=== PATIENT | male | born 1940 | race African-American/Black ===

== ENCOUNTER → 2017-01-23 | Outpatient (CLI) | payer MEDICARE, OTHER ==
--- NOTE | 2017-01-23 11:42 | RADIOLOGY REPORT (SQ) ---
EXAM DESCRIPTION: CT CHEST WITHOUT COMPLETED DATE/TIME: 01/23/2017 9:44 am REASON FOR STUDY: LUNG CA C34.2 MALIGNANT NEOPLASM OF MIDDLE LOBE, BRONCHUS OR LUNG COMPARISON: CT chest 05/02/2015, 05/07/2016 TECHNIQUE: CT scan performed of the chest without intravenous contrast. Images reviewed with lung, soft tissue and bone windows. Reconstructed coronal and sagittal MPR images reviewed. All images st ored on PACS. All CT scanners at this facility use dose modulation, iterative reconstruction, and/or weight based d osing when appropriate to reduce radiation dose to as low as reasonably achievable (ALARA). [facility]: Dose Right [facility]: CareDose [facility]: Dose Right [facility]: Teradose 4D [facility]: [employer] RADIATION DOSE: Up-to-date CT equipment and radiation dose reduction techniques were employed. CTDIv ol: 11.8 mGy. DLP: 464 mGy-cm. mGy. LIMITATIONS: No technical limitations. FINDINGS: LUNGS AND PLEURA: Post right middle lobectomy. Lungs are otherwise hyperinflated from obstructive disease, but free of focal nodules or worrisome fi ndings. No acute infiltrates. No pleural effusion. No pneumothorax. HILAR AND MEDIASTINAL STRUCTURES: No identified masses or abnormal nodes. No obvious aneurysm. HEART AND VASCULAR STRUCTURES: No aneurysm. No pericardial effusion. Moderate coronary artery calci fication UPPER ABDOMEN: 8 cm cluster of right upper pole renal cortical cysts with calcification along the per iphery, stable compared to 2015. 2 mm left upper pole intrarenal nonobstructive stone. 2 cm left ad renal nodule unchanged from 2015. THYROID AND OTHER SOFT TISSUES: No masses. No adenopathy. BONES: No significant finding. HARDWARE: None in the chest. OTHER: No other significant findings. IMPRESSION: Post right middle lobectomy. No CT signs of recurrent or metastatic disease given history of lung cancer. TECHNICAL DOCUMENTATION: JOB ID: [id number] Quality ID # 436: Final reports with documentation of one or more dose reduction techniques (e.g., Au tomated exposure control, adjustment of the mA and/or kV according to patient size, use of iterative reconstruction technique) 2010 [employer]- All Rights Reserved
== END ==
LOC: RAD 09:22
PROVIDERS: ATTEND Internal Medicine
DX: C34.2 Malignant neoplasm of middle lobe, bronchus or lung (principal)
CPT/HCPCS: 71250

== ENCOUNTER → 2017-06-04 | Outpatient (CLI) | payer MEDICARE, OTHER ==
--- NOTE | 2017-06-04 12:32 | RADIOLOGY REPORT (SQ) ---
EXAM DESCRIPTION: CT CHEST WITH; CT ABD/PELVIS WITH IV ORAL COMPLETED DATE/TIME: 06/04/2017 11:59 am REASON FOR STUDY: COPD (J44.9), LUNG CA (C34.90), LOWER ABD PAIN (R10.30) J44.9 CHRONIC OBSTRUCTIVE PULMONARY DISEASE, UNSPECIFIED C34.90 MALIGNANT NEOPLASM OF UNSP PART OF UNSP BRONCHUS OR L R10.30 LOWER ABDOMINAL PAIN, UNSPECIFIED COMPARISON: PET-CT 06/15/2016 CT chest 05/02/2015, 05/07/2016, 01/23/2017 CONTRAST TYPE AND DOSE: contrast/concentration: Isovue 370.00 mg/ml; Total Contrast Delivered: 100.0 ml; Total Saline Delivered: 41.2 ml RENAL FUNCTION: Creatinine 0.93 TECHNIQUE: CT scan of the chest performed using helical scanning technique with dynamic intravenous contrast injection. Images reviewed with lung, soft tissue and bone windows. Reconstructed coronal a nd sagittal MPR images reviewed. All images stored on PACS. CT scan of the abdomen and pelvis performed with intravenous and with oral contrastusing helical scan parisa technique with dynamic intravenous contrast injection. Images reviewed with lung, soft tissue a nd bone windows. Reconstructed coronal and sagittal MPR images reviewed. Delayed images for evaluat ion of the urinary system also acquired and evaluated. All images stored on PACS. All CT scanners at this facility use dose modulation, iterative reconstruction, and/or weight based d osing when appropriate to reduce radiation dose to as low as reasonably achievable (ALARA). [facility]: Dose Right [facility]: CareDose [facility]: Dose Right [facility]: Teradose 4D [facility]: [employer] RADIATION DOSE: Up-to-date CT equipment and radiation dose reduction techniques were employed. CTDIv ol: 13.5 - 17.3 mGy. DLP: 1847 mGy-cm. . LIMITATIONS: None. FINDINGS: CHEST: LUNGS AND PLEURA: Post right middle lobectomy with surgical janny at the right hilum. There are changes of obstructive disease at the lung apices, stable. No large bulla or blebs. No ac newtok infiltrates, pleural effusion, pneumothorax. Old post thoracotomy right pleural thickening on ax ial image 31. HILAR AND MEDIASTINAL STRUCTURES: No identified masses or abnormal nodes. HEART AND VASCULAR STRUCTURES: No aneurysm or dissection. No central pulmonary emboli. No pericardi al effusion. HARDWARE: None. THYROID AND OTHER SOFT TISSUES: No masses. No adenopathy. BONES: No significant finding. OTHER: No other significant finding. ABDOMEN AND PELVIS: LIVER: Normal size. No masses. No dilated ducts. SPLEEN: Normal size. No focal lesions. PANCREAS: No masses. No significant calcifications. No adjacent inflammation or peripancreatic fluid collections. Pancreatic duct not dilated. GALLBLADDER: No identified stones by CT criteria. No inflammatory changes to suggest cholecystitis. ADRENAL GLANDS: Right adrenal gland unremarkable. Stable partially calcified left adrenal nodule, le ss than 2 cm in size. RIGHT KIDNEY AND URETER: No solid masses. 8.5 cm diameter right upper and mid poles cortical cyst wi th calcified septation, unchanged compared to previous studies No significant calcification. No hydr onephrosis or hydroureter. LEFT KIDNEY AND URETER: No solid masses. 3 mm left midpole intrarenal nonobstructive stone. No hydr onephrosis or hydroureter. AORTA AND VESSELS: No aneurysm. No dissection. Renal arteries, SMA, celiac without stenosis. RETROPERITONEUM: No retroperitoneal adenopathy, hemorrhage or masses. BOWEL AND PERITONEAL CAVITY: No masses or inflammatory changes. No free fluid or peritoneal masses. Patient drank oral contrast. No evidence of bowel obstruction. APPENDIX: Surgically absent ABDOMINAL WALL: No masses. No hernias. BONES: No significant or acute findings. PELVIS: Enlarged prostate, indenting the bladder base. 1.4 cm stone in the bladder. No free pelvic fluid. No pelvic masses. IMPRESSION: Post right middle lobectomy. Changes of obstructive disease at both lung apices. No CT evidence of metastatic disease to the chest abdomen or pelvis. Enlarged prostate with indentation of the bladder base. 1.4 cm bladder calculus, nonobstructive. NORMAL CT OF THE ABDOMEN AND PELVIS WITH ORAL AND INTRAVENOUS CONTRAST. TECHNICAL DOCUMENTATION: JOB ID: [id number] Quality ID # 436: Final reports with documentation of one or more dose reduction techniques (e.g., Au tomated exposure control, adjustment of the mA and/or kV according to patient size, use of iterative reconstruction technique) 2010 [employer]- All Rights Reserved
== END ==
LOC: RAD 08:41
PROVIDERS: ATTEND Family Medicine
DX: J44.9 Chronic obstructive pulmonary disease, unspecified (principal); C34.2 Malignant neoplasm of middle lobe, bronchus or lung; R10.30 Lower abdominal pain, unspecified
CPT/HCPCS: 71260; 74177

== ENCOUNTER → 2017-10-13 | Outpatient (CLI) | payer MEDICARE, OTHER ==
--- NOTE | 2017-10-13 11:26 | RADIOLOGY REPORT (SQ) ---
EXAM DESCRIPTION: CT CHEST WITHOUT COMPLETED DATE/TIME: 10/13/2017 9:48 am REASON FOR STUDY: C34.2 MALIGNANT NEOPLASM OF MIDDLE LOBE, BRONCHUS OR LUNG C34.2 MALIGNANT NEOPLAS M OF MIDDLE LOBE, BRONCHUS OR LUNG COMPARISON: CT chest 05/02/2015, 05/07/2016, 01/23/2017, 06/14/2017 TECHNIQUE: CT scan performed of the chest without intravenous contrast. Images reviewed with lung, soft tissue and bone windows. Reconstructed coronal and sagittal MPR images reviewed. All images st ored on PACS. All CT scanners at this facility use dose modulation, iterative reconstruction, and/or weight based d osing when appropriate to reduce radiation dose to as low as reasonably achievable (ALARA). [facility]: Dose Right [facility]: CareDose [facility]: Dose Right [facility]: Teradose 4D [facility]: [employer] RADIATION DOSE: CT Rad equipment meets quality standard of care and radiation dose reduction techniq ues were employed. CTDIvol: 9.3 mGy. DLP: 352 mGy-cm. mGy. LIMITATIONS: No technical limitations. FINDINGS: LUNGS AND PLEURA: Post right middle lobectomy. Lungs are hyperinflated and hyperlucent from obstructive disease. No acute infiltrates. No worrisom e pulmonary nodules. No pleural effusion. No pneumothorax. HILAR AND MEDIASTINAL STRUCTURES: No identified masses or abnormal nodes. No obvious aneurysm. HEART AND VASCULAR STRUCTURES: No aneurysm. No pericardial effusion. Moderate LAD calcification UPPER ABDOMEN: Stable 8 to 9 cm right upper pole septated renal cyst with thin rim calcification. Fa intly radiopaque stones in the gallbladder. THYROID AND OTHER SOFT TISSUES: Mild gynecomastia BONES: No significant finding. HARDWARE: None in the chest. OTHER: No other significant findings. IMPRESSION: Post right middle lobectomy. Obstructive lung disease. TECHNICAL DOCUMENTATION: JOB ID: [id number] Quality ID # 436: Final reports with documentation of one or more dose reduction techniques (e.g., Au tomated exposure control, adjustment of the mA and/or kV according to patient size, use of iterative reconstruction technique) 2010 [employer]- All Rights Reserved Reading location - IP/workstation name: [facility]
== END ==
LOC: RAD 09:53
PROVIDERS: ATTEND Internal Medicine
DX: C34.2 Malignant neoplasm of middle lobe, bronchus or lung (principal)
CPT/HCPCS: 71250

== ENCOUNTER → 2018-02-18 | Outpatient (CLI) | payer MEDICARE, OTHER ==
--- NOTE | 2018-02-18 11:14 | RADIOLOGY REPORT (SQ) ---
EXAM DESCRIPTION: CT CHEST WITHOUT COMPLETED DATE/TIME: 02/18/2018 10:30 am REASON FOR STUDY: LUNG CA (C34.2) C34.2 MALIGNANT NEOPLASM OF MIDDLE LOBE, BRONCHUS OR LUNG COMPARISON: 2014, 2016, 10/13/2017 TECHNIQUE: CT scan performed of the chest without intravenous contrast. Images reviewed with lung, soft tissue and bone windows. Reconstructed coronal and sagittal MPR images reviewed. All images st ored on PACS. All CT scanners at this facility use dose modulation, iterative reconstruction, and/or weight based d osing when appropriate to reduce radiation dose to as low as reasonably achievable (ALARA). [facility]: Dose Right [facility]: CareDose [facility]: Dose Right [facility]: Teradose 4D [facility]: [employer] RADIATION DOSE: CT Rad equipment meets quality standard of care and radiation dose reduction techniq ues were employed. CTDIvol: 11.0 mGy. DLP: 413 mGy-cm. mGy. LIMITATIONS: No technical limitations. FINDINGS: LUNGS AND PLEURA: Emphysematous changes. No masses. HILAR AND MEDIASTINAL STRUCTURES: No identified masses or abnormal nodes. No obvious aneurysm. HEART AND VASCULAR STRUCTURES: No aneurysm. Coronary artery calcifications. UPPER ABDOMEN: Stable appearance of the right upper pole complex renal mass with rim calcification. . THYROID AND OTHER SOFT TISSUES: No masses. No adenopathy. BONES: No significant finding. HARDWARE: None in the chest. OTHER: No other significant findings. IMPRESSION: Stable appearance of the lungs. Emphysema. Stable appearance of the abdomen. Coronary artery calcification. TECHNICAL DOCUMENTATION: JOB ID: [id number] Quality ID # 436: Final reports with documentation of one or more dose reduction techniques (e.g., Au tomated exposure control, adjustment of the mA and/or kV according to patient size, use of iterative reconstruction technique) 2010 [employer]- All Rights Reserved Reading location - IP/workstation name: [email or web address]
== END ==
LOC: RAD 09:58
PROVIDERS: ATTEND Internal Medicine
DX: C34.2 Malignant neoplasm of middle lobe, bronchus or lung (principal)
CPT/HCPCS: 71250

== ENCOUNTER → 2018-06-22 | Outpatient (CLI) | payer MEDICARE, OTHER ==
--- NOTE | 2018-06-22 09:09 | RADIOLOGY REPORT (SQ) ---
EXAM DESCRIPTION: CT CHEST WITHOUT COMPLETED DATE/TIME: 06/22/2018 8:18 am REASON FOR STUDY: LUNG CA (C34.2) C34.2 MALIGNANT NEOPLASM OF MIDDLE LOBE, BRONCHUS OR LUNG COMPARISON: 02/18/2018 TECHNIQUE: CT scan performed of the chest without intravenous contrast. Images reviewed with lung, soft tissue and bone windows. Reconstructed coronal and sagittal MPR images reviewed. All images st ored on PACS. All CT scanners at this facility use dose modulation, iterative reconstruction, and/or weight based d osing when appropriate to reduce radiation dose to as low as reasonably achievable (ALARA). [facility]: Dose Right [facility]: CareDose [facility]: Dose Right [facility]: Teradose 4D [facility]: [employer] RADIATION DOSE: CT Rad equipment meets quality standard of care and radiation dose reduction techniq ues were employed. CTDIvol: 11.2 mGy. DLP: 435 mGy-cm. mGy. LIMITATIONS: No technical limitations. FINDINGS: LUNGS AND PLEURA: Emphysematous changes in the lungs, stable findings. Stable post surgi madhu changes in the right hemithorax related to prior right middle lobectomy. Stable areas of linear scarring in the lungs, more so on the right. Patchy mild new nodular infiltrate in the right lower lobe, may be on the basis of atypical infection s, inflammatory/infectious etiologies. Stable mild bronchiectatic changes. No pneumothorax or pleural effusion. The central airways are cl ear. HILAR AND MEDIASTINAL STRUCTURES: No significant interval changes. HEART AND VASCULAR STRUCTURES: Mild atherosclerotic changes involving the thoracic aorta. Stable an eurysmal dilatation of the proximal descending thoracic aorta which measures 3.9 cm in diameter. Cor onary artery calcifications. No pericardial effusion. UPPER ABDOMEN: Stable complex appearing partially visualized upper-mid pole renal cyst with calcifie d septations. Small stable calcified granuloma. Small gallstones, stable finding. Mild atheroscler otic changes involving the visualized abdominal aorta. Limited exam. THYROID AND OTHER SOFT TISSUES: The visualized thyroid gland is stable in appearance. BONES: The osseous structures are stable in appearance. HARDWARE: None in the chest. OTHER: Bilateral gynecomastia, greater on the right, stable finding. IMPRESSION: 1. Since the previous examination dated 02/18/2018, patchy new mild nodular infiltrate i n the right lower lobe, may be on the basis of atypical infections, inflammatory/infectious etiologie s. 2. Stable post surgical changes in the right hemithorax. 3. Emphysematous changes in the lungs. 4. Additional stable findings as above. TECHNICAL DOCUMENTATION: JOB ID: [id number] Quality ID # 436: Final reports with documentation of one or more dose reduction techniques (e.g., Au tomated exposure control, adjustment of the mA and/or kV according to patient size, use of iterative reconstruction technique) 2010 [employer]- All Rights Reserved Reading location - IP/workstation name: [email or web address]
== END ==
LOC: RAD 07:58
PROVIDERS: ATTEND Physician Assistant Medical
DX: C34.2 Malignant neoplasm of middle lobe, bronchus or lung (principal)
CPT/HCPCS: 71250

== ENCOUNTER → 2018-12-21 | Outpatient (CLI) | payer MEDICARE, OTHER ==
--- NOTE | 2018-12-21 10:21 | RADIOLOGY REPORT (SQ) ---
EXAM DESCRIPTION: CT CHEST WITHOUT COMPLETED DATE/TIME: 12/21/2018 8:07 am REASON FOR STUDY: LUNG CA (C34.2) C34.2 MALIGNANT NEOPLASM OF MIDDLE LOBE, BRONCHUS OR LUNG COMPARISON: PET-CT 06/23/2016 CT chest 01/23/2017, 06/04/2017, 10/13/2017, 02/18/2018, 06/22/2018 TECHNIQUE: CT scan performed of the chest without intravenous contrast. Images reviewed with lung, soft tissue and bone windows. Reconstructed coronal and sagittal MPR images reviewed. All images st ored on PACS. All CT scanners at this facility use dose modulation, iterative reconstruction, and/or weight based d osing when appropriate to reduce radiation dose to as low as reasonably achievable (ALARA). [facility]: Dose Right [facility]: CareDose [facility]: Dose Right [facility]: Teradose 4D [facility]: [employer] RADIATION DOSE: CT Rad equipment meets quality standard of care and radiation dose reduction techniq ues were employed. CTDIvol: 10.1 mGy. DLP: 399 mGy-cm. mGy. LIMITATIONS: No technical limitations. FINDINGS: LUNGS AND PLEURA: Old right middle lobectomy. Changes of obstructive lung disease. Bronchiolitis tree in bud appearance in the right posterior costophrenic sulcus is unchanged from . No acute infiltrates. No pleural effusion. No pneumothorax. No worrisome pulmonary nodul es. HILAR AND MEDIASTINAL STRUCTURES: No hilar or mediastinal masses or adenopathy. HEART AND VASCULAR STRUCTURES: Stable mild ectasia of the proximal descending thoracic aorta, 3.9 cm in diameter. Moderate proximal LAD atherosclerotic calcification No pericardial effusion. UPPER ABDOMEN: Stable peripherally calcified complex cyst right upper pole kidney, faintly radiopaque gallstones, 1 cm calcified left adrenal nodule THYROID AND OTHER SOFT TISSUES: Bilateral gynecomastia BONES: No significant finding. HARDWARE: None in the chest. OTHER: No other significant findings. IMPRESSION: Post right middle lobectomy. Obstructive lung disease. TECHNICAL DOCUMENTATION: JOB ID: [id number] Quality ID # 436: Final reports with documentation of one or more dose reduction techniques (e.g., Au tomated exposure control, adjustment of the mA and/or kV according to patient size, use of iterative reconstruction technique) 2010 [employer]- All Rights Reserved Reading location - IP/workstation name: [facility]
== END ==
LOC: RAD 07:50
PROVIDERS: ATTEND Internal Medicine
DX: C34.2 Malignant neoplasm of middle lobe, bronchus or lung (principal)
CPT/HCPCS: 71250

== ENCOUNTER → 2019-03-04 | Outpatient (CLI) | payer MEDICARE, OTHER ==
--- NOTE | 2019-03-04 15:51 | RADIOLOGY REPORT (SQ) ---
EXAM DESCRIPTION: CT CHEST WITH COMPLETED DATE/TIME: 03/04/2019 2:42 pm REASON FOR STUDY: LUNG CA (C34.90) C34.90 MALIGNANT NEOPLASM OF UNSP PART OF UNSP BRONCHUS OR L COMPARISON: 12/21/2018 TECHNIQUE: CT scan of the chest performed using helical scanning technique with dynamic intravenous contrast injection. Images reviewed with lung, soft tissue and bone windows. Reconstructed coronal and sagittal MPR and MIP images reviewed. All images stored on PACS. All CT scanners at this facility use dose modulation, iterative reconstruction, and/or weight based d osing when appropriate to reduce radiation dose to as low as reasonably achievable (ALARA). [facility]: Dose Right [facility]: CareDose [facility]: Dose Right [facility]: Teradose 4D [facility]: [employer] CONTRAST TYPE AND DOSE: contrast/concentration: Isovue 350.00 mg/ml; Total Contrast Delivered: 80.0 ml; Total Saline Delivered: 55.0 ml RENAL FUNCTION: Not recorded here. Refer to technologist's notes. RADIATION DOSE: CT Rad equipment meets quality standard of care and radiation dose reduction techniq ues were employed. CTDIvol: 11.2 mGy. DLP: 483 mGy-cm. . LIMITATIONS: None. FINDINGS: LUNGS AND PLEURA: Mild centrilobular emphysema in the upper lobes. Lungs are generally hy perexpanded. There is no mass, infiltrate, or effusion. Right middle lobectomy. HILAR AND MEDIASTINAL STRUCTURES: No identified masses or abnormal nodes. HEART AND VASCULAR STRUCTURES: No aneurysm or dissection. No central pulmonary emboli. No pericardi al effusion. HARDWARE: None in the chest. UPPER ABDOMEN: Large septated cyst in the right kidney with septal calcifications. THYROID AND OTHER SOFT TISSUES: No masses. No adenopathy. BONES: No significant finding. OTHER: No other significant finding. IMPRESSION: Prior right middle lobectomy. Chronic lung changes. No evidence of metastatic disease or recurrence. Atypical right renal cyst. TECHNICAL DOCUMENTATION: JOB ID: [id number] Quality ID # 436: Final reports with documentation of one or more dose reduction techniques (e.g., Au tomated exposure control, adjustment of the mA and/or kV according to patient size, use of iterative reconstruction technique) 2010 [employer]- All Rights Reserved Reading location - IP/workstation name: [email or web address]
== END ==
LOC: RAD 14:19
PROVIDERS: ATTEND Family Medicine
DX: C34.90 Malignant neoplasm of unspecified part of unspecified bronchus or lung (principal)
CPT/HCPCS: 71260; 82565

== ENCOUNTER → 2019-03-09 | Outpatient (CLI) | payer MEDICARE, OTHER ==
--- NOTE | 2019-03-09 15:34 | RADIOLOGY REPORT (SQ) ---
EXAM DESCRIPTION: CT ABD/PELVIS WITH IV ORAL COMPLETED DATE/TIME: 03/09/2019 1:53 pm REASON FOR STUDY: R10.13 EPIGASTRIC PAIN C34.90 MALIGNANT NEOPLASM OF UNSP PART OF UNSP BRONC R10.13 EPIGASTRIC PAIN C34.90 MALIGNANT NEOPLASM OF UNSP PART OF UNSP BRONCHUS OR L COMPARISON: 06/04/2017 TECHNIQUE: CT scan of the abdomen and pelvis performed using helical scanning technique with dynamic intravenous contrast injection. No oral contrast. Images reviewed with lung, soft tissue, and bone windows. Reconstructed coronal and sagittal MPR images reviewed. Delayed images for evaluation of the urinary system also acquired. All images stored on PACS. All CT scanners at this facility use dose modulation, iterative reconstruction, and/or weight based d osing when appropriate to reduce radiation dose to as low as reasonably achievable (ALARA). [facility]: Dose Right [facility]: CareDose [facility]: Dose Right [facility]: Teradose 4D [facility]: [employer] CONTRAST TYPE AND DOSE: contrast/concentration: Isovue 350.00 mg/ml; Total Contrast Delivered: 100.0 ml; Total Saline Delivered: 70.0 ml RENAL FUNCTION: Creatinine RADIATION DOSE: CT Rad equipment meets quality standard of care and radiation dose reduction techniq ues were employed. CTDIvol: 11.9 - 15.6 mGy. DLP: 1525 mGy-cm.. LIMITATIONS: None. FINDINGS: LOWER CHEST: No significant findings. No nodules or infiltrates. LIVER: Hepatic steatosis. No focal lesions. No biliary ductal dilation. SPLEEN: Normal size. No focal lesions. PANCREAS: No masses. No significant calcifications. No adjacent inflammation or peripancreatic fluid collections. Pancreatic duct not dilated. GALLBLADDER: Decompressed. No radiopaque stones. ADRENAL GLANDS: Unchanged left adrenal gland calcifications and nodular thickening. Unremarkable rig ht adrenal gland. RIGHT KIDNEY AND URETER: Unchanged right renal cysts, some of which demonstrate peripheral calcificat ions. No nephrolithiasis. No hydronephrosis or hydroureter. LEFT KIDNEY AND URETER: No solid masses. No significant calcifications. No hydronephrosis or hydr oureter. AORTA AND VESSELS: No aneurysm. No dissection. Renal arteries, SMA, celiac without stenosis. RETROPERITONEUM: No retroperitoneal adenopathy, hemorrhage or masses. BOWEL AND PERITONEAL CAVITY: No evidence of intestinal obstruction. No focal bowel wall thickening. APPENDIX: Not visualized. PELVIS: Unremarkable urinary bladder. Decreased size of the prostate compared to prior exam. No lym phadenopathy. No free pelvic fluid. ABDOMINAL WALL: No masses. No hernias. BONES: No significant or acute findings. OTHER: No other significant finding. IMPRESSION: 1. No evidence of intra-abdominal/pelvic metastatic disease. 2. No evidence of acute intra-abdominal/pelvic process. 3. Hepatic steatosis. TECHNICAL DOCUMENTATION: JOB ID: [id number] Quality ID # 436: Final reports with documentation of one or more dose reduction techniques (e.g., Au tomated exposure control, adjustment of the mA and/or kV according to patient size, use of iterative reconstruction technique) 2010 [employer]- All Rights Reserved Reading location - IP/workstation name: [email or web address]
== END ==
LOC: RAD 13:19
PROVIDERS: ATTEND Family Medicine
DX: C34.90 Malignant neoplasm of unspecified part of unspecified bronchus or lung (principal); K76.0 Fatty (change of) liver, not elsewhere classified; R10.13 Epigastric pain
CPT/HCPCS: 74177

== ENCOUNTER 2019-05-03 08:18 | Day surgery (SDC) | payer MEDICARE, OTHER ==
[~2019-05-03 08:18] MED LIST: CHONDR SU A NA/HYALUR INTRAOC KIT (SURGICARE) ONE; EPINEPHRINE INJ/PF 1 MG/1 ML AMPULE ONE; KETOROLAC TROMETHAMINE 0.45% 4 DROP/0.4 ML DROPERETTE OS PRN; LIDOCAINE 1%/PHENYLEPHRINE 1.5% 1 ML VIAL ONE
[2019-05-03] MEDS: CYCLOPENTOLATE 0.2%/PHENYLEPHRINE 1% OPH SOLN 2 ML OS PRN ×3 (09:23→09:53)
[2019-05-03] MEDS: TROPICAMIDE 1% OPH SOLN 15 ML OS PRN ×3 (09:23→09:53)
[2019-05-03] MEDS: BESIFLOXACIN HCL 0.6% OPH SUSP 5 ML BOTTLE OS PRN ×4 (09:23→10:26)
[2019-05-03] MEDS: TETRACAINE HCL 0.5% OPH SOLN 4 ML OS PRN ×3 (09:24→10:08)
[2019-05-03] MEDS ORDERED: MIDAZOLAM 2 MG/2 ML INJ ONE (09:50)
[2019-05-03] MEDS ORDERED: FENTANYL CITRATE INJ/PF 100 MCG/2 ML AMPUL ONE (09:50)
[2019-05-03] MEDS: DORZOLAMIDE HCL 2%/TIMOLOL MALEAT 0.5% OPH SOLN 10 ML OS PRN ×2 (10:26)
--- NOTE | 2019-05-03 12:18 | Operative Report ---
Operative Report-[facility] Operative Report: DATE OF SURGERY: 05/04/2019 PREOPERATIVE DIAGNOSIS: Cataracts, left eye POSTOPERATIVE DIAGNOSIS: Cataract, left eye OPERATION: Cataract extraction with insertion of an IOL of the left eye. Intraocular Lens Model: [21.0 sn60wf] reason for surgery was difficulty seeing the television SURGEON: Marcel Silveira MD ANESTHESIA: Topical PROCEDURE: After obtaining appropriate consent, the patient's left eye was prepped and draped in a sterile fashion as well as the surgeon in the sterile manner and cataract surgery was started. First a paracentesis blade was used to make a side-port incision. Viscoelastic was used to inflate the anterior chamber. Next a 2.4 mm incision was made with a 2.4 mm blade, clear corneal temporarily. A continuous capsulorrhexis was made using a cystotome and Utrata forceps. Following this hydrodissection was carried out to make commands fully loose and mobile and it was rotated 90 degrees. Following this, a divide and conquer technique was used to phacoemulsify the lens. The remaining cortex was removed with an irrigation/aspiration. Provisc was instilled into the capsular bag to inflate the bag.The intracular lens was placed. The remaining viscoelastic material was removed with irrigation/aspiration. Following this, the incision was found to be watertight. Besivance and Cosopt was instilled into the eye and a protective shield was placed over the eye. The patient was turned to the postoperative recovery in a stable condition.
== END 2019-05-03 11:12 | disposition home or self-care (01) ==
LOC: SC 08:18
PROVIDERS: ATTEND Internal Medicine
DX: H25.812 Combined forms of age-related cataract, left eye (principal); I10 Essential (primary) hypertension; E11.9 Type 2 diabetes mellitus without complications; Z79.899 Other long term (current) drug therapy; Z79.84 Long term (current) use of oral hypoglycemic drugs; Z85.118 Personal history of other malignant neoplasm of bronchus and lung
CPT/HCPCS: 66984; 82962; J2250; J3490 ×2; A9270; J0171; J3010; J2370; V2632

== ENCOUNTER 2019-06-02 09:06 | Day surgery (SDC) | payer MEDICARE, OTHER ==
[~2019-06-02 09:06] MED LIST changes: +KETOROLAC TROMETHAMINE 0.45% 4 DROP/0.4 ML DROPERETTE OD PRN; -KETOROLAC TROMETHAMINE 0.45% 4 DROP/0.4 ML DROPERETTE OS PRN
[2019-06-02] MEDS ORDERED: ONDANSETRON HCL INJ/PF 4 MG/2 ML SDV ONE (09:26)
[2019-06-02] MEDS ORDERED: MIDAZOLAM 2 MG/2 ML INJ ONE (09:26)
[2019-06-02] MEDS ORDERED: FENTANYL CITRATE INJ/PF 100 MCG/2 ML AMPUL ONE (09:26)
[2019-06-02] MEDS: BESIFLOXACIN HCL 0.6% OPH SUSP 5 ML BOTTLE OD PRN ×4 (10:05→11:07)
[2019-06-02] MEDS: CYCLOPENTOLATE 0.2%/PHENYLEPHRINE 1% OPH SOLN 2 ML OD PRN ×3 (10:05→10:30)
[2019-06-02] MEDS: TETRACAINE HCL 0.5% OPH SOLN 4 ML OD PRN ×3 (10:05→10:48)
[2019-06-02] MEDS: TROPICAMIDE 1% OPH SOLN 15 ML OD PRN ×3 (10:05→10:30)
[2019-06-02] MEDS: DORZOLAMIDE HCL 2%/TIMOLOL MALEAT 0.5% OPH SOLN 10 ML OD PRN ×2 (10:58→11:07)
--- NOTE | 2019-06-03 07:10 | Operative Report ---
Operative Report-[facility] Operative Report: DATE OF SURGERY: 06/02/2019 PREOPERATIVE DIAGNOSIS: Cataract, right eye POSTOPERATIVE DIAGNOSIS: Cataract, right eye OPERATION: Cataract extraction with insertion of an IOL of the right eye. Intraocular Lens Model: [20.5mp45oj] Reason for surgery was difficulty seeing words on the television SURGEON: Marcel Silveira MD ANESTHESIA: Topical PROCEDURE: After obtaining appropriate consent, the patient's right eye was prepped and draped in a sterile fashion as well as the surgeon in the sterile manner and cataract surgery was started. First a paracentesis blade was used to make a side-port incision. Viscoelastic was used to inflate the anterior chamber. Next a 2.4 mm incision was made with a 2.4 mm blade, clear corneal temporarily. A continuous capsulorrhexis was made using a cystotome and Utrata forceps. Following this hydrodissection was carried out to make the katherin fully loose and mobile and it was rotated. Following this, a divide and conquer technique was used to phacoemulsify the katherin. The remaining cortex was removed with an irrigation/aspiration. Provisc was instilled into the capsular bag to inflate the bag. The intraocular lens was placed. The remaining viscoelastic material was removed with irrigation/aspiration. Following this, the incision was found to be watertight. Besivance and Cosopt was instilled into the eye and a protective shield was placed over the eye. The patient was reurned to the postoperative recovery in a stable condition.
== END 2019-06-02 11:47 | disposition home or self-care (01) ==
LOC: SC 09:06
PROVIDERS: ATTEND Internal Medicine
DX: H25.811 Combined forms of age-related cataract, right eye (principal); Z96.1 Presence of intraocular lens; H40.1132 Primary open-angle glaucoma, bilateral, moderate stage; G47.33 Obstructive sleep apnea (adult) (pediatric); Z85.118 Personal history of other malignant neoplasm of bronchus and lung
CPT/HCPCS: 66984; 82962; V2632; J2250; J3490 ×2; A9270; J0171; J2405; J2370; 142; J3010

== ENCOUNTER → 2019-07-01 | Outpatient (CLI) | payer MEDICARE, OTHER ==
--- NOTE | 2019-07-01 14:57 | RADIOLOGY REPORT (SQ) ---
EXAM DESCRIPTION: CT CHEST WITHOUT COMPLETED DATE/TIME: 07/01/2019 1:42 pm REASON FOR STUDY: C34.2 MALIGNANT NEOPLASM OF MIDDLE LOBE, BRONCHUS OR LUNG C34.2 MALIGNANT NEOPLAS M OF MIDDLE LOBE, BRONCHUS OR LUNG COMPARISON: 03/04/2019 TECHNIQUE: CT scan performed of the chest without intravenous contrast. Images reviewed with lung, soft tissue and bone windows. Reconstructed coronal and sagittal MPR images reviewed. All images st ored on PACS. All CT scanners at this facility use dose modulation, iterative reconstruction, and/or weight based d osing when appropriate to reduce radiation dose to as low as reasonably achievable (ALARA). [facility]: Dose Right [facility]: CareDose [facility]: Dose Right [facility]: Teradose 4D [facility]: [email or web address] RADIATION DOSE: CT Rad equipment meets quality standard of care and radiation dose reduction techniq ues were employed. CTDIvol: 9.8 mGy. DLP: 365 mGy-cm. mGy. LIMITATIONS: No technical limitations. FINDINGS: LUNGS AND PLEURA: Postsurgical changes from the right middle lobectomy. No new discrete n odules or masses. Mild right basilar nodular pleural thickening, likely postsurgical. Mild addition al right basilar ground-glass attenuation and scarring. Mild upper lobe predominant emphysema. No p leural effusion or pneumothorax. HILAR AND MEDIASTINAL STRUCTURES: No discrete mediastinal, hilar or axillary adenopathy. 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 HEART AND VASCULAR STRUCTURES: Scattered coronary atherosclerosis. Normal heart size. No pericardia l effusion. UPPER ABDOMEN: Unchanged right renal cystic lesion with septal calcifications. THYROID AND OTHER SOFT TISSUES: Unremarkable thyroid. Gynecomastia BONES: No significant finding. HARDWARE: None in the chest. OTHER: No other significant findings. IMPRESSION: Stable postsurgical changes within the right hemithorax without evidence of new intratho racic disease. 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 Stable partially evaluated complex right renal cyst. TECHNICAL DOCUMENTATION: JOB ID: [id number] Quality ID # [id number]: Final reports with documentation of one or more dose reduction techniques (e.g., Au tomated exposure control, adjustment of the mA and/or kV according to patient size, use of iterative reconstruction technique) 2010 [employer]- All Rights Reserved Reading location - IP/workstation name: [email or web address]
== END ==
LOC: RAD 13:24
PROVIDERS: ATTEND Internal Medicine
DX: C34.2 Malignant neoplasm of middle lobe, bronchus or lung (principal); N28.1 Cyst of kidney, acquired
CPT/HCPCS: 71250

== ENCOUNTER → 2020-01-02 | Outpatient (CLI) | payer MEDICARE, OTHER ==
--- NOTE | 2020-01-02 09:54 | RADIOLOGY REPORT (SQ) ---
EXAM DESCRIPTION: CT CHEST WITHOUT IMAGES COMPLETED DATE/TIME: 01/02/2020 7:45 am REASON FOR STUDY: MAL HARJEET OF MIDDLE LOBE C34.2 MALIGNANT NEOPLASM OF MIDDLE LOBE, BRONCHUS OR LUNG COMPARISON: CT of the chest without contrast from 07/01/2019. TECHNIQUE: CT scan performed of the chest without intravenous contrast. Images reviewed with lung, soft tissue and bone windows. Reconstructed coronal and sagittal MPR images reviewed. All images st ored on PACS. All CT scanners at this facility use dose modulation, iterative reconstruction, and/or weight based d osing when appropriate to reduce radiation dose to as low as reasonably achievable (ALARA). [facility]: Dose Right [facility]: CareDose [facility]: Dose Right [facility]: Teradose 4D [facility]: [employer] RADIATION DOSE: CT Rad equipment meets quality standard of care and radiation dose reduction techniq ues were employed. CTDIvol: 14.7 mGy. DLP: 654 mGy-cm. LIMITATIONS: No technical limitations. FINDINGS: LUNGS AND PLEURA: Status post right middle lobectomy. There is unchanged upper lobe predo minant centrilobular emphysema. The areas of bronchiectasis/bronchiectasis with nonsegmental mucous plugs in the lower lobes and the peripheral/dependent reticulonodular opacities in the lower lobes (r ight greater than left) are also unchanged. There is no acute consolidation, ground-glass opacificat ion or pleural effusion. HILAR AND MEDIASTINAL STRUCTURES: Evaluation of the tk for adenopathy is limited due to the absence of intravenous contrast. There is no mediastinal adenopathy or mass. HEART AND VASCULAR STRUCTURES: Atherosclerotic calcification of the coronary arteries and thoracic ao rta. The caliber of the aortic arch is unchanged. There is no cardiomegaly or pericardial effusion. UPPER ABDOMEN: Hepatic steatosis, cholelithiasis, 18 x 12 mm left adrenal nodule with round calcifica tion, 3 mm left upper pole caliceal calculus and complex partially exophytic right renal cyst. THYROID AND OTHER SOFT TISSUES: Gynecomastia. There is no adenopathy or mass. BONES: Partial osseous bridge between the right 7th and 8th ribs. There is no acute fracture or osse ous lesion. HARDWARE: None in the chest. OTHER: No other findings. IMPRESSION: 1. Unchanged chronic findings as detailed above. There is no acute cardiopulmonary proc ess. 2. Unchanged caliber of the aortic arch. TECHNICAL DOCUMENTATION: JOB ID: [id number] Quality ID # [id number]: Final reports with documentation of one or more dose reduction techniques (e.g., Au tomated exposure control, adjustment of the mA and/or kV according to patient size, use of iterative reconstruction technique) 2010 [employer]- All Rights Reserved Reading location - IP/workstation name: [email or web address]
== END ==
LOC: RAD 07:49
PROVIDERS: ATTEND Internal Medicine
DX: C34.2 Malignant neoplasm of middle lobe, bronchus or lung (principal)
CPT/HCPCS: 71250

== ENCOUNTER 2020-07-03 11:41 | Inpatient (IN) | payer MEDICARE, OTHER ==
[2020-07-03] MEDS ORDERED: FAMOTIDINE INJ/PF 20 MG/2 ML SDV IV ONE (12:04)
[2020-07-03] MEDS ORDERED: DEXAMETHASONE SOD PHOS INJ 10 MG/1 ML VIAL IV ONE (12:04)
[2020-07-03] MEDS ORDERED: AZITHROMYCIN INJ 500 MG VIAL IV ONE (12:05)
--- NOTE | 2020-07-03 12:10 | ER Document Report ---
ED Respiratory Problem - General Chief Complaint: Shortness Of Breath Stated Complaint: BREATHING PROBLEMS Time Seen by Provider: 07/03/20 12:02 Mode of Arrival: Medic Information source: Patient, Emergency Med Personnel Notes: MY NOTES 79-year-old black male arrives by EMS with acute onset of shortness of breath dyspnea. He was positive for COVID-19 last .Today is Thursday. Patient reports 5 years ago at [facility] he had a right middle lobe pneumonectomy pneumonectomy on the right because of lung cancer. He is followed by Dr. Mckeon as well as Dr. Donovan for PMD. Per EMS he received CPaP because of a 42 room air pulse ox. He was given Xopenex 1.25 as well as 2 treatments of albuterol Atrovent. Also patient was given 2 g of magnesium and Solu-Medrol 125 IV. Patient arrives with CPAP at 85%. This was adjusted by the cable splicing technician in room #5 and he increased to 97% with cold fingers. He had 28 breaths/min. A quick Covid test per EMS was negative. He is running fever today. Status post breathing treatments patient has expiratory crackles bilaterally anterior chest. Patient is awake and alert and very conversive and able to give full sentences. Patient takes eyedrops timolol and takes metoprolol 50 p.o. as well as Zocor and Metformin and Durezol Symbicort PROLENSA. His last CT was 02 January 2020 with gynecomastia cholelithiasis fatty liver and s tatus post right middle lobe lobectomy per Dr. Cueto. TRAVEL OUTSIDE OF THE [place] IN LAST 30 DAYS: No - HPI Patient complains to provider of: Chest pain, CHF, Cough, Short of breath Onset: This morning Duration: Better Initiating Event: Exertion Quality of pain: No pain Severity: Moderate Pain Level: 3 Context: Hx CHF, Hx COPD Short of Breath: Severe - Related Data Allergies/Adverse Reactions: No Known Drug Allergies Allergy (Verified 05/30/19 13:52) Past Medical History - General Information source: Patient - Social History Smoking Status: Former Smoker Cigarette use (# per day): No Chew tobacco use (# tins/day): No Smoking Education Provided: No Frequency of alcohol use: None Drug Abuse: None Lives with: Family Family History: Reviewed & Not Pertinent Patient has suicidal ideation: No Patient has homicidal ideation: No - Past Medical History Cardiac Medical History: Reports: Hx Hypercholesterolemia, Hx Hypertension Denies: Hx Heart Attack Pulmonary Medical History: Denies: Hx Asthma Neurological Medical History: Denies: Hx Cerebrovascular Accident, Hx Seizures Endocrine Medical History: Reports: Hx Diabetes Mellitus Type 2 GI Medical History: Denies: Hx Hepatitis, Hx Hiatal Hernia, Hx Ulcer Infectious Medical History: Denies: Hx Hepatitis Past Surgical History: Denies: Hx Open Heart Surgery, Hx Pacemaker - Immunizations Hx Diphtheria, Pertussis, Tetanus Vaccination: No Review of Systems - Review of Systems Constitutional: See HPI, Fever, Weakness, Recent illness EENT: No symptoms reported Cardiovascular: No symptoms reported Respiratory: See HPI, Cough, Hurts to breathe, Short of breath, Sputum, Wheezing Gastrointestinal: No symptoms reported Genitourinary: No symptoms reported Male Genitourinary: No symptoms reported Musculoskeletal: No symptoms reported Skin: No symptoms reported Hematologic/Lymphatic: No symptoms reported Neurological/Psychological: No symptoms reported -: Yes All other systems reviewed and negative Physical Exam - Vital signs Vitals: Resp Pulse Ox 30 H 97 07/03/20 11:45 07/03/20 11:45 Interpretation: Hypertensive, Tachycardic, Hypoxic, Tachypneic - General General appearance: Appears well, Alert - HEENT Head: Normocephalic, Atraumatic Eyes: Normal Pupils: PERRL - Respiratory Respiratory status: Respiratory distress, Labored, Tachypnea Chest status: Nontender Breath sounds: Rales - Anterior chest wheezing, Wheezing Chest palpation: Normal - Cardiovascular Rhythm: Tachycardia Heart sounds: Normal auscultation Murmur: No - Abdominal Inspection: Obese Distension: Distended Bowel sounds: Normal Tenderness: Nontender Organomegaly: No organomegaly - Rectal Prostate: Other - Deferred - Genitourinary Scrotum: Other - Deferred - Back Back: Normal, Nontender - Extremities General upper extremity: Nontender, Edema, Normal color, Normal ROM, Normal temperature General lower extremity: Nontender, Edema, Normal color, Normal ROM, Normal temperature, Normal weight bearing. No: Octaviano's sign - Neurological Neuro grossly intact: Yes Cognition: Normal Orientation: AAOx4 [place] Coma Scale Eye Opening: Spontaneous [place] Coma Scale Verbal: Oriented [place] Coma Scale Motor: Obeys Commands [place] Coma Scale Total: 15 Speech: Normal Motor strength normal: LUE, RUE, LLE, RLE Sensory: Normal - Psychological Associated symptoms: Anxious - Skin Skin Temperature: Warm Skin Moisture: Dry Skin Color: Normal Course - Vital Signs Vital signs: Temp Pulse Resp BP Pulse Ox 101.5 F H 23 H 154/87 H 91 L 07/03/20 12:12 07/03/20 13:31 07/03/20 13:31 07/03/20 13:31 - Laboratory Results Result Diagrams: 07/03/20 11:58 07/03/20 11:58 Laboratory Results Interpreted: 07/03/20 07/03/20 07/03/20 11:58 11:58 11:58 Hgb 12.8 L RDW 14.6 H Seg Neuts % (Manual) 94 H Lymphocytes % (Manual) 3 L Monocytes % (Manual) 2 L Abs Neuts (Manual) 9.5 H Abs Lymphs (Manual) 0.4 L PT 15.6 H Carbonic Acid ABG pCO2 Est GFR (MDRD) Non-Af 57 L Glucose 175 H AST 103 H ALT 59 H 07/03/20 13:35 Hgb RDW Seg Neuts % (Manual) Lymphocytes % (Manual) Monocytes % (Manual) Abs Neuts (Manual) Abs Lymphs (Manual) PT Carbonic Acid 1.03 L ABG pCO2 34.1 L Est GFR (MDRD) Non-Af Glucose AST ALT Critical Laboratory Results Reviewed: Yes - Radiology Results Radiology Studies Status: Radiology Image Reviewed, Radiology Report Reviewed - I evaluated both report and image. Critical Radiology Results Reviewed: Yes - EKG Interpretation by Me EKG shows normal: Sinus rhythm Rate: Normal Rhythm: NSR - 95 bpm with lvh with sec repolarization borderline prolonged QT interval and his case was discussed with Dr. Cueto as well as Dr. Donovan. I evaluated this EKG and I agree with the EKG machine findings. Critical Care Note - Critical Care Note Total time excluding time spent on procedures (mins): 30 Comments: because of prolonged time with this pts doctors and also consults; 30 minutes CC; I spoke with Dr. Mckeon at 1345 and he advises admission and CT scan of chest. Also advised patient had troponin of 0.08.. I also spoke with Dr. Donovan about this patient and he advises Covid floor and also speak with Dr. Cueto about his elevated troponin. And he also advises he wants a influenza test as well as Covid test.Covid pos in as well. Discharge - Discharge Clinical Impression: Acute respiratory disease, Hypoxia, COVID-19 virus RNA test result unknown COPD (chronic obstructive pulmonary disease) Qualifiers: COPD type: COPD with acute exacerbation Qualified Code(s): J44.1 - Chronic obst ructive pulmonary disease with (acute) exacerbation Fever Qualifiers: Fever type: unspecified Qualified Code(s): R50.9 - Fever, unspecified Condition: Stable Disposition: ADMITTED INPATIENT Admitting Provider: Zion
[2020-07-03 12:31] LABS: HEMOGLOBIN 12.8 g/dL (13.5-17.0); MEAN CORPUSCULAR HEMOGLOBIN 28.3 pg (27.0-33.4); MEAN CORPUSCULAR HGB CONC 32.8 g/dL (32.0-36.0); MEAN CORPUSCULAR VOLUME 86 fl (80-97); PLATELET COUNT 264 10^3/uL (150-450); RED BLOOD COUNT 4.52 10^6/uL (4.35-5.55); RED CELL DISTRIBUTION WIDTH 14.6 % (11.5-14.0); WHITE BLOOD COUNT 10.1 10^3/uL (4.0-10.5)
[2020-07-03 12:37] LABS: INTERNATIONAL RATION (INR) 1.22; PROTHROMBIN TIME 15.6 SEC (11.4-15.4)
[2020-07-03 12:38] LABS: PARTIAL THROMBOPLASTIN TIME 35.1 SEC (23.5-35.8)
[2020-07-03 12:47] LABS: ALBUMIN 3.6 g/dL (3.5-5.0); ALKALINE PHOSPHATASE 87 U/L (38-126); ANION GAP 10 (5-19); ASPARTATE AMINO TRANSFERASE 103 U/L (17-59); BILIRUBIN,DIRECT 0.3 mg/dL (0.0-0.4); BILIRUBIN,TOTAL 0.7 mg/dL (0.2-1.3); BLOOD UREA NITROGEN 20 mg/dL (7-20); CALCIUM 8.4 mg/dL (8.4-10.2); CARBON DIOXIDE 25 mmol/L (22-30); CHLORIDE 105 mmol/L (98-107); GLUCOSE 175 mg/dL (75-110); POTASSIUM 3.9 mmol/L (3.6-5.0); TOTAL PROTEIN 7.8 g/dL (6.3-8.2)
[2020-07-03 12:49] LABS: ABSOLUTE LYMPHOCYTES# (MANUAL) 0.4 10^3/uL (0.5-4.7); ABSOLUTE MONOCYTES # (MANUAL) 0.2 10^3/uL (0.1-1.4); BASOPHILS % (MANUAL) 0 % (0-2); EOSINOPHILS % (MANUAL) 0 % (0-6); LYMPHOCYTES % (MANUAL) 3 % (13-45); MONOCYTES % (MANUAL) 2 % (3-13); SEGMENTED NEUTROPHILS % (MAN) 94 % (42-78); TOTAL CELLS COUNTED 100
[2020-07-03 12:50] LABS: PLATELET COMMENT ADEQUATE; RBC MORPHOLOGY COMMENT NORMO-CYTIC/CHROMIC
--- NOTE | 2020-07-03 12:54 | RADIOLOGY REPORT (SQ) ---
EXAM DESCRIPTION: CHEST SINGLE VIEW IMAGES COMPLETED DATE/TIME: 07/03/2020 12:45 pm REASON FOR STUDY: sob COMPARISON: CT chest dated 01/02/2020. EXAM PARAMETERS: NUMBER OF VIEWS: One view. TECHNIQUE: Single frontal radiographic view of the chest acquired. RADIATION DOSE: NA LIMITATIONS: None. FINDINGS: LUNGS AND PLEURA: Chronic interstitial prominence. No lobar infiltrate. No large pleural effusion. No pneumothorax. MEDIASTINUM AND HILAR STRUCTURES: No masses. Contour normal. HEART AND VASCULAR STRUCTURES: Heart normal in size. Normal vasculature. BONES: No acute findings. Degenerative changes in the spine. HARDWARE: None in the chest. OTHER: No other significant finding. IMPRESSION: CHRONIC APPEARING INTERSTITIAL CHANGES. NO DEFINITE ACUTE FINDINGS. TECHNICAL DOCUMENTATION: JOB ID: [id number] 2010 [employer]- All Rights Reserved Reading location - IP/workstation name: [email or web address]
[2020-07-03] MEDS ORDERED: ACETAMINOPHEN 325 MG TABLET PO ONE (13:11)
[2020-07-03] MEDS ORDERED: NORMAL SALINE 500 ML IV ONE (13:47)
[2020-07-03 14:10] LABS: ARTERIAL BLOOD BASE EXCESS -1.1 mmol/L; ARTERIAL BLOOD H2CO3 1.03 mmol/L (1.05-1.35); ARTERIAL BLOOD HCO3 22.5 mmol/L (20-24); ARTERIAL BLOOD O2 SATURATION 96.3 % (94-98); ARTERIAL BLOOD PCO2 34.1 mmHg (35-45); ARTERIAL BLOOD PH 7.44 (7.35-7.45); ARTERIAL BLOOD PO2 80.4 mmHg (80-100); ARTERIAL BLOOD TOTAL CO2 23.5 mmol/L (23-27)
[2020-07-03 14:11] LABS: ARTERIAL BLOOD FIO2 75%
[2020-07-03] MEDS ORDERED: ACETAMINOPHEN 325 MG TABLET PO PRN (14:20)
[2020-07-03] MEDS ORDERED: DEXTROSE 40% GEL 15 GM TUBE PO PRN ×2 (14:36)
[2020-07-03] MEDS ORDERED: GLUCAGON,HUMAN RECOMB 1 MG INJ IM PRN (14:36)
[2020-07-03] MEDS ORDERED: DEXTROSE 50%-WATER 25 GM/50 ML DISP.SYRIN IV PRN ×2 (14:36)
[2020-07-03] MEDS: CEFTRIAXONE 1 GM/D5W RTU 1 GM/50 ML RTUPB IV SCH (16:00)
[2020-07-03 16:06] LABS: CREATINE KINASE MB 3.67 ng/mL (<4.55)
--- NOTE | 2020-07-03 16:07 | RADIOLOGY REPORT (SQ) ---
EXAM DESCRIPTION: U/S ABDOMEN LIMITED W/O DOP IMAGES COMPLETED DATE/TIME: 07/03/2020 3:52 pm REASON FOR STUDY: gall stone r/o acute choleystatis COMPARISON: None. TECHNIQUE: Dynamic and static grayscale images acquired of the abdomen and recorded on PACS. Additio nal selected color Doppler and spectral images recorded. Note: Exam does not meet criteria for a complete doppler/duplex scan LIMITATIONS: Study limited due to acoustical interference from fat or from air in the bowel. FINDINGS: PANCREAS: Poorly seen secondary to acoustical interference from fat or from air in the bow el. No visualized masses. Duct normal caliber as seen. LIVER: Echotexture is coarse with increased echogenicity consistent with fatty infiltration. LIVER VASCULATURE: Normal directional flow of the main portal vein and hepatic veins. GALLBLADDER: No stones. Normal wall thickness. No pericholecystic fluid. ULTRASOUND-DETECTED LANDERS'S SIGN: Negative. INTRAHEPATIC DUCTS AND COMMON DUCT: CBD and intrahepatic ducts normal caliber. No filling defects. INFERIOR VENA CAVA: Normal flow. AORTA: No aneurysm. RIGHT KIDNEY: Large cortical cyst, suboptimally visualized. No solid or suspicious masses. No hydro nephrosis. No calcifications. PERITONEAL AND PLEURAL SPACES: No ascites or effusions. OTHER: No other significant finding. IMPRESSION: FATTY INFILTRATION OF THE LIVER. LARGE CORTICAL CYST IN THE RIGHT KIDNEY, SUBOPTIMALLY VISUALIZED. NO OTHER SIGNIFICANT FINDING IN THE VISUALIZED ABDOMEN. TECHNICAL DOCUMENTATION: JOB ID: [id number] 2010 [employer]- All Rights Reserved Reading location - IP/workstation name: [email or web address]
[2020-07-03 16:12] LABS: TROPONIN I 0.146 ng/mL
--- NOTE | 2020-07-03 16:19 | PDOC H&P ---
History of Present Illness Admission Date/PCP: FAITH BA MD Patient complains of: Shortness of the breath History of Present Illness: DELORES LEWIS is a 79 year old male This is a 79-year-old male with a history of the COPD former smoker history of the lung cancer status post lobectomy on the right side history of hypertension's history of the hyperlipidemia and a history of benign prostatic hypertrophy status post TURP came to the emergency department with increasing the shortness of the breath and the fever Patient is according to him diagnosed with the Covid test last PatientIn the EMS patient's Covid test repeat was negative is definitely on 101 fever initial oxygen level was 42 but after adjusting the pulse ox is goes to up to 90+ patient initially put on the BiPAP Patient's ABG all stable Patient's cardiac enzyme was elevated and patient have a definitely of some atherosclerosis on the CT scan we will consult the cardiology Patient's denied any chest pain right now Patient EKG is sinus rhythm Patient recently have a CT of the chest done couple of months back for the lung cancer was all stable We will repeat the Covid test admit the patient in the hospital start on IV antibiotic and steroid nebulizer treatment consult cardiology Patient's LFT is elevated which is all normal last month in the office with a history of the gallstone we will get the ultrasound for the gallbladder Past Medical History Cardiac Medical History: Reports: Hyperlipidema, Hypertension Denies: Myocardial Infarction Pulmonary Medical History: Reports: Chronic Obstructive Pulmonary Disease (COPD) Denies: Asthma Neurological Medical History: Denies: Seizures Endocrine Medical History: Reports: Diabetes Mellitus Type 2 GI Medical History: Reports: Gastroesophageal Reflux Disease Denies: Hepatitis, Hiatal Hernia Musculoskeltal Medical History: Reports: Arthritis Hematology: Denies: Anemia, Sickle Cell Disease Past Surgical History Past Surgical History: Reports: Other Denies: Pacemaker Social History Smoking Status: Former Smoker Electronic Cigarette use?: No Frequency of Alcohol Use: None Hx Recreational Drug Use: No Hx Prescription Drug Abuse: No Family History Family History: Reviewed & Not Pertinent Parental Family History Reviewed: Yes Children Family History Reviewed: Yes Sibling(s) Family History Reviewed.: Yes Medication/Allergy Home Medications: Budesonide/Formoterol Fumarate [Symbicort Hfa 160-4.5 Mcg Inhaler 6 gm] 2 puff IH Q12 05/20/15 Metformin HCl 500 mg PO BID 05/20/15 Metoprolol Succinate [Toprol Xl 50 mg Tab.sr] 50 mg PO BID 05/20/15 Simvastatin [Zocor 40 mg Tablet] 40 mg PO DAILY 05/20/15 Bimatoprost [Lumigan 0.01% Oph Soln 2.5 ml/Bottle] 1 drop OU DAILY 07/03/20 Allergies/Adverse Reactions: No Known Drug Allergies Allergy (Verified 05/30/19 13:52) Review of Systems Constitutional: PRESENT: fatigue, fever(s). ABSENT: chills, headache(s), weight gain, weight loss Eyes: ABSENT: visual disturbances Ears: ABSENT: hearing changes Cardiovascular: PRESENT: dyspnea on exertion. ABSENT: chest pain, edema, orthropnea, palpitations Respiratory: PRESENT: cough. ABSENT: hemoptysis Gastrointestinal: ABSENT: abdominal pain, constipation, diarrhea, hematemesis, hematochezia, nausea, vomiting Genitourinary: ABSENT: dysuria, hematuria Musculoskeletal: ABSENT: joint swelling Integumentary: ABSENT: rash, wounds Neurological: ABSENT: abnormal gait, abnormal speech, confusion, dizziness, focal weakness, syncope Psychiatric: ABSENT: anxiety, depression, homidical ideation, suicidal ideation Endocrine: ABSENT: cold intolerance, heat intolerance, menstrual abnormalities, polydipsia, polyuria Hematologic/Lymphatic: ABSENT: easy bleeding, easy bruising, lymphadenopathy Physical Exam Vital Signs: Temp Pulse Resp BP Pulse Ox 101.5 F H 23 H 154/87 H 91 L 07/03/20 12:12 07/03/20 13:31 07/03/20 13:31 07/03/20 13:31 Intake & Output 07/02/20 07/03/20 07/04/20 06:59 06:59 06:59 Weight 81.647 kg General appearance: PRESENT: no acute distress, well-developed, well-nourished Head exam: PRESENT: atraumatic, normocephalic Eye exam: PRESENT: conjunctiva pink, EOMI, PERRLA. ABSENT: scleral icterus Ear exam: PRESENT: normal external ear exam Mouth exam: PRESENT: moist, tongue midline Neck exam: PRESENT: full ROM. ABSENT: carotid bruit, JVD, lymphadenopathy, thyromegaly Respiratory exam: PRESENT: decreased breath sounds Cardiovascular exam: PRESENT: RRR. ABSENT: diastolic murmur, rubs, systolic murmur Vascular exam: PRESENT: normal capillary refill GI/Abdominal exam: PRESENT: normal bowel sounds, soft. ABSENT: distended, guarding, mass, organolmegaly, rebound, tenderness Rectal exam: PRESENT: deferred Neurological exam: PRESENT: alert, awake, oriented to person, oriented to place, oriented to time, oriented to situation, CN II-XII grossly intact. ABSENT: motor sensory deficit Psychiatric exam: PRESENT: appropriate affect, normal mood. ABSENT: homicidal ideation, suicidal ideation Skin exam: PRESENT: dry, intact, warm. ABSENT: cyanosis, rash Results Laboratory Results: 07/03/20 11:58 07/03/20 11:58 07/03/20 07/03/20 07/03/20 11:58 11:58 13:35 WBC 10.1 RBC 4.52 Hgb 12.8 L Hct 39.0 MCV 86 MCH 28.3 MCHC 32.8 RDW 14.6 H Plt Count 264 Seg Neutrophils % Not Reportable Carbonic Acid 1.03 L HCO3/H2CO3 Ratio 21:1 ABG pH 7.44 ABG pCO2 34.1 L ABG pO2 80.4 ABG HCO3 22.5 ABG O2 Saturation 96.3 ABG Base Excess -1.1 FiO2 75% Sodium 140.3 Potassium 3.9 Chloride 105 Carbon Dioxide 25 Anion Gap 10 BUN 20 Creatinine 1.23 Est GFR ( Amer) > 60 Glucose 175 H Calcium 8.4 Total Bilirubin 0.7 AST 103 H Alkaline Phosphatase 87 Total Protein 7.8 Albumin 3.6 07/03/20 11:58 Troponin I 0.082 Impressions: Chest X-Ray 07/03/20 12:03 IMPRESSION: CHRONIC APPEARING INTERSTITIAL CHANGES. NO DEFINITE ACUTE FINDINGS. Assessment & Plan - Diagnosis (1) COVID-19 Is this a current diagnosis for this admission?: Yes Plan: With the recent diagnosed with the COVID-19 we will repeat the COVID-19 test start the patient on the steroids antibiotics and antiviral drugs (2) Elevated troponin Is this a current diagnosis for this admission?: Yes Plan: Will rule out acute coronary syndromes consult the cardiology (3) Lung cancer Qualifiers: Laterality: right Is this a current diagnosis for this admission?: Yes Plan: We will get the CT of the chest consult oncology if is positive lesion (4) Respiratory failure Qualifiers: Chronicity: acute Is this a current diagnosis for this admission?: Yes Plan: Will continues the BiPAP get the CT angiograms to rule out any PE underlying other conditions nebulizer treatments (5) Type 2 diabetes mellitus Qualifiers: Diabetes mellitus manager long term care insulin use: without manager long term care use Is this a current diagnosis for this admission?: Yes Plan: We will continue sliding-scale (6) Elevated LFTs Is this a current diagnosis for this admission?: Yes Plan: With a history of the gallstones with elevated LFT we will get the ultrasound to rule out any acute cholecystitis (7) COPD (chronic obstructive pulmonary disease) Qualifiers: COPD type: COPD with acute exacerbation Qualified Code(s): J44.1 - Chronic obstructive pulmonary disease with (acute) exacerbation Is this a current diagnosis for this admission?: Yes Plan: Continues on nebulizer treatments start the patient on a steroid (8) Fever Qualifiers: Fever type: unspecified Qualified Code(s): R50.9 - Fever, unspecified Is this a current diagnosis for this admission?: Yes Plan: We will get the blood culture urine culture we will get the sputum culture start the patient on IV Rocephin and Zithromax (9) Sleep apnea Qualifiers: Sleep apnea type: unspecified type Qualified Code(s): G47.30 - Sleep apnea, unspecified Is this a current diagnosis for this admission?: Yes - Time Time Spent: 50 to 70 Minutes Critical Time spent with patient: 25-34 minutes Medications reviewed and adjusted accordingly: Yes Anticipated Discharge Disposition: Home, Self Care Anticipated Discharge Timeframe: within 72 hours - Inpatient Certification Based on my medical assessment, after consideration of the patient's c omorbidities, presenting symptoms, or acuity I expect that the services needed warrant INPATIENT care.: Yes I certify that my determination is in accordance with my understanding of Medicare's requirements for reasonable and necessary INPATIENT services [42 CFR 412.3e].: Yes Medical Necessity: Failure to Improve With Outpatient Therapy, Significant Comorbidiites Make Outpatient Treatment Too Risky, Need For IV Fluids, Need for IV Antibiotics Post Hospital Care: D/C Clerk Supervisor Documentation - Plan Summary Plan Summary: Admit the patient in IMCU see other orders discussed with the regarding the patient's current conditions
[2020-07-03] MEDS: ENOXAPARIN SODIUM INJ 40 MG/0.4 ML DISP.SYRIN SUBCUT SCH (17:10)
[2020-07-03] MEDS: INSULIN LISPRO 100 UNIT/ML 3 ML VIAL SUBCUT SCH ×2 (17:10→22:35)
--- NOTE | 2020-07-03 17:59 | EKG REPORT ---
SEVERITY:- ABNORMAL ECG - SINUS RHYTHM NONSPECIFIC T ABNORMALITIES, ANT-LAT LEADS BORDERLINE PROLONGED QT INTERVAL : Confirmed by: Brina Freire 03-Jul-2020 17:59:06
--- NOTE | 2020-07-03 18:01 | EKG REPORT ---
SEVERITY:- ABNORMAL ECG - SINUS RHYTHM LVH WITH SECONDARY REPOLARIZATION ABNORMALITY BORDERLINE PROLONGED QT INTERVAL : Confirmed by: Brina Freire 03-Jul-2020 17:59:15
--- NOTE | 2020-07-03 19:23 | RADIOLOGY REPORT (SQ) ---
EXAM DESCRIPTION: CTA CHEST IMAGES COMPLETED DATE/TIME: 07/03/2020 7:01 pm REASON FOR STUDY: sob COMPARISON: 01/02/2020 TECHNIQUE: CT scan of the chest performed using helical scanning technique with dynamic intravenous contrast injection. Images reviewed with lung, soft tissue and bone windows. Reconstructed coronal and sagittal MPR images reviewed. Additional 3 dimensional post-processing performed to develop Maximal Intensity Projection images (MO P). All images stored on PACS. All CT scanners at this facility use dose modulation, iterative reconstruction, and/or weight based d osing when appropriate to reduce radiation dose to as low as reasonably achievable (ALARA). [facility]: Dose Right [facility]: CareDose [facility]: Dose Right [facility]: Teradose 4D [facility]: TriNovus CONTRAST TYPE AND DOSE: contrast/concentration: Isovue 350.00 mmol/ml; Total Contrast Delivered: 61. 0 ml; Total Saline Delivered: 56.0 ml Contrast bolus adequate for pulmonary arteries and aorta. RENAL FUNCTION: BUN 20 creatinine 1.23 RADIATION DOSE: CT Rad equipment meets quality standard of care and radiation dose reduction techniq ues were employed. CTDIvol: 13.2 - 25.7 mGy. DLP: 956 mGy-cm. . LIMITATIONS: None. FINDINGS: LUNGS AND PLEURA: Mild centrilobular emphysema. Extensive ground-glass opacification in b oth lungs. No pulmonary masses. Mild bronchiectasis. Pleural/parenchymal scarring in the lung base s. AORTA AND GREAT VESSELS: No aneurysm. No dissection. HEART: No pericardial effusion. Cardiomegaly. Moderate coronary artery calcifications. PULMONARY ARTERIES: No emboli visualized in the main pulmonary arteries or the segmental branches. HILAR AND MEDIASTINAL STRUCTURES: Mild mediastinal adenopathy. HARDWARE: None in the chest. UPPER ABDOMEN: The liver is diffusely hypoattenuating. Large upper pole right renal cyst. THYROID AND OTHER SOFT TISSUES: No masses. No adenopathy. BONES: No acute or significant finding. 3D MIPS: Confirm above findings. OTHER: No other significant finding. IMPRESSION: 1. No pulmonary emboli. No aortic aneurysm or dissection. 2. Mild centrilobular emphysema. 3. Ground-glass opacification in both lungs. May suggest chronic interstitial changes, interstitial edema, or atypical infectious/ inflammatory process. 4. Cardiomegaly. Cannot exclude mild pulmonary edema. 5. Hepatic steatosis. COMMENT: Quality ID # [id number]: Final reports with documentation of one or more dose reduction techniques (e.g., Automated exposure control, adjustment of the mA and/or kV according to patient size, use of iterative reconstruction technique) TECHNICAL DOCUMENTATION: JOB ID: [id number] 2010 [employer]- All Rights Reserved Reading location - IP/workstation name: [email or web address]
[2020-07-03 19:50] LABS: APPEARANCE,URINE SLIGHTLY-CLOUDY; BILIRUBIN,URINE NEGATIVE (NEGATIVE); COLOR,URINE YELLOW; GLUCOSE, URINE NEGATIVE (NEGATIVE); KETONES,URINE TRACE mg/dL (NEGATIVE); LEUKOCYTE ESTERASE,URINE NEGATIVE (NEGATIVE); NITRITE,URINE NEGATIVE (NEGATIVE); PROTEIN,URINE 100 mg/dL (NEGATIVE); URINE SPECIFIC GRAVITY 1.028; UROBILINOGEN,URINE NEGATIVE mg/dL (<2.0)
[2020-07-03] MEDS: IPRATROPIUM/ALBUTEROL 0.5-2.5 MG/3 ML AMPUL NEB SCH (20:03)
--- NOTE | 2020-07-03 20:05 | XCELERA REPORT ---
[address] [address] Transthoracic Echocardiogram Report Name: DELORES LEWIS Age: 79 yrs Gender: Male : 1940 Patient Status: Inpatient Patient Location: [address] Study Date: 07/03/2020 06:04 PM Height: 71 in Weight: 180 lb BSA: 2.0 m2 Procedure: A complete two-dimensional transthoracic echocardiogram was performed (2D, M-mode, spectral and color flow Doppler). The study was technically difficult with many images being suboptimal in quality. Reason For Study: SOB Ordering Physician: LIZET CUETO Performed By: Patricia Harman Interpretation Summary The left ventricle is grossly normal size. There is mild concentric left ventricular hypertrophy. Left ventricular systolic function is normal. The Ejection Fraction estimate is 60-65%. Doppler measurements suggest impaired left ventricular relaxation, which is associated with grade I/IV or mild diastolic dysfunction. Regional wall motion abnormalities cannot be excluded due to limited visualization. Mild TR. Mildly dilated aortic root at 3.9 cm. Small, hemodynamically insignificant anterior pericardial effusion. No prior studies for comparison. MMode/2D Measurements & Calculations RVDd: 2.8 cm LVIDd: 5.1 cm FS: 35.5 % Ao root diam: 3.9 cm IVSd: 1.5 cm LVIDs: 3.3 cm EDV(Teich): Ao root area: 126.1 ml LVPWd: 1.1 cm 11.7 cm2 ESV(Teich): LA dimension: 3.5 cm 44.6 ml EF(Teich): 64.6 % LVLd ap4: 6.8 cm SV(MOD-sp4): EDV(MOD-sp4): 53.0 ml 79.0 ml LVLs ap4: 5.6 cm ESV(MOD-sp4): 26.0 ml EF(MOD-sp4): 67.1 % Doppler Measurements & Calculations MV E max alix: MV P1/2t max alix: Ao V2 max: LV V1 max P.6 cm/sec 76.0 cm/sec 119.7 cm/sec 3.9 mmHg MV A max alix: MV P1/2t: 62.5 msec Ao max P.7 mmHg LV V1 max: 87.1 cm/sec 99.2 cm/sec MVA(P1/2t): 3.5 cm2 MV E/A: 0.67 MV dec slope: 356.1 cm/sec2 MV dec time: 0.21 sec PA V2 max: TR max alix: MV P1/2t-pr_phl: 86.0 cm/sec 215.6 cm/sec 62.5 msec PA max PG: TR max P.6 mmHg 3.0 mmHg Left Ventricle The left ventricle is grossly normal size. There is mild concentric left ventricular hypertrophy. Left ventricular systolic function is normal. The Ejection Fraction estimate is 60-65%. Doppler measurements suggest impaired left ventricular relaxation, which is associated with grade I/IV or mild diastolic dysfunction. Regional wall motion abnormalities cannot be excluded due to limited visualization. Right Ventricle The right ventricle is grossly normal size. The right ventricular systolic function is normal. Atria The right atrium is normal. The left atrial size is normal. Interarterial septum not well visualized and not well dopplered. Cannot comment on ASD/PFO presence. Mitral Valve There is mild mitral leaflet calcification. There is no evidence of mitral valve prolapse. There is no mitral valve stenosis. There is no mitral regurgitation noted. Aortic Valve The aortic valve is grossly normal. There is no aortic valvular vegetation. There is no aortic valve stenosis. No aortic regurgitation is present. Tricuspid Valve The tricuspid valve is not well visualized, but is grossly normal. There is no tricuspid valve prolapse. There is no tricuspid stenosis. There is a mild amount of tricuspid regurgitation. Pulmonic Valve The pulmonic valve is not well seen, but is grossly normal. There is no vegetation on the pulmonic valve. There is no pulmonic valvular stenosis. There is no pulmonic valvular regurgitation. Great Vessels The aortic root is mildly dilated. The inferior vena cava was not well visualized. Effusions Small, hemodynamically insignificant anterior pericardial effusion. There is no pleural effusion. : LIZET CUETO Antonio
[2020-07-03] MEDS ORDERED: SIMVASTATIN 40 MG TABLET PO SCH (22:00)
[2020-07-03] MEDS ORDERED: DEXAMETHASONE SOD PHOS INJ 10 MG/1 ML VIAL IV SCH (22:00)
[2020-07-03] MEDS: FAMOTIDINE INJ/PF 20 MG/2 ML SDV IV SCH (22:34)
[2020-07-03] MEDS: METOPROLOL SUCCINATE 50 MG TAB.SR.24H PO SCH (22:34)
[2020-07-03] MEDS: DEXAMETHASONE SOD PHOSPHATE INJ 4 MG/1 ML VIAL IV SCH (22:35)
[2020-07-03] MEDS: LATANOPROST 0.005% OPH SOLN 2.5 ML OU SCH (22:36)
[2020-07-03 22:45] LABS: CREATINE KINASE MB 4.05 ng/mL (<4.55)
[2020-07-03 22:49] LABS: TROPONIN I 0.079 ng/mL
[2020-07-04 05:52] LABS: ABSOLUTE LYMPHOCYTES (AUTO) 0.6 10^3/uL (0.5-4.7); ABSOLUTE MONOCYTES (AUTO) 0.4 10^3/uL (0.1-1.4); ABSOLUTE NEUT (AUTO) 5.7 10^3/uL (1.7-8.2); BASOPHILS % (AUTO) 0.4 % (0-2); EOSINOPHILS % (AUTO) 0.1 % (0-6); HEMOGLOBIN 12.3 g/dL (13.5-17.0); LYMPHOCYTES % (AUTO) 8.2 % (13-45); MEAN CORPUSCULAR HEMOGLOBIN 28.4 pg (27.0-33.4); MEAN CORPUSCULAR HGB CONC 33.3 g/dL (32.0-36.0); MEAN CORPUSCULAR VOLUME 85 fl (80-97); MONOCYTES % (AUTO) 6.1 % (3-13); PLATELET COUNT 269 10^3/uL (150-450); RED BLOOD COUNT 4.34 10^6/uL (4.35-5.55); RED CELL DISTRIBUTION WIDTH 14.2 % (11.5-14.0); SEGMENTED NEUTROPHILS % (AUTO) 85.2 % (42-78); TOTAL CELLS COUNTED % (AUTO) 100 %; WHITE BLOOD COUNT 6.7 10^3/uL (4.0-10.5)
[2020-07-04 06:08] LABS: ALKALINE PHOSPHATASE 75 U/L (38-126); ANION GAP 9 (5-19); ASPARTATE AMINO TRANSFERASE 82 U/L (17-59); BILIRUBIN,DIRECT 0.3 mg/dL (0.0-0.4); BILIRUBIN,TOTAL 0.6 mg/dL (0.2-1.3); BLOOD UREA NITROGEN 24 mg/dL (7-20); CALCIUM 8.1 mg/dL (8.4-10.2); CARBON DIOXIDE 24 mmol/L (22-30); CHLORIDE 107 mmol/L (98-107); GLUCOSE 180 mg/dL (75-110); POTASSIUM 4.8 mmol/L (3.6-5.0); TOTAL PROTEIN 6.7 g/dL (6.3-8.2)
[2020-07-04 06:20] LABS: CREATINE KINASE MB 3.54 ng/mL (<4.55)
[2020-07-04 06:32] LABS: TROPONIN I 0.063 ng/mL
--- NOTE | 2020-07-04 07:46 | PDOC CONSULTATION ---
Consultation Consult Date: 07/04/20 Attending physician:: KADY PATEL Provider Consulted: LIZET JIMENEZ Consult reason:: Positive troponin History of Present Illness Admission Date/PCP: 07/03/20 15:48 FAITH BA MD History of Present Illness: DELORES LEWIS is a 79 year old male with history of hypertension, hyperlipidemia, BPH status post TURP, COPD, lung cancer status post right lobectomy several years ago, Covid positive as of last week who is c onsulted to our service for further evaluation of mildly elevated troponin. The patient was diagnosed with coronavirus approximately 1 week ago and had been doing well until yesterday when he became acutely short of breath and called EMS. Per chart review, the patient was found to have a very low pulse oximetry by EMS and was treated appropriately. In the emergency room his oxygen saturation came up after he was placed on BiPAP. He was also febrile but denied angina as well as angina equivalent symptoms. The patient had an uneventful night and is currently on BiPAP. Physical exam on 07/04/2020: GENERAL: Pleasant and conversational. Oriented x3 with normal mood. Not in acute distress. Well groomed and well developed. HEENT: Normocephalic, atraumatic. Pupils equal. Sclerae anicteric. Oropharynx moist. NECK: No JVD. No carotid bruits. LUNGS: Clear to auscultation bilaterally. Normal respiratory effort without the use of accessory muscles or intercostal retractions. CARDIOVASCULAR: Regular rate and rhythm, normal S1 and S2 without murmurs, rubs, or gallops. PMI not displaced. ABDOMEN: No masses or tenderness to palpation. No bruit. No splenomegaly or hepatomegaly. No abdominal aorta bruit noted. EXTREMITIES: No edema, no cyanosis, no clubbing. +2 pulses femoral and pedal pulses bilaterally. SKIN: No lesions or rashes. MUSCULOSKELETAL: No chest tenderness to palpation. NEUROLOGIC: Nonfocal. No gross sensory or motor deficits bilateral upper or low er extremities. Cardiac studies: Echocardiogram at [facility] on 07/03/2020: -Normal LV systolic function. -EF 60 to 65%. -Mild concentric LVH. -Grade 1 diastolic dysfunction. -Cannot assess for regional wall motion abnormalities due to the poor quality of the study. -Mild TR. -Mildly dilated aortic root at 3.9 cm. -Small, hemodynamically insignificant anterior pericardial effusion. Past Medical History Cardiac Medical History: Reports: Hyperlipidema, Hypertension Denies: Myocardial Infarction Pulmonary Medical History: Reports: Chronic Obstructive Pulmonary Disease (COPD) Denies: Asthma Neurological Medical History: Denies: Seizures Endocrine Medical History: Reports: Diabetes Mellitus Type 2 GI Medical History: Reports: Gastroesophageal Reflux Disease Denies: Hepatitis, Hiatal Hernia Musculoskeltal Medical History: Reports: Arthritis Psychiatric Medical History: Denies: Depression Hematology: Denies: Anemia, Sickle Cell Disease Past Surgical History Past Surgical History: Reports: Other Denies: Pacemaker Social History Lives with: Family Smoking Status: Former Smoker Electronic Cigarette use?: No Frequency of Alcohol Use: None Hx Recreational Drug Use: No Drugs: None Hx Prescription Drug Abuse: No Family History Family History: Reviewed & Not Pertinent Parental Family History Reviewed: Yes Children Family History Reviewed: Yes Sibling(s) Family History Reviewed.: Yes Medication/Allergy Home Medications: Budesonide/Formoterol Fumarate [Symbicort Hfa 160-4.5 Mcg Inhaler 6 gm] 2 puff IH Q12 05/20/15 Metformin HCl 500 mg PO BID 05/20/15 Metoprolol Succinate [Toprol Xl 50 mg Tab.sr] 50 mg PO BID 05/20/15 Simvastatin [Zocor 40 mg Tablet] 40 mg PO DAILY 05/20/15 Bimatoprost [Lumigan 0.01% Oph Soln 2.5 ml/Bottle] 1 drop OU DAILY 07/03/20 Allergies/Adverse Reactions: No Known Drug Allergies Allergy (Verified 05/30/19 13:52) Physical Exam Vital Signs: Temp Pulse Resp BP Pulse Ox 98.1 F 63 26 H 141/74 H 95 07/04/20 03:35 07/04/20 07:00 07/04/20 04:50 07/04/20 03:35 07/04/20 04:50 Intake & Output 07/03/20 07/04/20 07/05/20 06:59 06:59 06:59 Intake Total 810 Output Total 125 Balance 685 Weight 81.2 kg Results Laboratory Results: 07/04/20 04:18 07/04/20 04:18 07/03/20 07/03/20 07/03/20 11:58 11:58 13:35 WBC 10.1 RBC 4.52 Hgb 12.8 L Hct 39.0 MCV 86 MCH 28.3 MCHC 32.8 RDW 14.6 H Plt Count 264 Seg Neutrophils % Not Reportable Carbonic Acid 1.03 L HCO3/H2CO3 Ratio 21:1 ABG pH 7.44 ABG pCO2 34.1 L ABG pO2 80.4 ABG HCO3 22.5 ABG O2 Saturation 96.3 ABG Base Excess -1.1 FiO2 75% Sodium 140.3 Potassium 3.9 Chloride 105 Carbon Dioxide 25 Anion Gap 10 BUN 20 Creatinine 1.23 Est GFR ( Amer) > 60 Glucose 175 H Calcium 8.4 Magnesium Total Bilirubin 0.7 AST 103 H Alkaline Phosphatase 87 Total Protein 7.8 Albumin 3.6 Urine Color Urine Appearance Urine pH Ur Specific We[place] Urine Protein Urine Glucose (UA) Urine Ketones Urine Blood Urine Nitrite Ur Leukocyte Esterase Urine WBC (Auto) Urine RBC (Auto) 07/03/20 07/04/20 07/04/20 19:16 04:18 04:18 WBC 6.7 RBC 4.34 L Hgb 12.3 L Hct 37.0 L MCV 85 MCH 28.4 MCHC 33.3 RDW 14.2 H Plt Count 269 Seg Neutrophils % 85.2 H Carbonic Acid HCO3/H2CO3 Ratio ABG pH ABG pCO2 ABG pO2 ABG HCO3 ABG O2 Saturation ABG Base Excess FiO2 Sodium 140.0 Potassium 4.8 Chloride 107 Carbon Dioxide 24 Anion Gap 9 BUN 24 H Creatinine 0.98 Est GFR ( Amer) > 60 Glucose 180 H Calcium 8.1 L Magnesium 3.0 H Total Bilirubin 0.6 AST 82 H Alkaline Phosphatase 75 Total Protein 6.7 Albumin 3.0 L Urine Color YELLOW Urine Appearance SLIGHTLY-CLOUDY Urine pH 5.0 Ur Specific [place] 1.028 Urine Protein 100 H Urine Glucose (UA) NEGATIVE Urine Ketones TRACE H Urine Blood MODERATE H Urine Nitrite NEGATIVE Ur Leukocyte Esterase NEGATIVE Urine WBC (Auto) 4 Urine RBC (Auto) 1 07/03/20 07/03/20 07/03/20 11:58 15:20 15:20 Creatine Kinase 576 H CK-MB (CK-2) 3.67 Troponin I 0.082 0.146 NT-Pro-B Natriuret Pep 1490 H 07/03/20 07/03/20 07/04/20 22:02 22:02 04:18 Creatine Kinase 552 H 521 H CK-MB (CK-2) 4.05 Troponin I 0.079 NT-Pro-B Natriuret Pep 07/04/20 04:18 Creatine Kinase CK-MB (CK-2) 3.54 Troponin I 0.063 NT-Pro-B Natriuret Pep Impressions: Abdomen Ultrasound 07/03/20 00:00 IMPRESSION: FATTY INFILTRATION OF THE LIVER. LARGE CORTICAL CYST IN THE RIGHT KIDNEY, SUBOPTIMALLY VISUALIZED. NO OTHER SIGNIFICANT FINDING IN THE VISUALIZED ABDOMEN. Chest X-Ray 07/03/20 12:03 IMPRESSION: CHRONIC APPEARING INTERSTITIAL CHANGES. NO DEFINITE ACUTE FINDINGS. Chest/Abdomen CTA 07/03/20 13:52 IMPRESSION: 1. No pulmonary emboli. No aortic aneurysm or dissection. 2. Mild centrilobular emphysema. 3. Ground-glass opacification in both lungs. May suggest chronic interstitial changes, interstitial edema, or atypical infectious/ inflammatory process. 4. Cardiomegaly. Cannot exclude mild pulmonary edema. 5. Hepatic steatosis. 07/04/20 04:18 07/04/20 04:18 MCV 85 fl (80-97) 07/04/20 04:18 MCH 28.4 pg (27.0-33.4) 07/04/20 04:18 MCHC 33.3 g/dL (32.0-36.0) 07/04/20 04:18 RDW 14.2 % (11.5-14.0) H 07/04/20 04:18 Seg Neutrophils % 85.2 % (42-78) H 07/04/20 04:18 Carbonic Acid 1.03 mmol/L (1.05-1.35) L 07/03/20 13:35 HCO3/H2CO3 Ratio 21:1 07/03/20 13:35 ABG pH 7.44 (7.35-7.45) 07/03/20 13:35 ABG pCO2 34.1 mmHg (35-45) L 07/03/20 13:35 ABG pO2 80.4 mmHg (80-100) 07/03/20 13:35 ABG HCO3 22.5 mmol/L (20-24) 07/03/20 13:35 ABG O2 Saturation 96.3 % (94-98) 07/03/20 13:35 ABG Base Excess -1.1 mmol/L 07/03/20 13:35 FiO2 75% 07/03/20 13:35 Chloride 107 mmol/L (98-107) 07/04/20 04:18 Carbon Dioxide 24 mmol/L (22-30) 07/04/20 04:18 Anion Gap 9 (5-19) 07/04/20 04:18 Est GFR ( Amer) > 60 (>60) 07/04/20 04:18 Glucose 180 mg/dL (75-110) H 07/04/20 04:18 Calcium 8.1 mg/dL (8.4-10.2) L 07/04/20 04:18 Magnesium 3.0 mg/dL (1.6-2.3) H 07/04/20 04:18 Total Bilirubin 0.6 mg/dL (0.2-1.3) 07/04/20 04:18 AST 82 U/L (17-59) H 07/04/20 04:18 Alkaline Phosphatase 75 U/L (38-126) 07/04/20 04:18 Total Protein 6.7 g/dL (6.3-8.2) 07/04/20 04:18 Albumin 3.0 g/dL (3.5-5.0) L 07/04/20 04:18 Urine Color YELLOW 07/03/20 19:16 Urine Appearance SLIGHTLY-CLOUDY 07/03/20 19:16 Urine pH 5.0 (5.0-9.0) 07/03/20 19:16 Ur Specific [place] 1.028 07/03/20 19:16 Urine Protein 100 mg/dL (NEGATIVE) H 07/03/20 19:16 Urine Glucose (UA) NEGATIVE mg/dL (NEGATIVE) 07/03/20 19:16 Urine Ketones TRACE mg/dL (NEGATIVE) H 07/03/20 19:16 Urine Blood MODERATE (NEGATIVE) H 07/03/20 19:16 Urine Nitrite NEGATIVE (NEGATIVE) 07/03/20 19:16 Ur Leukocyte Esterase NEGATIVE (NEGATIVE) 07/03/20 19:16 Urine WBC (Auto) 4 /HPF 07/03/20 19:16 Urine RBC (Auto) 1 /HPF 07/03/20 19:16 07/03/20 07/03/20 07/03/20 11:58 15:20 15:20 Creatine Kinase 576 H CK-MB (CK-2) 3.67 Troponin I 0.082 0.146 NT-Pro-B Natriuret Pep 1490 H 07/03/20 07/03/20 07/04/20 22:02 22:02 04:18 Creatine Kinase 552 H 521 H CK-MB (CK-2) 4.05 Troponin I 0.079 NT-Pro-B Natriuret Pep 07/04/20 04:18 Creatine Kinase CK-MB (CK-2) 3.54 Troponin I 0.063 NT-Pro-B Natriuret Pep Current Medication List Generic Name Dose Route Start Last Admin Trade Name Freq PRN Reason Stop Dose Admin Acetaminophen 650 mg 07/03/20 14:20 Acetaminophen 325 Mg Tablet PO 08/02/20 14:19 Q4HP PRN FOR PAIN OR TEMP Albuterol/Ipratropium 3 ml 07/03/20 20:00 07/03/20 20:03 Ipratropium/Albuterol 0.5-2.5 Mg/3 Ml Ampul NEB 08/02/20 19:59 3 ml [id number] MONET Administration Dexamethasone Sodium Phosphate 3 mg 07/03/20 22:00 07/03/20 22:35 Dexamethasone Sod Phosphate Inj 4 Mg/1 Ml Vial IV 08/02/20 21:59 3 mg Q12 MONET Administration Dextrose 12.5 gm 07/03/20 14:36 Dextrose 50%-Water 25 Gm/50 Ml Disp.Syrin IV 08/02/20 14:35 PRN PRN FOR BG 50-69 IN ALERT PATIENT Protocol Dextrose 25 gm 07/03/20 14:36 Dextrose 50%-Water 25 Gm/50 Ml Disp.Syrin IV 08/02/20 14:35 PRN PRN PER PROTOCOL Protocol Enoxaparin Sodium 40 mg 07/03/20 16:00 07/03/20 17:10 Enoxaparin Sodium Inj 40 Mg/0.4 Ml Disp.Syrin SUBCUT 08/02/20 15:59 40 mg DAILY MONET Administration Famotidine 20 mg 07/03/20 22:00 07/03/20 22:34 Famotidine Inj/Pf 20 Mg/2 Ml Sdv IV 08/02/20 21:59 20 mg Q12 MONET Administration Glucagon 1 mg 07/03/20 14:36 Glucagon,Human Recomb 1 Mg Inj IM 08/02/20 14:35 PRN PRN Evaluate for BG < 70 Protocol Glucose 15 gm 07/03/20 14:36 Dextrose 40% Gel 15 Gm Tube PO 08/02/20 14:35 PRN PRN FOR BG 50-69 IN ALERT PATIENT Protocol Glucose 30 gm 07/03/20 14:36 Dextrose 40% Gel 15 Gm Tube PO 08/02/20 14:35 PRN PRN FOR BG < 50 IN ALERT PATIENT Protocol Ceftriaxone Sodium/Dextrose 1 gm in 50 mls @ 100 mls/hr 07/03/20 15:30 07/03/20 16:30 Rocephin Rtu 1 Gm/D5w 50 Ml Premix IV 07/10/20 15:29 Infused QPM MONET Infusion Azithromycin 250 mg/ Dextrose 250 mls @ 250 mls/hr 07/04/20 10:00 IV 07/11/20 09:59 DAILY MONET Insulin Human Lispro 0 - 12 unit 07/03/20 16:00 07/03/20 22:35 Insulin Lispro 100 Unit/Ml 3 Ml Vial SUBCUT 08/02/20 15:59 2 unit ACHS MONET Administration Protocol Latanoprost 1 drop 07/03/20 22:00 07/03/20 22:36 Latanoprost 0.005% Oph Soln 2.5 Ml OU 08/02/20 21:59 1 drop QHS MONET Administration Metoprolol Succinate 50 mg 07/03/20 22:00 07/03/20 22:34 Metoprolol Succinate 50 Mg Tab.Sr.24h PO 08/02/20 21:59 50 mg Q12 MONET Administration Discontinued Medications Generic Name Dose Route Start Last Admin Trade Name Raven PRN Reason Stop Dose Admin Acetaminophen 975 mg 07/03/20 13:11 07/03/20 13:27 Acetaminophen 325 Mg Tablet PO 07/03/20 13:12 975 mg NOW ONE Administration Azithromycin 500 mg 07/03/20 12:05 07/03/20 13:00 Azithromycin Inj 500 Mg Vial IV 07/03/20 12:06 500 mg IVBAG (ED) ONE Administration Dexamethasone Sodium Phosphate 10 mg 07/03/20 12:04 07/03/20 12:59 Dexamethasone Sod Phos Inj 10 Mg/1 Ml Vial IV 07/03/20 12:05 10 mg NOW ONE Administration Famotidine 20 mg 07/03/20 12:04 07/03/20 13:00 Famotidine Inj/Pf 20 Mg/2 Ml Sdv IV 07/03/20 12:05 20 mg NOW ONE Administration Sodium Chloride 500 mls @ 0 mls/hr 07/03/20 13:47 07/03/20 15:01 Nacl 0.9% 500 Ml Iv Soln IV 07/03/20 13:48 Infused NOW ONE Infusion Wide Open Azithromycin 250 mg/ Dextrose 250 mls @ 250 mls/hr 07/04/20 10:00 IV 07/11/20 09:59 DAILY MONET Simvastatin 40 mg 07/03/20 22:00 Simvastatin 40 Mg Tablet PO 08/02/20 21:59 QHS [facility] Assessment & Plan - Diagnosis (1) Elevated troponin Is this a current diagnosis for this admission?: Yes Plan: The patient has remained stable from a cardiovascular standpoint overnight and without cardiac ischemic symptoms. His troponin peaked at 0.146 and is already trending down. He does have moderate atherosclerosis in the coronary arteries on CT angiogram of the chest however he denies ischemic symptoms. Whether his very mildly elevated cardiac troponin is secondary to a type II HI from his hypoxemia versus secondary to COVID-19 infection is unknown at this point. Given the fact that the patient does not have cardiac ischemic symptoms and that COVID-19 can frequently cause mildly elevations of troponin we will continue with the current regimen and defer any cardiac ischemic work-up at this time. Recommendations: -May add a baby aspirin daily. -No further ischemic cardiac work-up at this point. -Continue with cardiac telemetry. -Continue COVID-19 treatment. -Cardiology does not have further recommendations therefore we will sign off the case. Please reconsult if clinically indicated. (2) COVID-19 Is this a current diagnosis for this admission?: Yes Plan: Further management and recommendations per hospitalist team.
[2020-07-04] MEDS: IPRATROPIUM/ALBUTEROL 0.5-2.5 MG/3 ML AMPUL NEB SCH ×3 (08:23→20:42)
[2020-07-04] MEDS: INSULIN LISPRO 100 UNIT/ML 3 ML VIAL SUBCUT SCH ×4 (08:54→21:41)
--- NOTE | 2020-07-04 09:16 | PDOC PROGRESS REPORT ---
Subjective Date:: 07/04/20 Subjective:: Patient is currently doing fair Denied any chest pain no short of breath Patient is currently on a BiPAP Patient seen by the cardiology echocardiogram is all stable no need for follow- up cardiac interventions Patient CT angiogram did not show any PE no sign of any malignancy Reason For Visit: SOB/COVID/LUNG CANCER Physical Exam Vital Signs: Temp Pulse Resp BP Pulse Ox 98.3 F 74 14 156/85 H 97 07/04/20 08:08 07/04/20 08:08 07/04/20 08:08 07/04/20 08:08 07/04/20 08:08 Intake & Output 07/03/20 07/04/20 07/05/20 06:59 06:59 06:59 Intake Total 810 Output Total 125 Balance 685 Weight 81.2 kg General appearance: PRESENT: no acute distress Eye exam: PRESENT: PERRLA Mouth exam: PRESENT: neck supple Respiratory exam: PRESENT: clear to auscultation chad GI/Abdominal exam: PRESENT: normal bowel sounds Neurological exam: PRESENT: alert, awake, oriented to person, oriented to place, oriented to time, oriented to situation Results Laboratory Results: 07/04/20 04:18 07/04/20 04:18 07/03/20 07/03/20 07/03/20 11:58 11:58 13:35 WBC 10.1 RBC 4.52 Hgb 12.8 L Hct 39.0 MCV 86 MCH 28.3 MCHC 32.8 RDW 14.6 H Plt Count 264 Seg Neutrophils % Not Reportable Carbonic Acid 1.03 L HCO3/H2CO3 Ratio 21:1 ABG pH 7.44 ABG pCO2 34.1 L ABG pO2 80.4 ABG HCO3 22.5 ABG O2 Saturation 96.3 ABG Base Excess -1.1 FiO2 75% Sodium 140.3 Potassium 3.9 Chloride 105 Carbon Dioxide 25 Anion Gap 10 BUN 20 Creatinine 1.23 Est GFR ( Amer) > 60 Glucose 175 H Calcium 8.4 Magnesium Total Bilirubin 0.7 AST 103 H Alkaline Phosphatase 87 Total Protein 7.8 Albumin 3.6 Urine Color Urine Appearance Urine pH Ur Specific [place] Urine Protein Urine Glucose (UA) Urine Ketones Urine Blood Urine Nitrite Ur Leukocyte Esterase Urine WBC (Auto) Urine RBC (Auto) 07/03/20 07/04/20 07/04/20 19:16 04:18 04:18 WBC 6.7 RBC 4.34 L Hgb 12.3 L Hct 37.0 L MCV 85 MCH 28.4 MCHC 33.3 RDW 14.2 H Plt Count 269 Seg Neutrophils % 85.2 H Carbonic Acid HCO3/H2CO3 Ratio ABG pH ABG pCO2 ABG pO2 ABG HCO3 ABG O2 Saturation ABG Base Excess FiO2 Sodium 140.0 Potassium 4.8 Chloride 107 Carbon Dioxide 24 Anion Gap 9 BUN 24 H Creatinine 0.98 Est GFR ( Amer) > 60 Glucose 180 H Calcium 8.1 L Magnesium 3.0 H Total Bilirubin 0.6 AST 82 H Alkaline Phosphatase 75 Total Protein 6.7 Albumin 3.0 L Urine Color YELLOW Urine Appearance SLIGHTLY-CLOUDY Urine pH 5.0 Ur Specific [place] 1.028 Urine Protein 100 H Urine Glucose (UA) NEGATIVE Urine Ketones TRACE H Urine Blood MODERATE H Urine Nitrite NEGATIVE Ur Leukocyte Esterase NEGATIVE Urine WBC (Auto) 4 Urine RBC (Auto) 1 07/03/20 07/03/20 07/03/20 11:58 15:20 15:20 Creatine Kinase 576 H CK-MB (CK-2) 3.67 Troponin I 0.082 0.146 NT-Pro-B Natriuret Pep 1490 H 07/03/20 07/03/20 07/04/20 22:02 22:02 04:18 Creatine Kinase 552 H 521 H CK-MB (CK-2) 4.05 Troponin I 0.079 NT-Pro-B Natriuret Pep 07/04/20 04:18 Creatine Kinase CK-MB (CK-2) 3.54 Troponin I 0.063 NT-Pro-B Natriuret Pep Impressions: Abdomen Ultrasound 07/03/20 00:00 IMPRESSION: FATTY INFILTRATION OF THE LIVER. LARGE CORTICAL CYST IN THE RIGHT KIDNEY, SUBOPTIMALLY VISUALIZED. NO OTHER SIGNIFICANT FINDING IN THE VISUALIZED ABDOMEN. Chest X-Ray 07/03/20 12:03 IMPRESSION: CHRONIC APPEARING INTERSTITIAL CHANGES. NO DEFINITE ACUTE FIN DINGS. Chest/Abdomen CTA 07/03/20 13:52 IMPRESSION: 1. No pulmonary emboli. No aortic aneurysm or dissection. 2. Mild centrilobular emphysema. 3. Ground-glass opacification in both lungs. May suggest chronic interstitial changes, interstitial edema, or atypical infectious/ inflammatory process. 4. Cardiomegaly. Cannot exclude mild pulmonary edema. 5. Hepatic steatosis. Assessment & Plan - Diagnosis (1) COVID-19 Is this a current diagnosis for this admission?: Yes Plan: Continues the dexamethasone continues the antibiotic antiviral drugs (2) Elevated troponin Is this a current diagnosis for this admission?: Yes Plan: All clinically stable no acute coronary syndromes per cardiology no need for any further interventions (3) Lung cancer Qualifiers: Laterality: right Is this a current diagnosis for this admission?: Yes Plan: CT scan is all stable discussed with the oncology no need for further interventions right now (4) Respiratory failure Qualifiers: Chronicity: acute Is this a current diagnosis for this admission?: Yes Plan: Continues to monitor on the BiPAP (5) Type 2 diabetes mellitus Qualifiers: Diabetes mellitus terminal makeup operator insulin use: without terminal makeup operator use Is this a current diagnosis for this admission?: Yes Plan: Sliding scales (6) Elevated LFTs Is this a current diagnosis for this admission?: Yes Plan: Ultrasound show no any acute finding (7) COPD (chronic obstructive pulmonary disease) Qualifiers: COPD type: COPD with acute exacerbation Qualified Code(s): J44.1 - Chronic obstructive pulmonary disease with (acute) exacerbation Is this a current diagnosis for this admission?: Yes Plan: Continues to nebulizer treatments (8) Fever Qualifiers: Fever type: unspecified Qualified Code(s): R50.9 - Fever, unspecified Is this a current diagnosis for this admission?: Yes (9) Sleep apnea Qualifiers: Sleep apnea type: unspecified type Qualified Code(s): G47.30 - Sleep apnea, unspecified Is this a current diagnosis for this admission?: Yes Plan: Continue CPAP at night - Time Time Spent with patient: 25-34 minutes Level of Care: IMCU Medications reviewed and adjusted accordingly: Yes Anticipated discharge: Home Anticipated DC Timeframe: Other - Plan Summary Plan Summary: Continue current medications Discussed with the patient and the patient's
[2020-07-04] MEDS ORDERED: AZITHROMYCIN 250 MG in DEXTROSE 5%-WATER 250 ML IV SCH (10:00)
[2020-07-04] MEDS ORDERED: [UNRECOGNIZED DRUG - OTHER] OU SCH (10:00)
[2020-07-04] MEDS ORDERED: REMDESIVIR 200 MG in NORMAL SALINE 250 ML IV ONE (10:00)
[2020-07-04] MEDS: DEXAMETHASONE SOD PHOSPHATE INJ 4 MG/1 ML VIAL IV SCH ×2 (10:55→21:31)
[2020-07-04] MEDS: METOPROLOL SUCCINATE 50 MG TAB.SR.24H PO SCH ×2 (10:55→21:32)
[2020-07-04] MEDS: FAMOTIDINE INJ/PF 20 MG/2 ML SDV IV SCH ×2 (10:56→21:31)
[2020-07-04] MEDS: AZITHROMYCIN 250 MG in DEXTROSE 5%-WATER 250 ML IV SCH (10:56)
[2020-07-04] MEDS: ENOXAPARIN SODIUM INJ 40 MG/0.4 ML DISP.SYRIN SUBCUT SCH (10:56)
[2020-07-04] MEDS: CEFTRIAXONE 1 GM/D5W RTU 1 GM/50 ML RTUPB IV SCH (17:48)
--- NOTE | 2020-07-04 19:05 | EKG REPORT ---
SEVERITY:- ABNORMAL ECG - SINUS RHYTHM ABNORMAL T, CONSIDER ISCHEMIA, LATERAL LEADS APC : Confirmed by: Brina Freire 04-Jul-2020 19:04:59
[2020-07-04] MEDS: ASPIRIN 81 MG TABLET, CHEWABLE PO SCH (21:32)
[2020-07-04] MEDS: LATANOPROST 0.005% OPH SOLN 2.5 ML OU SCH (21:41)
[2020-07-05 05:20] LABS: ABSOLUTE LYMPHOCYTES (AUTO) 0.7 10^3/uL (0.5-4.7); ABSOLUTE MONOCYTES (AUTO) 0.6 10^3/uL (0.1-1.4); ABSOLUTE NEUT (AUTO) 8.4 10^3/uL (1.7-8.2); BASOPHILS % (AUTO) 0.3 % (0-2); HEMATOCRIT 38.4 % (37.9-51.0); HEMOGLOBIN 12.7 g/dL (13.5-17.0); LYMPHOCYTES % (AUTO) 6.9 % (13-45); MEAN CORPUSCULAR HEMOGLOBIN 28.3 pg (27.0-33.4); MEAN CORPUSCULAR HGB CONC 33.1 g/dL (32.0-36.0); MEAN CORPUSCULAR VOLUME 86 fl (80-97); MONOCYTES % (AUTO) 5.8 % (3-13); PLATELET COUNT 289 10^3/uL (150-450); RED BLOOD COUNT 4.49 10^6/uL (4.35-5.55); RED CELL DISTRIBUTION WIDTH 14.4 % (11.5-14.0); TOTAL CELLS COUNTED % (AUTO) 100 %; WHITE BLOOD COUNT 9.7 10^3/uL (4.0-10.5)
[2020-07-05 05:36] LABS: ALBUMIN 3.2 g/dL (3.5-5.0); ALKALINE PHOSPHATASE 98 U/L (38-126); ANION GAP 12 (5-19); ASPARTATE AMINO TRANSFERASE 82 U/L (17-59); BILIRUBIN,DIRECT 0.3 mg/dL (0.0-0.4); BILIRUBIN,TOTAL 0.7 mg/dL (0.2-1.3); BLOOD UREA NITROGEN 27 mg/dL (7-20); CALCIUM 8.3 mg/dL (8.4-10.2); CARBON DIOXIDE 25 mmol/L (22-30); CHLORIDE 108 mmol/L (98-107); GLUCOSE 177 mg/dL (75-110); POTASSIUM 4.1 mmol/L (3.6-5.0); TOTAL PROTEIN 6.9 g/dL (6.3-8.2)
[2020-07-05] MEDS: INSULIN LISPRO 100 UNIT/ML 3 ML VIAL SUBCUT SCH ×4 (08:27→22:00)
[2020-07-05] MEDS: IPRATROPIUM/ALBUTEROL 0.5-2.5 MG/3 ML AMPUL NEB SCH ×3 (08:31→20:22)
[2020-07-05 10:00] LABS: ARTERIAL BLOOD BASE EXCESS -0.7 mmol/L; ARTERIAL BLOOD H2CO3 0.97 mmol/L (1.05-1.35); ARTERIAL BLOOD HCO3 22.2 mmol/L (20-24); ARTERIAL BLOOD O2 SATURATION 88.3 % (94-98); ARTERIAL BLOOD PCO2 32.1 mmHg (35-45); ARTERIAL BLOOD PH 7.46 (7.35-7.45); ARTERIAL BLOOD PO2 50.8 mmHg (80-100); ARTERIAL BLOOD TOTAL CO2 23.2 mmol/L (23-27)
[2020-07-05 10:03] LABS: ARTERIAL BLOOD FIO2 35%
[2020-07-05] MEDS ORDERED: NORMAL SALINE 250 ML IV PRN (10:26)
--- NOTE | 2020-07-05 10:30 | PDOC PROGRESS REPORT ---
Subjective Date:: 07/05/20 Subjective:: Patient is currently doing fair Still require BiPAP No chest pain no shortness of the breath No fever no chills Reason For Visit: SOB/COVID/LUNG CANCER Physical Exam Vital Signs: Temp Pulse Resp BP Pulse Ox 97.6 F 80 31 H 162/96 H 93 07/05/20 08:04 07/05/20 09:42 07/05/20 09:42 07/05/20 07:54 07/05/20 09:42 Intake & Output 07/04/20 07/05/20 07/06/20 06:59 06:59 06:59 Intake Total 810 1000 Output Total 125 300 Balance 685 700 Weight 81.2 kg 81.2 kg General appearance: PRESENT: no acute distress Eye exam: PRESENT: PERRLA Mouth exam: PRESENT: neck supple GI/Abdominal exam: PRESENT: normal bowel sounds, soft Neurological exam: PRESENT: alert, awake, oriented to person, oriented to place, oriented to time, oriented to situation Results Laboratory Results: 07/05/20 04:54 07/05/20 04:54 07/05/20 07/05/20 07/05/20 04:54 04:54 09:40 WBC 9.7 RBC 4.49 Hgb 12.7 L Hct 38.4 MCV 86 MCH 28.3 MCHC 33.1 RDW 14.4 H Plt Count 289 Seg Neutrophils % 87.0 H Carbonic Acid 0.97 L HCO3/H2CO3 Ratio 22:1 ABG pH 7.46 H ABG pCO2 32.1 L ABG pO2 50.8 L ABG HCO3 22.2 ABG O2 Saturation 88.3 L ABG Base Excess -0.7 FiO2 35% Sodium 144.9 Potassium 4.1 Chloride 108 H Carbon Dioxide 25 Anion Gap 12 BUN 27 H Creatinine 0.98 Est GFR ( Amer) > 60 Glucose 177 H Calcium 8.3 L Magnesium 2.6 H Total Bilirubin 0.7 AST 82 H Alkaline Phosphatase 98 Total Protein 6.9 Albumin 3.2 L 07/03/20 19:16 Catheterized Urine Urine Culture - Final NO GROWTH 2 DAYS 07/03/20 07/03/20 07/03/20 11:58 15:20 15:20 Creatine Kinase 576 H CK-MB (CK-2) 3.67 Troponin I 0.082 0.146 NT-Pro-B Natriuret Pep 1490 H 07/03/20 07/03/20 07/04/20 22:02 22:02 04:18 Creatine Kinase 552 H 521 H CK-MB (CK-2) 4.05 Troponin I 0.079 NT-Pro-B Natriuret Pep 07/04/20 04:18 Creatine Kinase CK-MB (CK-2) 3.54 Troponin I 0.063 NT-Pro-B Natriuret Pep Impressions: Abdomen Ultrasound 07/03/20 00:00 IMPRESSION: FATTY INFILTRATION OF THE LIVER. LARGE CORTICAL CYST IN THE RIGHT KIDNEY, SUBOPTIMALLY VISUALIZED. NO OTHER SIGNIFICANT FINDING IN THE VISUALIZED ABDOMEN. Chest X-Ray 07/03/20 12:03 IMPRESSION: CHRONIC APPEARING INTERSTITIAL CHANGES. NO DEFINITE ACUTE FINDINGS. Chest/Abdomen CTA 07/03/20 13:52 IMPRESSION: 1. No pulmonary emboli. No aortic aneurysm or dissection. 2. Mild centrilobular emphysema. 3. Ground-glass opacification in both lungs. May suggest chronic interstitial changes, interstitial edema, or atypical infectious/ inflammatory process. 4. Cardiomegaly. Cannot exclude mild pulmonary edema. 5. Hepatic steatosis. Assessment & Plan - Diagnosis (1) COVID-19 Is this a current diagnosis for this admission?: Yes (2) Elevated troponin Is this a current diagnosis for this admission?: Yes (3) Lung cancer Qualifiers: Laterality: right Is this a current diagnosis for this admission?: Yes (4) Respiratory failure Qualifiers: Chronicity: acute Is this a current diagnosis for this admission?: Yes (5) Type 2 diabetes mellitus Qualifiers: Diabetes mellitus termite exterminator insulin use: without termite exterminator use Is this a current diagnosis for this admission?: Yes (6) Elevated LFTs Is this a current diagnosis for this admission?: Yes (7) COPD (chronic obstructive pulmonary disease) Qualifiers: COPD type: COPD with acute exacerbation Qualified Code(s): J44.1 - Chronic obstructive pulmonary disease with (acute) exacerbation Is this a current diagnosis for this admission?: Yes (8) Fever Qualifiers: Fever type: unspecified Qualified Code(s): R50.9 - Fever, unspecified Is this a current diagnosis for this admission?: Yes (9) Sleep apnea Qualifiers: Sleep apnea type: unspecified type Qualified Code(s): G47.30 - Sleep apnea, unspecified Is this a current diagnosis for this admission?: Yes - Time Time Spent with patient: 15-24 minutes Level of Care: IMCU Medications reviewed and adjusted accordingly: Yes Anticipated discharge: Home with Homehealth Anticipated DC Timeframe: Other - Plan Summary Plan Summary: Continues to current supportive treatments we will add the plasma therapy today with the antiviral Discussed with the regarding the patient's current conditions still with the multiple underlying respiratory comorbidity lung cancer patient still high risk with the multiple complications
[2020-07-05] MEDS: DEXAMETHASONE SOD PHOSPHATE INJ 4 MG/1 ML VIAL IV SCH ×2 (10:36→22:00)
[2020-07-05] MEDS: ENOXAPARIN SODIUM INJ 40 MG/0.4 ML DISP.SYRIN SUBCUT SCH (10:37)
[2020-07-05] MEDS: FAMOTIDINE INJ/PF 20 MG/2 ML SDV IV SCH ×2 (10:37→22:00)
[2020-07-05] MEDS: METOPROLOL SUCCINATE 50 MG TAB.SR.24H PO SCH ×2 (10:37→22:00)
[2020-07-05] MEDS: REMDESIVIR 100 MG in NORMAL SALINE 250 ML IV SCH (10:37)
[2020-07-05] MEDS: AZITHROMYCIN 250 MG in DEXTROSE 5%-WATER 250 ML IV SCH (12:00)
[2020-07-05] MEDS: CEFTRIAXONE 1 GM/D5W RTU 1 GM/50 ML RTUPB IV SCH (18:59)
[2020-07-05] MEDS: ASPIRIN 81 MG TABLET, CHEWABLE PO SCH (22:00)
[2020-07-05] MEDS: LATANOPROST 0.005% OPH SOLN 2.5 ML OU SCH (22:10)
[2020-07-06 05:57] LABS: ABSOLUTE LYMPHOCYTES (AUTO) 0.6 10^3/uL (0.5-4.7); ABSOLUTE MONOCYTES (AUTO) 0.6 10^3/uL (0.1-1.4); BASOPHILS % (AUTO) 0.5 % (0-2); HEMATOCRIT 38.7 % (37.9-51.0); HEMOGLOBIN 12.8 g/dL (13.5-17.0); LYMPHOCYTES % (AUTO) 6.5 % (13-45); MEAN CORPUSCULAR HEMOGLOBIN 28.9 pg (27.0-33.4); MEAN CORPUSCULAR HGB CONC 33.2 g/dL (32.0-36.0); MEAN CORPUSCULAR VOLUME 87 fl (80-97); MONOCYTES % (AUTO) 6.3 % (3-13); PLATELET COUNT 215 10^3/uL (150-450); RED BLOOD COUNT 4.43 10^6/uL (4.35-5.55); RED CELL DISTRIBUTION WIDTH 14.5 % (11.5-14.0); SEGMENTED NEUTROPHILS % (AUTO) 86.7 % (42-78); TOTAL CELLS COUNTED % (AUTO) 100 %; WHITE BLOOD COUNT 9.2 10^3/uL (4.0-10.5)
[2020-07-06 06:15] LABS: ANION GAP 10 (5-19); BLOOD UREA NITROGEN 23 mg/dL (7-20); CALCIUM 8.6 mg/dL (8.4-10.2); CARBON DIOXIDE 26 mmol/L (22-30); CHLORIDE 109 mmol/L (98-107); GLUCOSE 153 mg/dL (75-110); POTASSIUM 3.9 mmol/L (3.6-5.0)
[2020-07-06] MEDS: IPRATROPIUM/ALBUTEROL 0.5-2.5 MG/3 ML AMPUL NEB SCH ×3 (08:09→20:59)
[2020-07-06] MEDS: INSULIN LISPRO 100 UNIT/ML 3 ML VIAL SUBCUT SCH ×4 (10:05→21:07)
[2020-07-06] MEDS: METOPROLOL SUCCINATE 50 MG TAB.SR.24H PO SCH ×2 (10:07→21:19)
[2020-07-06] MEDS: DEXAMETHASONE SOD PHOSPHATE INJ 4 MG/1 ML VIAL IV SCH ×2 (10:07→21:19)
[2020-07-06] MEDS: FAMOTIDINE INJ/PF 20 MG/2 ML SDV IV SCH ×2 (10:07→21:19)
[2020-07-06] MEDS: REMDESIVIR 100 MG in NORMAL SALINE 250 ML IV SCH (10:08)
[2020-07-06] MEDS: ENOXAPARIN SODIUM INJ 40 MG/0.4 ML DISP.SYRIN SUBCUT SCH (10:08)
[2020-07-06] MEDS: AZITHROMYCIN 250 MG in DEXTROSE 5%-WATER 250 ML IV SCH (10:08)
--- NOTE | 2020-07-06 11:05 | RADIOLOGY REPORT (SQ) ---
EXAM DESCRIPTION: CHEST SINGLE VIEW IMAGES COMPLETED DATE/TIME: 07/06/2020 10:52 am REASON FOR STUDY: pnemonia COMPARISON: AP view of the chest from 07/03/2020. EXAM PARAMETERS: NUMBER OF VIEWS: One view. TECHNIQUE: An AP view of the chest was obtained. RADIATION DOSE: NA LIMITATIONS: None. FINDINGS: LUNGS AND PLEURA: Chronic diffuse interstitial opacities. There is no superimposed consol idation, pleural effusion or pneumothorax. MEDIASTINUM AND HILAR STRUCTURES: No mediastinal or hilar contour abnormality. HEART AND VASCULAR STRUCTURES: The cardiac silhouette and pulmonary vasculature are within normal domínguez its. BONES: No acute findings. HARDWARE: None in the chest. OTHER: No other finding. IMPRESSION: Chronic diffuse interstitial opacities without a superimposed acute consolidation, pleur al effusion or pneumothorax. TECHNICAL DOCUMENTATION: JOB ID: [id number] 2010 [employer]- All Rights Reserved Reading location - IP/workstation name: [email or web address]
--- NOTE | 2020-07-06 12:22 | PDOC PROGRESS REPORT ---
Subjective Date:: 07/06/20 Subjective:: Patient is currently doing fair overnight patient no more confusions but this mo rning he is more alert awake oriented denied any complaints still on a BiPAP Patient's chest x-ray is pretty much same with a chronic diffuse disease with underlying COPD history of the lung cancer with recent Covid Reason For Visit: SOB/COVID/LUNG CANCER Physical Exam Vital Signs: Temp Pulse Resp BP Pulse Ox 97.7 F 66 26 H 164/85 H 94 07/06/20 08:46 07/06/20 08:46 07/06/20 08:46 07/06/20 08:46 07/06/20 08:46 Intake & Output 07/05/20 07/06/20 07/07/20 06:59 06:59 06:59 Intake Total 1000 1294 Output Total 300 920 Balance 700 374 Weight 81.2 kg 82.7 kg General appearance: PRESENT: no acute distress Eye exam: PRESENT: PERRLA - 6' Respiratory exam: PRESENT: decreased breath sounds Cardiovascular exam: PRESENT: +S1, +S2 Neurological exam: PRESENT: alert, awake, oriented to person, oriented to place Results Laboratory Results: 07/06/20 05:27 07/06/20 05:27 07/05/20 07/06/20 07/06/20 11:20 05:27 05:27 WBC 9.2 RBC 4.43 Hgb 12.8 L Hct 38.7 MCV 87 MCH 28.9 MCHC 33.2 RDW 14.5 H Plt Count 215 Seg Neutrophils % 86.7 H Sodium 144.5 Potassium 3.9 Chloride 109 H Carbon Dioxide 26 Anion Gap 10 BUN 23 H Creatinine 0.87 Est GFR ( Amer) > 60 Glucose 153 H Calcium 8.6 Magnesium 2.5 H Blood Type O POSITIVE 07/03/20 19:16 Catheterized Urine Urine Culture - Final NO GROWTH 2 DAYS 07/03/20 07/03/20 07/03/20 11:58 15:20 15:20 Creatine Kinase 576 H CK-MB (CK-2) 3.67 Troponin I 0.082 0.146 NT-Pro-B Natriuret Pep 1490 H 07/03/20 07/03/20 07/04/20 22:02 22:02 04:18 Creatine Kinase 552 H 521 H CK-MB (CK-2) 4.05 Troponin I 0.079 NT-Pro-B Natriuret Pep 07/04/20 04:18 Creatine Kinase CK-MB (CK-2) 3.54 Troponin I 0.063 NT-Pro-B Natriuret Pep Impressions: Abdomen Ultrasound 07/03/20 00:00 IMPRESSION: FATTY INFILTRATION OF THE LIVER. LARGE CORTICAL CYST IN THE RIGHT KIDNEY, SUBOPTIMALLY VISUALIZED. NO OTHER SIGNIFICANT FINDING IN THE VISUALIZED ABDOMEN. Chest/Abdomen CTA 07/03/20 13:52 IMPRESSION: 1. No pulmonary emboli. No aortic aneurysm or dissection. 2. Mild centrilobular emphysema. 3. Ground-glass opacification in both lungs. May suggest chronic interstitial changes, interstitial edema, or atypical infectious/ inflammatory process. 4. Cardiomegaly. Cannot exclude mild pulmonary edema. 5. Hepatic steatosis. Chest X-Ray 07/06/20 00:00 IMPRESSION: Chronic diffuse interstitial opacities without a superimposed acute consolidation, pleural effusion or pneumothorax. 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 Is this a current diagnosis for this admission?: Yes (6) Elevated LFTs Is this a current diagnosis for this admission?: Yes (7) COPD (chronic obstructive pulmonary disease) Qualifiers: COPD type: COPD with acute exacerbation Qualified Code(s): J44.1 - Chronic obstructive pulmonary disease with (acute) exacerbation Is this a current diagnosis for this admission?: Yes (8) Fever Qualifiers: Fever type: unspecified Qualified Code(s): R50.9 - Fever, unspecified Is this a current diagnosis for this admission?: Yes (9) Sleep apnea Qualifiers: Sleep apnea type: unspecified type Qualified Code(s): G47.30 - Sleep apnea, unspecified Is this a current diagnosis for this admission?: Yes - Time Time Spent with patient: 15-24 minutes Level of Care: IMCU Medications reviewed and adjusted accordingly: Yes Anticipated discharge: Other Anticipated DC Timeframe: Other - Plan Summary Plan Summary: Continues to current medications continues to monitor discussed with the and with the patient's current conditions with the patient several previously already underlying multiple respiratory morbidity patients have a poor prognosis
[2020-07-06] MEDS: CEFTRIAXONE 1 GM/D5W RTU 1 GM/50 ML RTUPB IV SCH (17:30)
[2020-07-06] MEDS: BUDESONIDE NEB 0.5 MG/2 ML AMPUL NEB SCH (20:59)
[2020-07-06] MEDS: LATANOPROST 0.005% OPH SOLN 2.5 ML OU SCH (21:19)
[2020-07-06] MEDS: ASPIRIN 81 MG TABLET, CHEWABLE PO SCH (21:19)
[2020-07-07 05:47] LABS: ABSOLUTE LYMPHOCYTES (AUTO) 0.8 10^3/uL (0.5-4.7); ABSOLUTE MONOCYTES (AUTO) 0.4 10^3/uL (0.1-1.4); ABSOLUTE NEUT (AUTO) 7.6 10^3/uL (1.7-8.2); BASOPHILS % (AUTO) 0.2 % (0-2); HEMATOCRIT 39.8 % (37.9-51.0); HEMOGLOBIN 13.2 g/dL (13.5-17.0); MEAN CORPUSCULAR HEMOGLOBIN 29.3 pg (27.0-33.4); MEAN CORPUSCULAR HGB CONC 33.3 g/dL (32.0-36.0); MEAN CORPUSCULAR VOLUME 88 fl (80-97); MONOCYTES % (AUTO) 4.6 % (3-13); PLATELET COUNT 170 10^3/uL (150-450); RED BLOOD COUNT 4.52 10^6/uL (4.35-5.55); RED CELL DISTRIBUTION WIDTH 14.8 % (11.5-14.0); SEGMENTED NEUTROPHILS % (AUTO) 86.2 % (42-78); TOTAL CELLS COUNTED % (AUTO) 100 %; WHITE BLOOD COUNT 8.8 10^3/uL (4.0-10.5)
[2020-07-07 06:17] LABS: ANION GAP 9 (5-19); BLOOD UREA NITROGEN 24 mg/dL (7-20); CALCIUM 8.6 mg/dL (8.4-10.2); CARBON DIOXIDE 28 mmol/L (22-30); CHLORIDE 107 mmol/L (98-107); GLUCOSE 162 mg/dL (75-110); POTASSIUM 3.7 mmol/L (3.6-5.0)
[2020-07-07] MEDS: BUDESONIDE NEB 0.5 MG/2 ML AMPUL NEB SCH ×2 (08:40→20:27)
[2020-07-07] MEDS: IPRATROPIUM/ALBUTEROL 0.5-2.5 MG/3 ML AMPUL NEB SCH ×3 (08:40→20:27)
[2020-07-07] MEDS: FAMOTIDINE INJ/PF 20 MG/2 ML SDV IV SCH ×2 (10:19→21:18)
[2020-07-07] MEDS: INSULIN LISPRO 100 UNIT/ML 3 ML VIAL SUBCUT SCH ×4 (10:19→21:18)
[2020-07-07] MEDS: DEXAMETHASONE SOD PHOSPHATE INJ 4 MG/1 ML VIAL IV SCH ×2 (10:19→21:18)
[2020-07-07] MEDS: ENOXAPARIN SODIUM INJ 40 MG/0.4 ML DISP.SYRIN SUBCUT SCH (10:19)
[2020-07-07] MEDS: METOPROLOL SUCCINATE 50 MG TAB.SR.24H PO SCH ×2 (10:19→21:18)
[2020-07-07] MEDS: REMDESIVIR 100 MG in NORMAL SALINE 250 ML IV SCH (10:20)
[2020-07-07] MEDS: AZITHROMYCIN 250 MG in DEXTROSE 5%-WATER 250 ML IV SCH (10:20)
--- NOTE | 2020-07-07 14:42 | PDOC PROGRESS REPORT ---
Subjective Date:: 07/07/20 Subjective:: Patient continue to demonstrate confusion. He remain on supplemental oxygen and CPAP support with frequent interruption. No reported fever. Reason For Visit: SOB/COVID/LUNG CANCER Physical Exam Vital Signs: Temp Pulse Resp BP Pulse Ox 97.5 F 68 25 H 174/89 H 95 07/07/20 10:00 07/07/20 08:40 07/07/20 08:40 07/07/20 08:10 07/07/20 08:40 Intake & Output 07/06/20 07/07/20 07/08/20 06:59 06:59 06:59 Intake Total 1294 990 500 Output Total 920 850 Balance 374 140 500 Weight 82.7 kg 80.7 kg General appearance: PRESENT: mild distress - with CPAP usage Head exam: PRESENT: atraumatic, normocephalic Eye exam: PRESENT: conjunctiva pink. ABSENT: scleral icterus Respiratory exam: PRESENT: decreased breath sounds - at lung bases Cardiovascular exam: PRESENT: RRR, +S1, +S2 GI/Abdominal exam: PRESENT: normal bowel sounds, soft. ABSENT: tenderness Extremities exam: ABSENT: pedal edema Neurological exam: PRESENT: alert, awake, oriented to person. ABSENT: oriented to place, oriented to time, oriented to situation Skin exam: PRESENT: dry, warm Results Laboratory Results: 07/07/20 05:15 07/07/20 05:15 07/07/20 07/07/20 05:15 05:15 WBC 8.8 RBC 4.52 Hgb 13.2 L Hct 39.8 MCV 88 MCH 29.3 MCHC 33.3 RDW 14.8 H Plt Count 170 Seg Neutrophils % 86.2 H Sodium 143.7 Potassium 3.7 Chloride 107 Carbon Dioxide 28 Anion Gap 9 BUN 24 H Creatinine 0.89 Est GFR ( Amer) > 60 Glucose 162 H Calcium 8.6 07/03/20 07/03/20 07/03/20 11:58 15:20 15:20 Creatine Kinase 576 H CK-MB (CK-2) 3.67 Troponin I 0.082 0.146 NT-Pro-B Natriuret Pep 1490 H 07/03/20 07/03/20 07/04/20 22:02 22:02 04:18 Creatine Kinase 552 H 521 H CK-MB (CK-2) 4.05 Troponin I 0.079 NT-Pro-B Natriuret Pep 07/04/20 04:18 Creatine Kinase CK-MB (CK-2) 3.54 Troponin I 0.063 NT-Pro-B Natriuret Pep Impressions: Abdomen Ultrasound 07/03/20 00:00 IMPRESSION: FATTY INFILTRATION OF THE LIVER. LARGE CORTICAL CYST IN THE RIGHT KIDNEY, SUBOPTIMALLY VISUALIZED. NO OTHER SIGNIFICANT FINDING IN THE VISUALIZED ABDOMEN. Chest/Abdomen CTA 07/03/20 13:52 IMPRESSION: 1. No pulmonary emboli. No aortic aneurysm or dissection. 2. Mild centrilobular emphysema. 3. Ground-glass opacification in both lungs. May suggest chronic interstitial changes, interstitial edema, or atypical infectious/ inflammatory process. 4. Cardiomegaly. Cannot exclude mild pulmonary edema. 5. Hepatic steatosis. Chest X-Ray 07/06/20 00:00 IMPRESSION: Chronic diffuse interstitial opacities without a superimposed acute consolidation, pleural effusion or pneumothorax. Assessment & Plan - Diagnosis (1) COVID-19 Is this a current diagnosis for this admission?: Yes Plan: Continue current medication and supportive care plan. (2) COPD (chronic obstructive pulmonary disease) Qualifiers: COPD type: COPD with acute exacerbation Qualified Code(s): J44.1 - Chronic obstructive pulmonary disease with (acute) exacerbation Is this a current diagnosis for this admission?: Yes Plan: Maintain on current medication management. (3) Type 2 diabetes mellitus Qualifiers: Diabetes mellitus senior living insulin use: without senior living use Is this a current diagnosis for this admission?: Yes Plan: Continue current medication management. (4) HTN (hypertension) Qualifiers: Hypertension type: essential hypertension Qualified Code(s): I10 - Essential (primary) hypertension Is this a current diagnosis for this admission?: Yes Plan: Start on low dose Lisinopril and adjust as tolerated and necessary. - Time Time Spent with patient: 25-34 minutes Level of Care: IMCU Medications reviewed and adjusted accordingly: Yes Anticipated discharge: Home with Homehealth, SNF Anticipated DC Timeframe: within 72 hours - Inpatient Certification Based on my medical assessment, after consideration of the patient's comorbidities, presenting symptoms, or acuity I expect that the services needed warrant INPATIENT care.: Yes I certify that my determination is in accordance with my understanding of Medicare's requirements for reasonable and necessary INPATIENT services [42 CFR 412.3e].: Yes Medical Necessity: Significant Comorbidiites Make Outpatient Treatment Too Risky, Need Close Monitoring Due to Risk of Patient Decompensation, Need For IV Fluids, Need For Continuous Telemetry Monitoring, Need for IV Antibiotics, Risk of Complication if Not Cared For in Hospital, Risk of Diagnosis Which Will Require Inpatient Eval/Care/Monitoring Post Hospital Care: D/C Wheel Roller Documentation, D/C or Transfer Summary - Plan Summary Plan Summary: See covering attending physician orders for details about care plan.
[2020-07-07] MEDS: LISINOPRIL 5 MG TABLET PO SCH (14:51)
[2020-07-07] MEDS ORDERED: LISINOPRIL 5 MG TABLET PO SCH (15:00)
[2020-07-07] MEDS: CEFTRIAXONE 1 GM/D5W RTU 1 GM/50 ML RTUPB IV SCH (17:26)
[2020-07-07] MEDS: ASPIRIN 81 MG TABLET, CHEWABLE PO SCH (21:18)
[2020-07-07] MEDS: LATANOPROST 0.005% OPH SOLN 2.5 ML OU SCH ×2 (21:19→22:01)
[2020-07-08] MEDS: INSULIN LISPRO 100 UNIT/ML 3 ML VIAL SUBCUT SCH ×4 (08:15→21:56)
[2020-07-08] MEDS: IPRATROPIUM/ALBUTEROL 0.5-2.5 MG/3 ML AMPUL NEB SCH ×3 (08:20→20:00)
[2020-07-08] MEDS: BUDESONIDE NEB 0.5 MG/2 ML AMPUL NEB SCH ×2 (08:20→20:00)
[2020-07-08] MEDS: DEXAMETHASONE SOD PHOSPHATE INJ 4 MG/1 ML VIAL IV SCH ×2 (10:03→21:18)
[2020-07-08] MEDS: LISINOPRIL 5 MG TABLET PO SCH (10:03)
[2020-07-08] MEDS: AZITHROMYCIN 250 MG in DEXTROSE 5%-WATER 250 ML IV SCH (10:03)
[2020-07-08] MEDS: FAMOTIDINE INJ/PF 20 MG/2 ML SDV IV SCH ×2 (10:03→21:20)
[2020-07-08] MEDS: ENOXAPARIN SODIUM INJ 40 MG/0.4 ML DISP.SYRIN SUBCUT SCH (10:04)
[2020-07-08] MEDS: METOPROLOL SUCCINATE 50 MG TAB.SR.24H PO SCH ×2 (10:04→21:18)
[2020-07-08] MEDS: REMDESIVIR 100 MG in NORMAL SALINE 250 ML IV SCH (10:46)
[2020-07-08] MEDS: HALOPERIDOL LACTATE INJ 5 MG/1 ML VIAL IV PRN (15:26)
--- NOTE | 2020-07-08 16:10 | PDOC PROGRESS REPORT ---
Subjective Date:: 07/08/20 Subjective:: Patient continue to demonstrate confusion with agitation and lack of sleep for s everal days. He remain on CPAP support with supplemental oxygen. No reported fever. Reason For Visit: SOB/COVID/LUNG CANCER Physical Exam Vital Signs: Temp Pulse Resp BP Pulse Ox 97.6 F 80 32 H 165/76 H 96 07/08/20 08:51 07/08/20 13:49 07/08/20 11:42 07/08/20 08:51 07/08/20 11:42 Intake & Output 07/07/20 07/08/20 07/09/20 06:59 06:59 06:59 Intake Total 990 951 500 Output Total 850 625 Balance 140 326 500 Weight 80.7 kg 78.6 kg Physical Exam: General appearance: PRESENT: mild distress - with CPAP usage Head exam: PRESENT: atraumatic, normocephalic Eye exam: PRESENT: conjunctiva pink. ABSENT: pallor, sclera icterus Respiratory exam: PRESENT: decreased breath sounds - at lung bases Cardiovascular exam: PRESENT: RRR, +S1, +S2 GI/Abdominal exam: PRESENT: normal bowel sounds, soft. ABSENT: tenderness Extremities exam: ABSENT: pedal edema Neurological exam: PRESENT: alert, awake, oriented to person. ABSENT: oriented to place, oriented to time, oriented to situation Skin exam: PRESENT: dry, warm Results Laboratory Results: 07/07/20 05:15 07/07/20 05:15 07/03/20 12:29 Blood Blood Culture - Final NO GROWTH IN 5 DAYS 07/03/20 11:58 Blood Blood Culture - Final NO GROWTH IN 5 DAYS 07/03/20 07/03/20 07/03/20 11:58 15:20 15:20 Creatine Kinase 576 H CK-MB (CK-2) 3.67 Troponin I 0.082 0.146 NT-Pro-B Natriuret Pep 1490 H 07/03/20 07/03/20 07/04/20 22:02 22:02 04:18 Creatine Kinase 552 H 521 H CK-MB (CK-2) 4.05 Troponin I 0.079 NT-Pro-B Natriuret Pep 07/04/20 04:18 Creatine Kinase CK-MB (CK-2) 3.54 Troponin I 0.063 NT-Pro-B Natriuret Pep Impressions: Abdomen Ultrasound 07/03/20 00:00 IMPRESSION: FATTY INFILTRATION OF THE LIVER. LARGE CORTICAL CYST IN THE RIGHT KIDNEY, SUBOPTIMALLY VISUALIZED. NO OTHER SIGNIFICANT FINDING IN THE VISUALIZED ABDOMEN. Chest/Abdomen CTA 07/03/20 13:52 IMPRESSION: 1. No pulmonary emboli. No aortic aneurysm or dissection. 2. Mild centrilobular emphysema. 3. Ground-glass opacification in both lungs. May suggest chronic interstitial changes, interstitial edema, or atypical infectious/ inflammatory process. 4. Cardiomegaly. Cannot exclude mild pulmonary edema. 5. Hepatic steatosis. Chest X-Ray 07/06/20 00:00 IMPRESSION: Chronic diffuse interstitial opacities without a superimposed acute consolidation, pleural effusion or pneumothorax. 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 - Time Time Spent with patient: 25-34 minutes Level of Care: IMCU Medications reviewed and adjusted accordingly: Yes Anticipated discharge: Home with Homehealth Anticipated DC Timeframe: within 72 hours - Inpatient Certification Based on my medical assessment, after consideration of the patient's comorbidities, presenting symptoms, or acuity I expect that the services needed warrant INPATIENT care.: Yes I certify that my determination is in accordance with my understanding of Medicare's requirements for reasonable and necessary INPATIENT services [42 CFR 412.3e].: Yes Medical Necessity: Significant Comorbidiites Make Outpatient Treatment Too Risky, Need Close Monitoring Due to Risk of Patient Decompensation, Need For IV Fluids, Need For Continuous Telemetry Monitoring, Need for IV Antibiotics, Risk of Complication if Not Cared For in Hospital, Risk of Diagnosis Which Will Require Inpatient Eval/Care/Monitoring - Plan Summary Plan Summary: See covering attending physician orders for details about care plan.
[2020-07-08] MEDS: CEFTRIAXONE 1 GM/D5W RTU 1 GM/50 ML RTUPB IV SCH (17:27)
[2020-07-08] MEDS: ASPIRIN 81 MG TABLET, CHEWABLE PO SCH (21:18)
[2020-07-08] MEDS: LATANOPROST 0.005% OPH SOLN 2.5 ML OU SCH (21:21)
[2020-07-09] MEDS: HALOPERIDOL LACTATE INJ 5 MG/1 ML VIAL IV PRN ×2 (00:12→10:45)
[2020-07-09 06:09] LABS: HEMATOCRIT 35.9 % (37.9-51.0); HEMOGLOBIN 12.7 g/dL (13.5-17.0); MEAN CORPUSCULAR HEMOGLOBIN 32.3 pg (27.0-33.4); MEAN CORPUSCULAR HGB CONC 35.4 g/dL (32.0-36.0); MEAN CORPUSCULAR VOLUME 91 fl (80-97); PLATELET COUNT 155 10^3/uL (150-450); RED BLOOD COUNT 3.94 10^6/uL (4.35-5.55); RED CELL DISTRIBUTION WIDTH 14.7 % (11.5-14.0)
[2020-07-09 06:31] LABS: ALKALINE PHOSPHATASE 102 U/L (38-126); ANION GAP 13 (5-19); ASPARTATE AMINO TRANSFERASE 52 U/L (17-59); BILIRUBIN,DIRECT 0.3 mg/dL (0.0-0.4); BILIRUBIN,TOTAL 0.9 mg/dL (0.2-1.3); BLOOD UREA NITROGEN 30 mg/dL (7-20); CALCIUM 8.6 mg/dL (8.4-10.2); CARBON DIOXIDE 22 mmol/L (22-30); CHLORIDE 107 mmol/L (98-107); CREATINE KINASE 245 U/L (55-170); GLUCOSE 123 mg/dL (75-110); POTASSIUM 3.8 mmol/L (3.6-5.0); TOTAL PROTEIN 6.7 g/dL (6.3-8.2)
[2020-07-09 06:34] LABS: TROPONIN I 0.153 ng/mL
[2020-07-09 06:48] LABS: ABSOLUTE LYMPHOCYTES# (MANUAL) 0.4 10^3/uL (0.5-4.7); ABSOLUTE MONOCYTES # (MANUAL) 0.1 10^3/uL (0.1-1.4); ANISOCYTOSIS SLIGHT; BASOPHILS % (MANUAL) 0 % (0-2); BURR CELLS SLIGHT; EOSINOPHILS % (MANUAL) 0 % (0-6); LYMPHOCYTES % (MANUAL) 4 % (13-45); MONOCYTES % (MANUAL) 1 % (3-13); PLATELET CLUMPS PRESENT; PLATELET COMMENT ADEQUATE; POIKILOCYTOSIS 1+; SCHISTOCYTES SLIGHT; SEGMENTED NEUTROPHILS % (MAN) 95 % (42-78); TOTAL CELLS COUNTED 100
[2020-07-09] MEDS: BUDESONIDE NEB 0.5 MG/2 ML AMPUL NEB SCH ×2 (08:21→19:46)
[2020-07-09] MEDS: IPRATROPIUM/ALBUTEROL 0.5-2.5 MG/3 ML AMPUL NEB SCH ×3 (08:21→19:46)
[2020-07-09] MEDS: INSULIN LISPRO 100 UNIT/ML 3 ML VIAL SUBCUT SCH ×3 (09:07→17:30)
[2020-07-09] MEDS: AZITHROMYCIN 250 MG in DEXTROSE 5%-WATER 250 ML IV SCH (10:12)
[2020-07-09] MEDS: FAMOTIDINE 20 MG TABLET PO SCH (10:13)
[2020-07-09] MEDS: LISINOPRIL 5 MG TABLET PO SCH (10:13)
[2020-07-09] MEDS: DEXAMETHASONE SOD PHOSPHATE INJ 4 MG/1 ML VIAL IV SCH (10:13)
[2020-07-09] MEDS: ENOXAPARIN SODIUM INJ 40 MG/0.4 ML DISP.SYRIN SUBCUT SCH (10:13)
[2020-07-09] MEDS: METOPROLOL SUCCINATE 50 MG TAB.SR.24H PO SCH (10:14)
--- NOTE | 2020-07-09 10:55 | PDOC PROGRESS REPORT ---
Subjective Date:: 07/09/20 Subjective:: Patient continue to demonstrate agitation and lack of sleep on prn Haloperidol. No reported fever. Reason For Visit: SOB/COVID/LUNG CANCER Physical Exam Vital Signs: Temp Pulse Resp BP Pulse Ox 97.4 F 68 20 155/88 H 100 07/09/20 08:17 07/09/20 08:17 07/09/20 08:17 07/09/20 08:17 07/09/20 08:17 Intake & Output 07/08/20 07/09/20 07/10/20 06:59 06:59 06:59 Intake Total 951 971 Output Total 625 Balance 326 971 Weight 78.6 kg 78.6 kg Physical Exam: General appearance: PRESENT: mild distress and agitated Head exam: PRESENT: atraumatic, normocephalic Eye exam: PRESENT: conjunctiva pink. ABSENT: pallor, sclera icterus Respiratory exam: PRESENT: decreased breath sounds - at lung bases Cardiovascular exam: PRESENT: RRR, +S1, +S2 GI/Abdominal exam: PRESENT: normal bowel sounds, soft. ABSENT: tenderness Extremities exam: ABSENT: pedal edema Neurological exam: PRESENT: alert, awake, oriented to person. ABSENT: oriented to place, oriented to time, oriented to situation Skin exam: PRESENT: dry, warm Results Laboratory Results: 07/09/20 04:30 07/09/20 04:30 07/09/20 07/09/20 04:30 04:30 WBC 9.0 RBC 3.94 L Hgb 12.7 L Hct 35.9 L MCV 91 MCH 32.3 MCHC 35.4 RDW 14.7 H Plt Count 155 Seg Neutrophils % Not Reportable Sodium 141.9 Potassium 3.8 Chloride 107 Carbon Dioxide 22 Anion Gap 13 BUN 30 H Creatinine 0.93 Est GFR ( Amer) > 60 Glucose 123 H Calcium 8.6 Total Bilirubin 0.9 AST 52 Alkaline Phosphatase 102 Total Protein 6.7 Albumin 3.0 L 07/03/20 12:29 Blood Blood Culture - Final NO GROWTH IN 5 DAYS 07/03/20 11:58 Blood Blood Culture - Final NO GROWTH IN 5 DAYS 07/03/20 07/03/20 07/03/20 11:58 15:20 15:20 Creatine Kinase 576 H CK-MB (CK-2) 3.67 Troponin I 0.082 0.146 NT-Pro-B Natriuret Pep 1490 H 07/03/20 07/03/20 07/04/20 22:02 22:02 04:18 Creatine Kinase 552 H 521 H CK-MB (CK-2) 4.05 Troponin I 0.079 NT-Pro-B Natriuret Pep 07/04/20 07/09/20 07/09/20 04:18 04:30 04:30 Creatine Kinase 245 H CK-MB (CK-2) 3.54 3.00 Troponin I 0.063 0.153 NT-Pro-B Natriuret Pep Impressions: Abdomen Ultrasound 07/03/20 00:00 IMPRESSION: FATTY INFILTRATION OF THE LIVER. LARGE CORTICAL CYST IN THE RIGHT KIDNEY, SUBOPTIMALLY VISUALIZED. NO OTHER SIGNIFICANT FINDING IN THE VISUALIZED ABDOMEN. Chest/Abdomen CTA 07/03/20 13:52 IMPRESSION: 1. No pulmonary emboli. No aortic aneurysm or dissection. 2. Mild centrilobular emphysema. 3. Ground-glass opacification in both lungs. May suggest chronic interstitial changes, interstitial edema, or atypical infectious/ inflammatory process. 4. Cardiomegaly. Cannot exclude mild pulmonary edema. 5. Hepatic steatosis. Chest X-Ray 07/06/20 00:00 IMPRESSION: Chronic diffuse interstitial opacities without a superimposed acute consolidation, pleural effusion or pneumothorax. 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: without superintendent marine oil terminal use Is this a current diagnosis for this admission?: Yes (4) HTN (hypertension) Qualifiers: Hypertension type: essential hypertension Qualified Code(s): I10 - Essential (primary) hypertension Is this a current diagnosis for this admission?: Yes (5) Agitation states as acute reaction to exceptional (gross) stress Is this a current diagnosis for this admission?: Yes - Time Time Spent with patient: 25-34 minutes Level of Care: IMCU Medications reviewed and adjusted accordingly: Yes Anticipated discharge: SNF Anticipated DC Timeframe: within 72 hours - Inpatient Certification Based on my medical assessment, after consideration of the patient's comorbid ities, presenting symptoms, or acuity I expect that the services needed warrant INPATIENT care.: Yes I certify that my determination is in accordance with my understanding of Medicare's requirements for reasonable and necessary INPATIENT services [42 CFR 412.3e].: Yes Medical Necessity: Significant Comorbidiites Make Outpatient Treatment Too Risky, Need Close Monitoring Due to Risk of Patient Decompensation, Need For IV Fluids, Need For Continuous Telemetry Monitoring, Need for IV Antibiotics, Risk of Complication if Not Cared For in Hospital, Risk of Diagnosis Which Will Require Inpatient Eval/Care/Monitoring - Plan Summary Plan Summary: Continue current medication management. Se covering attending physician orders for details about care plan.
[2020-07-09] MEDS ORDERED: HALOPERIDOL LACTATE INJ 5 MG/1 ML VIAL IV ONE (11:15)
[2020-07-09] MEDS: CEFTRIAXONE 1 GM/D5W RTU 1 GM/50 ML RTUPB IV SCH (18:45)
[2020-07-10] MEDS: METOPROLOL SUCCINATE 50 MG TAB.SR.24H PO SCH ×3 (00:10→22:04)
[2020-07-10] MEDS: INSULIN LISPRO 100 UNIT/ML 3 ML VIAL SUBCUT SCH ×5 (00:11→22:03)
[2020-07-10] MEDS: ASPIRIN 81 MG TABLET, CHEWABLE PO SCH ×2 (00:11→22:01)
[2020-07-10] MEDS: FAMOTIDINE 20 MG TABLET PO SCH ×3 (00:11→22:01)
[2020-07-10] MEDS: DEXAMETHASONE SOD PHOSPHATE INJ 4 MG/1 ML VIAL IV SCH ×3 (00:12→22:04)
[2020-07-10] MEDS: LATANOPROST 0.005% OPH SOLN 2.5 ML OU SCH ×2 (00:12→22:05)
[2020-07-10] MEDS: IPRATROPIUM/ALBUTEROL 0.5-2.5 MG/3 ML AMPUL NEB SCH ×3 (07:33→19:58)
[2020-07-10] MEDS: BUDESONIDE NEB 0.5 MG/2 ML AMPUL NEB SCH ×2 (07:33→19:58)
[2020-07-10] MEDS: LISINOPRIL 5 MG TABLET PO SCH (10:48)
[2020-07-10] MEDS: ENOXAPARIN SODIUM INJ 40 MG/0.4 ML DISP.SYRIN SUBCUT SCH (10:48)
[2020-07-10] MEDS: AZITHROMYCIN 250 MG in DEXTROSE 5%-WATER 250 ML IV SCH (10:50)
--- NOTE | 2020-07-10 12:44 | RADIOLOGY REPORT (SQ) ---
EXAM DESCRIPTION: CHEST SINGLE VIEW IMAGES COMPLETED DATE/TIME: 07/10/2020 11:33 am REASON FOR STUDY: sob COMPARISON: 07/06/2020 NUMBER OF VIEWS: One view. TECHNIQUE: Single frontal radiographic image of the chest acquired. LIMITATIONS: Positioning. FINDINGS: LUNGS AND PLEURA: Chronic interstitial changes. Improved aeration in the right lower lobe . MEDIASTINUM AND HEART: Stable heart size and mediastinal structures. BONY STRUCTURES: No acute findings. HARDWARE: None. OTHER: No other significant finding. IMPRESSION: Slight improvement. TECHNICAL DOCUMENTATION: JOB ID: [id number] Reading location - IP/workstation name: [email or web address]
[2020-07-10 13:11] LABS: ARTERIAL BLOOD BASE EXCESS -1.7 mmol/L; ARTERIAL BLOOD FIO2 15L; ARTERIAL BLOOD H2CO3 1.09 mmol/L (1.05-1.35); ARTERIAL BLOOD HCO3 22.4 mmol/L (20-24); ARTERIAL BLOOD O2 SATURATION 93.3 % (94-98); ARTERIAL BLOOD PCO2 36.1 mmHg (35-45); ARTERIAL BLOOD PH 7.41 (7.35-7.45); ARTERIAL BLOOD PO2 65.7 mmHg (80-100); ARTERIAL BLOOD TOTAL CO2 23.5 mmol/L (23-27)
[2020-07-10] MEDS: HALOPERIDOL LACTATE INJ 5 MG/1 ML VIAL IV PRN (17:05)
--- NOTE | 2020-07-10 20:15 | PDOC PROGRESS REPORT ---
Subjective Date:: 07/10/20 Subjective:: Patient seen by the bedside, he has Covid pneumonia with agitation Reason For Visit: SOB/COVID/LUNG CANCER Physical Exam Vital Signs: Temp Pulse Resp BP Pulse Ox 98.3 F 64 26 H 146/72 H 94 07/10/20 15:43 07/10/20 15:43 07/10/20 16:21 07/10/20 15:43 07/10/20 16:21 Intake & Output 07/09/20 07/10/20 07/11/20 06:59 06:59 06:59 Intake Total 971 761 240 Output Total 1100 475 Balance 444 -576 -528 Weight 78.6 kg 77.3 kg General appearance: PRESENT: no acute distress Eye exam: PRESENT: PERRLA Respiratory exam: PRESENT: clear to auscultation chad Cardiovascular exam: PRESENT: +S1, +S2 GI/Abdominal exam: PRESENT: soft Neurological exam: PRESENT: alert Results Laboratory Results: 07/09/20 04:30 07/09/20 04:30 07/10/20 11:35 Carbonic Acid 1.09 HCO3/H2CO3 Ratio 20:1 ABG pH 7.41 ABG pCO2 36.1 ABG pO2 65.7 L ABG HCO3 22.4 ABG O2 Saturation 93.3 L ABG Base Excess -1.7 FiO2 15L 07/03/20 07/03/20 07/03/20 11:58 15:20 15:20 Creatine Kinase 576 H CK-MB (CK-2) 3.67 Troponin I 0.082 0.146 NT-Pro-B Natriuret Pep 1490 H 07/03/20 07/03/20 07/04/20 22:02 22:02 04:18 Creatine Kinase 552 H 521 H CK-MB (CK-2) 4.05 Troponin I 0.079 NT-Pro-B Natriuret Pep 07/04/20 07/09/20 07/09/20 04:18 04:30 04:30 Creatine Kinase 245 H CK-MB (CK-2) 3.54 3.00 Troponin I 0.063 0.153 NT-Pro-B Natriuret Pep Impressions: Abdomen Ultrasound 07/03/20 00:00 IMPRESSION: FATTY INFILTRATION OF THE LIVER. LARGE CORTICAL CYST IN THE RIGHT KIDNEY, SUBOPTIMALLY VISUALIZED. NO OTHER SIGNIFICANT FINDING IN THE VISUALIZED ABDOMEN. Chest/Abdomen CTA 07/03/20 13:52 IMPRESSION: 1. No pulmonary emboli. No aortic aneurysm or dissection. 2. Mild centrilobular emphysema. 3. Ground-glass opacification in both lungs. May suggest chronic interstitial changes, interstitial edema, or atypical infectious/ inflammatory process. 4. Cardiomegaly. Cannot exclude mild pulmonary edema. 5. Hepatic steatosis. Chest X-Ray 07/10/20 00:00 IMPRESSION: Slight improvement. Assessment & Plan - Diagnosis (1) Acute hypoxemic respiratory failure Is this a current diagnosis for this admission?: Yes Plan: Continue present supplemental oxygen (2) COVID-19 Is this a current diagnosis for this admission?: Yes - Time Time Spent with patient: 25-34 minutes Level of Care: IMCU Medications reviewed and adjusted accordingly: Yes Anticipated discharge: Home Anticipated DC Timeframe: Other
[2020-07-11 06:27] LABS: ANION GAP 7 (5-19); BLOOD UREA NITROGEN 29 mg/dL (7-20); CALCIUM 8.6 mg/dL (8.4-10.2); CARBON DIOXIDE 30 mmol/L (22-30); CHLORIDE 106 mmol/L (98-107); GLUCOSE 89 mg/dL (75-110)
[2020-07-11 06:45] LABS: HEMATOCRIT 37.6 % (37.9-51.0); MEAN CORPUSCULAR HEMOGLOBIN 32.5 pg (27.0-33.4); MEAN CORPUSCULAR HGB CONC 34.7 g/dL (32.0-36.0); MEAN CORPUSCULAR VOLUME 94 fl (80-97); PLATELET COUNT 174 10^3/uL (150-450); RED BLOOD COUNT 4.01 10^6/uL (4.35-5.55); WHITE BLOOD COUNT 7.9 10^3/uL (4.0-10.5)
[2020-07-11 07:07] LABS: ABSOLUTE LYMPHOCYTES# (MANUAL) 0.4 10^3/uL (0.5-4.7); ABSOLUTE MONOCYTES # (MANUAL) 0.1 10^3/uL (0.1-1.4); BASOPHILS % (MANUAL) 0 % (0-2); EOSINOPHILS % (MANUAL) 0 % (0-6); LYMPHOCYTES % (MANUAL) 5 % (13-45); MONOCYTES % (MANUAL) 1 % (3-13); SEGMENTED NEUTROPHILS % (MAN) 94 % (42-78); TOTAL CELLS COUNTED 100
[2020-07-11 07:09] LABS: ANISOCYTOSIS SLIGHT; PLATELET COMMENT ADEQUATE; TOXIC GRANULATION SLIGHT; TOXIC VACUOLATION PRESENT
[2020-07-11] MEDS: IPRATROPIUM/ALBUTEROL 0.5-2.5 MG/3 ML AMPUL NEB SCH ×3 (09:04→20:58)
[2020-07-11] MEDS: BUDESONIDE NEB 0.5 MG/2 ML AMPUL NEB SCH ×2 (09:04→20:58)
[2020-07-11] MEDS: LISINOPRIL 5 MG TABLET PO SCH (10:25)
[2020-07-11] MEDS: DOXYCYCLINE HYCLATE 100 MG TABLET PO SCH ×2 (10:25→22:14)
[2020-07-11] MEDS: FAMOTIDINE 20 MG TABLET PO SCH ×2 (10:25→22:08)
[2020-07-11] MEDS: ENOXAPARIN SODIUM INJ 40 MG/0.4 ML DISP.SYRIN SUBCUT SCH (10:26)
[2020-07-11] MEDS: DEXAMETHASONE SOD PHOSPHATE INJ 4 MG/1 ML VIAL IV SCH ×2 (10:26→22:08)
[2020-07-11] MEDS: METOPROLOL SUCCINATE 50 MG TAB.SR.24H PO SCH ×2 (10:26→22:08)
[2020-07-11] MEDS: INSULIN LISPRO 100 UNIT/ML 3 ML VIAL SUBCUT SCH ×4 (10:27→22:08)
--- NOTE | 2020-07-11 14:08 | PDOC PROGRESS REPORT ---
Subjective Date:: 07/11/20 Subjective:: Patient is currently doing same still some agitations most likely coming from th e Covid with some steroid effect Reason For Visit: SOB/COVID/LUNG CANCER Physical Exam Vital Signs: Temp Pulse Resp BP Pulse Ox 98.4 F 69 18 117/56 L 93 07/11/20 12:40 07/11/20 12:40 07/11/20 12:40 07/11/20 12:40 07/11/20 12:40 Intake & Output 07/10/20 07/11/20 07/12/20 06:59 06:59 06:59 Intake Total 761 240 Output Total 1100 875 Balance -339 -635 Weight 77.3 kg 79.6 kg Eye exam: PRESENT: PERRLA Mouth exam: PRESENT: neck supple Neurological exam: PRESENT: alert, awake Results Laboratory Results: 07/11/20 05:10 07/11/20 05:10 07/11/20 07/11/20 05:10 05:10 WBC 7.9 RBC 4.01 L Hgb 13.0 L Hct 37.6 L MCV 94 MCH 32.5 MCHC 34.7 RDW 15.0 H Plt Count 174 Seg Neutrophils % Not Reportable Sodium 142.5 Potassium 4.0 Chloride 106 Carbon Dioxide 30 Anion Gap 7 BUN 29 H Creatinine 0.86 Est GFR ( Amer) > 60 Glucose 89 Calcium 8.6 07/03/20 07/03/20 07/03/20 11:58 15:20 15:20 Creatine Kinase 576 H CK-MB (CK-2) 3.67 Troponin I 0.082 0.146 NT-Pro-B Natriuret Pep 1490 H 07/03/20 07/03/20 07/04/20 22:02 22:02 04:18 Creatine Kinase 552 H 521 H CK-MB (CK-2) 4.05 Troponin I 0.079 NT-Pro-B Natriuret Pep 07/04/20 07/09/20 07/09/20 04:18 04:30 04:30 Creatine Kinase 245 H CK-MB (CK-2) 3.54 3.00 Troponin I 0.063 0.153 NT-Pro-B Natriuret Pep Impressions: Abdomen Ultrasound 07/03/20 00:00 IMPRESSION: FATTY INFILTRATION OF THE LIVER. LARGE CORTICAL CYST IN THE RIGHT KIDNEY, SUBOPTIMALLY VISUALIZED. NO OTHER SIGNIFICANT FINDING IN THE VISUALIZED ABDOMEN. Chest/Abdomen CTA 07/03/20 13:52 IMPRESSION: 1. No pulmonary emboli. No aortic aneurysm or dissection. 2. Mild centrilobular emphysema. 3. Ground-glass opacification in both lungs. May suggest chronic interstitial changes, interstitial edema, or atypical infectious/ inflammatory process. 4. Cardiomegaly. Cannot exclude mild pulmonary edema. 5. Hepatic steatosis. Chest X-Ray 07/10/20 00:00 IMPRESSION: Slight improvement. 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 Is this a current diagnosis for this admission?: Yes (6) Elevated LFTs Is this a current diagnosis for this admission?: Yes (7) COPD (chronic obstructive pulmonary disease) Qualifiers: COPD type: COPD with acute exacerbation Qualified Code(s): J44.1 - Chronic obstructive pulmonary disease with (acute) exacerbation Is this a current diagnosis for this admission?: Yes (8) Fever Qualifiers: Fever type: unspecified Qualified Code(s): R50.9 - Fever, unspecified Is this a current diagnosis for this admission?: Yes (9) Sleep apnea Qualifiers: Sleep apnea type: unspecified type Qualified Code(s): G47.30 - Sleep apnea, unspecified Is this a current diagnosis for this admission?: Yes - Time Time Spent with patient: 15-24 minutes Level of Care: IMCU Medications reviewed and adjusted accordingly: Yes Anticipated discharge: Other Anticipated DC Timeframe: Other - Plan Summary Plan Summary: We will get the CT of the head and the CT of the chest
[2020-07-11] MEDS: ASPIRIN 81 MG TABLET, CHEWABLE PO SCH (22:08)
[2020-07-11] MEDS: LATANOPROST 0.005% OPH SOLN 2.5 ML OU SCH (22:14)
[2020-07-11] MEDS: HALOPERIDOL LACTATE INJ 5 MG/1 ML VIAL IV PRN (22:14)
[2020-07-12] MEDS: HALOPERIDOL LACTATE INJ 5 MG/1 ML VIAL IV PRN ×2 (05:30→22:48)
[2020-07-12 06:10] LABS: HEMATOCRIT 35.5 % (37.9-51.0); MEAN CORPUSCULAR HEMOGLOBIN 34.4 pg (27.0-33.4); MEAN CORPUSCULAR HGB CONC 36.5 g/dL (32.0-36.0); MEAN CORPUSCULAR VOLUME 94 fl (80-97); PLATELET COUNT 179 10^3/uL (150-450); RED BLOOD COUNT 3.78 10^6/uL (4.35-5.55); RED CELL DISTRIBUTION WIDTH 14.4 % (11.5-14.0); WHITE BLOOD COUNT 6.7 10^3/uL (4.0-10.5)
[2020-07-12 06:22] LABS: BLOOD UREA NITROGEN 27 mg/dL (7-20); CALCIUM 8.7 mg/dL (8.4-10.2); GLUCOSE 157 mg/dL (75-110); POTASSIUM 4.3 mmol/L (3.6-5.0)
[2020-07-12 06:28] LABS: ANION GAP 6 (5-19); CARBON DIOXIDE 28 mmol/L (22-30); CHLORIDE 107 mmol/L (98-107)
[2020-07-12 07:00] LABS: ABSOLUTE LYMPHOCYTES# (MANUAL) 0.3 10^3/uL (0.5-4.7); ABSOLUTE MONOCYTES # (MANUAL) 0.3 10^3/uL (0.1-1.4); BASOPHILS % (MANUAL) 0 % (0-2); EOSINOPHILS % (MANUAL) 0 % (0-6); LYMPHOCYTES % (MANUAL) 5 % (13-45); MONOCYTES % (MANUAL) 5 % (3-13); SEGMENTED NEUTROPHILS % (MAN) 90 % (42-78); TOTAL CELLS COUNTED 100
[2020-07-12 07:02] LABS: PLATELET COMMENT ADEQUATE; TEAR DROP CELLS 1+
[2020-07-12] MEDS: IPRATROPIUM/ALBUTEROL 0.5-2.5 MG/3 ML AMPUL NEB SCH ×3 (09:15→20:28)
[2020-07-12] MEDS: BUDESONIDE NEB 0.5 MG/2 ML AMPUL NEB SCH ×2 (09:16→20:28)
--- NOTE | 2020-07-12 10:58 | PDOC PROGRESS REPORT ---
Subjective Date:: 07/12/20 Subjective:: Patient is currently doing same getting better alert awake oriented x3 No chest pain no shortness of the breath Still some agitationsAt nighttime Reason For Visit: SOB/COVID/LUNG CANCER Physical Exam Vital Signs: Temp Pulse Resp BP Pulse Ox 97.8 F 74 18 126/66 H 100 07/12/20 03:26 07/12/20 09:15 07/12/20 09:15 07/12/20 03:26 07/12/20 09:15 Intake & Output 07/11/20 07/12/20 07/13/20 06:59 06:59 06:59 Intake Total 240 630 Output Total 875 1000 Balance -635 -370 Weight 79.6 kg 77.8 kg General appearance: PRESENT: no acute distress Eye exam: PRESENT: PERRLA Mouth exam: PRESENT: neck supple Respiratory exam: PRESENT: clear to auscultation chad Cardiovascular exam: PRESENT: +S1, +S2 GI/Abdominal exam: PRESENT: normal bowel sounds, soft Neurological exam: PRESENT: alert, awake, oriented to person, oriented to place Results Laboratory Results: 07/12/20 05:07 07/12/20 05:07 07/12/20 07/12/20 05:07 05:07 WBC 6.7 RBC 3.78 L Hgb 13.0 L Hct 35.5 L MCV 94 MCH 34.4 H MCHC 36.5 H RDW 14.4 H Plt Count 179 Seg Neutrophils % Not Reportable Sodium 141.4 Potassium 4.3 Chloride 107 Carbon Dioxide 28 Anion Gap 6 BUN 27 H Creatinine 0.86 Est GFR ( Amer) > 60 Glucose 157 H Calcium 8.7 07/03/20 07/03/20 07/03/20 11:58 15:20 15:20 Creatine Kinase 576 H CK-MB (CK-2) 3.67 Troponin I 0.082 0.146 NT-Pro-B Natriuret Pep 1490 H 07/03/20 07/03/20 07/04/20 22:02 22:02 04:18 Creatine Kinase 552 H 521 H CK-MB (CK-2) 4.05 Troponin I 0.079 NT-Pro-B Natriuret Pep 07/04/20 07/09/20 07/09/20 04:18 04:30 04:30 Creatine Kinase 245 H CK-MB (CK-2) 3.54 3.00 Troponin I 0.063 0.153 NT-Pro-B Natriuret Pep Impressions: Abdomen Ultrasound 07/03/20 00:00 IMPRESSION: FATTY INFILTRATION OF THE LIVER. LARGE CORTICAL CYST IN THE RIGHT KIDNEY, SUBOPTIMALLY VISUALIZED. NO OTHER SIGNIFICANT FINDING IN THE VISUALIZED ABDOMEN. Chest/Abdomen CTA 07/03/20 13:52 IMPRESSION: 1. No pulmonary emboli. No aortic aneurysm or dissection. 2. Mild centrilobular emphysema. 3. Ground-glass opacification in both lungs. May suggest chronic interstitial changes, interstitial edema, or atypical infectious/ inflammatory process. 4. Cardiomegaly. Cannot exclude mild pulmonary edema. 5. Hepatic steatosis. Chest X-Ray 07/10/20 00:00 IMPRESSION: Slight improvement. 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: without fci use Is this a current diagnosis for this admission?: Yes (6) Elevated LFTs Is this a current diagnosis for this admission?: Yes (7) COPD (chronic obstructive pulmonary disease) Qualifiers: COPD type: COPD with acute exacerbation Qualified Code(s): J44.1 - Chronic obstructive pulmonary disease with (acute) exacerbation Is this a current diagnosis for this admission?: Yes (8) Fever Qualifiers: Fever type: unspecified Qualified Code(s): R50.9 - Fever, unspecified Is this a current diagnosis for this admission?: Yes (9) Sleep apnea Qualifiers: Sleep apnea type: unspecified type Qualified Code(s): G47.30 - Sleep apnea, unspecified Is this a current diagnosis for this admission?: Yes - Time Time Spent with patient: 15-24 minutes Level of Care: IMCU Medications reviewed and adjusted accordingly: Yes Anticipated discharge: Home with Homehealth Anticipated DC Timeframe: Other - Plan Summary Plan Summary: Continues the dexamethasone continues to doxycycline we will repeat the CT angiogram today
[2020-07-12] MEDS: INSULIN LISPRO 100 UNIT/ML 3 ML VIAL SUBCUT SCH ×4 (11:09→23:07)
[2020-07-12] MEDS: FAMOTIDINE 20 MG TABLET PO SCH ×2 (11:11→22:44)
[2020-07-12] MEDS: LISINOPRIL 5 MG TABLET PO SCH (11:11)
[2020-07-12] MEDS: DEXAMETHASONE SOD PHOSPHATE INJ 4 MG/1 ML VIAL IV SCH ×2 (11:12→22:44)
[2020-07-12] MEDS: ENOXAPARIN SODIUM INJ 40 MG/0.4 ML DISP.SYRIN SUBCUT SCH (11:12)
[2020-07-12] MEDS: METOPROLOL SUCCINATE 50 MG TAB.SR.24H PO SCH ×2 (11:12→22:44)
[2020-07-12] MEDS: DOXYCYCLINE HYCLATE 100 MG TABLET PO SCH ×2 (11:12→22:44)
[2020-07-12] MEDS: ASPIRIN 81 MG TABLET, CHEWABLE PO SCH (22:44)
[2020-07-12] MEDS: LATANOPROST 0.005% OPH SOLN 2.5 ML OU SCH (23:07)
[2020-07-13 05:53] LABS: ANION GAP 7 (5-19); BLOOD UREA NITROGEN 23 mg/dL (7-20); CALCIUM 8.7 mg/dL (8.4-10.2); CARBON DIOXIDE 27 mmol/L (22-30); CHLORIDE 110 mmol/L (98-107); GLUCOSE 139 mg/dL (75-110); POTASSIUM 4.3 mmol/L (3.6-5.0)
[2020-07-13] MEDS: BUDESONIDE NEB 0.5 MG/2 ML AMPUL NEB SCH ×2 (08:24→20:23)
[2020-07-13] MEDS: IPRATROPIUM/ALBUTEROL 0.5-2.5 MG/3 ML AMPUL NEB SCH ×3 (08:24→20:23)
[2020-07-13] MEDS: LISINOPRIL 5 MG TABLET PO SCH (11:07)
[2020-07-13] MEDS: ENOXAPARIN SODIUM INJ 40 MG/0.4 ML DISP.SYRIN SUBCUT SCH (11:08)
[2020-07-13] MEDS: METOPROLOL SUCCINATE 50 MG TAB.SR.24H PO SCH ×2 (11:08→21:12)
[2020-07-13] MEDS: DOXYCYCLINE HYCLATE 100 MG TABLET PO SCH ×2 (11:08→21:12)
[2020-07-13] MEDS: DEXAMETHASONE SOD PHOSPHATE INJ 4 MG/1 ML VIAL IV SCH ×2 (11:08→21:12)
[2020-07-13] MEDS: FAMOTIDINE 20 MG TABLET PO SCH ×2 (11:08→21:12)
[2020-07-13] MEDS: INSULIN LISPRO 100 UNIT/ML 3 ML VIAL SUBCUT SCH ×3 (11:09→22:15)
--- NOTE | 2020-07-13 11:15 | RADIOLOGY REPORT (SQ) ---
EXAM DESCRIPTION: CHEST 2 VIEWS IMAGES COMPLETED DATE/TIME: 07/13/2020 11:02 am REASON FOR STUDY: covid pneumonia COMPARISON: 07/10/2020 EXAM PARAMETERS: NUMBER OF VIEWS: two views TECHNIQUE: Digital Frontal and Lateral radiographic views of the chest acquired. RADIATION DOSE: NA LIMITATIONS: none FINDINGS: LUNGS AND PLEURA: Persistent bilateral interstitial and patchy bibasilar airspace opacitie s, similar to prior. Possible small right effusion. No pneumothorax. Flattening of the hemidiaphra gm with increased AP diameter. MEDIASTINUM AND HILAR STRUCTURES: No masses or contour abnormalities. HEART AND VASCULAR STRUCTURES: Stable. BONES: No acute findings. HARDWARE: None in the chest. OTHER: No other significant finding. IMPRESSION: Grossly stable bilateral interstitial and patchy bibasilar airspace opacities. TECHNICAL DOCUMENTATION: JOB ID: [id number] 2010 [email or web address]- All Rights Reserved Reading location - IP/workstation name: [email or web address]
--- NOTE | 2020-07-13 12:28 | PDOC PROGRESS REPORT ---
Subjective Date:: 07/13/20 Subjective:: Patient is currently doing same Denied any chest pain no shortness of the breath Still require 8 L oxygen's Reason For Visit: SOB/COVID/LUNG CANCER Physical Exam Vital Signs: Temp Pulse Resp BP Pulse Ox 98.2 F 66 16 128/56 H 100 07/13/20 07:50 07/13/20 08:24 07/13/20 08:24 07/13/20 07:50 07/13/20 08:24 Intake & Output 07/12/20 07/13/20 07/14/20 06:59 06:59 06:59 Intake Total 630 340 Output Total 1000 500 Balance -370 -160 Weight 77.8 kg 76.3 kg General appearance: PRESENT: no acute distress, well-developed, well-nourished Head exam: PRESENT: atraumatic, normocephalic Eye exam: PRESENT: conjunctiva pink, EOMI, PERRLA. ABSENT: scleral icterus Ear exam: PRESENT: normal external ear exam Mouth exam: PRESENT: moist, tongue midline Neck exam: PRESENT: full ROM. ABSENT: carotid bruit, JVD, lymphadenopathy, thyromegaly Respiratory exam: PRESENT: clear to auscultation chad Cardiovascular exam: PRESENT: RRR. ABSENT: diastolic murmur, rubs, systolic murmur Vascular exam: PRESENT: normal capillary refill GI/Abdominal exam: PRESENT: normal bowel sounds, soft. ABSENT: distended, guard ing, mass, organolmegaly, rebound, tenderness Rectal exam: PRESENT: deferred Neurological exam: PRESENT: alert, awake, oriented to person, oriented to place, oriented to time, oriented to situation, CN II-XII grossly intact. ABSENT: motor sensory deficit Psychiatric exam: PRESENT: appropriate affect, normal mood. ABSENT: homicidal ideation, suicidal ideation Skin exam: PRESENT: dry, intact, warm. ABSENT: cyanosis, rash Results Laboratory Results: 07/12/20 05:07 07/13/20 04:44 07/13/20 04:44 Sodium 144.3 Potassium 4.3 Chloride 110 H Carbon Dioxide 27 Anion Gap 7 BUN 23 H Creatinine 0.89 Est GFR ( Amer) > 60 Glucose 139 H Calcium 8.7 07/03/20 07/03/20 07/03/20 11:58 15:20 15:20 Creatine Kinase 576 H CK-MB (CK-2) 3.67 Troponin I 0.082 0.146 NT-Pro-B Natriuret Pep 1490 H 07/03/20 07/03/20 07/04/20 22:02 22:02 04:18 Creatine Kinase 552 H 521 H CK-MB (CK-2) 4.05 Troponin I 0.079 NT-Pro-B Natriuret Pep 07/04/20 07/09/20 07/09/20 04:18 04:30 04:30 Creatine Kinase 245 H CK-MB (CK-2) 3.54 3.00 Troponin I 0.063 0.153 NT-Pro-B Natriuret Pep Impressions: Abdomen Ultrasound 07/03/20 00:00 IMPRESSION: FATTY INFILTRATION OF THE LIVER. LARGE CORTICAL CYST IN THE RIGHT KIDNEY, SUBOPTIMALLY VISUALIZED. NO OTHER SIGNIFICANT FINDING IN THE VISUALIZED ABDOMEN. Chest/Abdomen CTA 07/03/20 13:52 IMPRESSION: 1. No pulmonary emboli. No aortic aneurysm or dissection. 2. Mild centrilobular emphysema. 3. Ground-glass opacification in both lungs. May suggest chronic interstitial changes, interstitial edema, or atypical infectious/ inflammatory process. 4. Cardiomegaly. Cannot exclude mild pulmonary edema. 5. Hepatic steatosis. Chest X-Ray 07/13/20 00:00 IMPRESSION: Grossly stable bilateral interstitial and patchy bibasilar airspace opacities. 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 Is this a current diagnosis for this admission?: Yes (6) Elevated LFTs Is this a current diagnosis for this admission?: Yes (7) COPD (chronic obstructive pulmonary disease) Qualifiers: COPD type: COPD with acute exacerbation Qualified Code(s): J44.1 - Chronic obstructive pulmonary disease with (acute) exacerbation Is this a current diagnosis for this admission?: Yes (8) Fever Qualifiers: Fever type: unspecified Qualified Code(s): R50.9 - Fever, unspecified Is this a current diagnosis for this admission?: Yes (9) Sleep apnea Qualifiers: Sleep apnea type: unspecified type Qualified Code(s): G47.30 - Sleep apnea, unspecified Is this a current diagnosis for this admission?: Yes - Time Time Spent with patient: 15-24 minutes Level of Care: IMCU Medications reviewed and adjusted accordingly: Yes Anticipated discharge: Home with Homehealth Anticipated DC Timeframe: Other - Plan Summary Plan Summary: Continues to current medications
[2020-07-13] MEDS: HALOPERIDOL LACTATE INJ 5 MG/1 ML VIAL IV PRN (19:00)
[2020-07-13] MEDS: ASPIRIN 81 MG TABLET, CHEWABLE PO SCH (21:12)
[2020-07-13] MEDS: LATANOPROST 0.005% OPH SOLN 2.5 ML OU SCH (21:13)
[2020-07-14] MEDS: HALOPERIDOL LACTATE INJ 5 MG/1 ML VIAL IV PRN ×2 (04:01→21:01)
[2020-07-14 05:54] LABS: ABSOLUTE LYMPHOCYTES (AUTO) 0.7 10^3/uL (0.5-4.7); ABSOLUTE MONOCYTES (AUTO) 0.5 10^3/uL (0.1-1.4); ABSOLUTE NEUT (AUTO) 5.5 10^3/uL (1.7-8.2); BASOPHILS % (AUTO) 0.6 % (0-2); EOSINOPHILS % (AUTO) 0.7 % (0-6); HEMATOCRIT 36.2 % (37.9-51.0); HEMOGLOBIN 12.6 g/dL (13.5-17.0); LYMPHOCYTES % (AUTO) 10.2 % (13-45); MEAN CORPUSCULAR HEMOGLOBIN 32.4 pg (27.0-33.4); MEAN CORPUSCULAR HGB CONC 34.7 g/dL (32.0-36.0); MEAN CORPUSCULAR VOLUME 93 fl (80-97); MONOCYTES % (AUTO) 6.7 % (3-13); PLATELET COUNT 189 10^3/uL (150-450); RED BLOOD COUNT 3.88 10^6/uL (4.35-5.55); RED CELL DISTRIBUTION WIDTH 14.6 % (11.5-14.0); SEGMENTED NEUTROPHILS % (AUTO) 81.8 % (42-78); TOTAL CELLS COUNTED % (AUTO) 100 %; WHITE BLOOD COUNT 6.8 10^3/uL (4.0-10.5)
[2020-07-14 06:11] LABS: BLOOD UREA NITROGEN 21 mg/dL (7-20); CALCIUM 8.7 mg/dL (8.4-10.2); GLUCOSE 105 mg/dL (75-110); POTASSIUM 4.4 mmol/L (3.6-5.0)
[2020-07-14 06:18] LABS: ANION GAP 6 (5-19); CARBON DIOXIDE 29 mmol/L (22-30); CHLORIDE 108 mmol/L (98-107)
[2020-07-14] MEDS: IPRATROPIUM/ALBUTEROL 0.5-2.5 MG/3 ML AMPUL NEB SCH ×3 (07:48→21:41)
[2020-07-14] MEDS: BUDESONIDE NEB 0.5 MG/2 ML AMPUL NEB SCH ×2 (07:48→21:41)
[2020-07-14] MEDS: INSULIN LISPRO 100 UNIT/ML 3 ML VIAL SUBCUT SCH ×4 (09:58→21:25)
[2020-07-14] MEDS: ENOXAPARIN SODIUM INJ 40 MG/0.4 ML DISP.SYRIN SUBCUT SCH (11:39)
[2020-07-14] MEDS: DEXAMETHASONE SOD PHOSPHATE INJ 4 MG/1 ML VIAL IV SCH ×2 (11:39→21:28)
[2020-07-14] MEDS: DOXYCYCLINE HYCLATE 100 MG TABLET PO SCH ×2 (11:40→21:28)
[2020-07-14] MEDS: FAMOTIDINE 20 MG TABLET PO SCH ×2 (11:40→21:27)
[2020-07-14] MEDS: LISINOPRIL 5 MG TABLET PO SCH (11:40)
[2020-07-14] MEDS: METOPROLOL SUCCINATE 50 MG TAB.SR.24H PO SCH ×2 (11:40→21:27)
--- NOTE | 2020-07-14 19:50 | PDOC PROGRESS REPORT ---
Subjective Date:: 07/14/20 Subjective:: Patient seen by the bedside, still confused Reason For Visit: SOB/COVID/LUNG CANCER Physical Exam Vital Signs: Temp Pulse Resp BP Pulse Ox 97.7 F 71 16 151/59 H 100 07/14/20 16:13 07/14/20 18:51 07/14/20 16:13 07/14/20 16:13 07/14/20 17:33 Intake & Output 07/13/20 07/14/20 07/15/20 06:59 06:59 06:59 Intake Total 340 874 320 Output Total 500 1050 525 Balance -160 -176 -205 Weight 76.3 kg 76.3 kg General appearance: PRESENT: no acute distress Respiratory exam: PRESENT: rhonchi Cardiovascular exam: PRESENT: +S1, +S2 Neurological exam: PRESENT: alert Results Laboratory Results: 07/14/20 05:14 07/14/20 05:14 07/14/20 07/14/20 05:14 05:14 WBC 6.8 RBC 3.88 L Hgb 12.6 L Hct 36.2 L MCV 93 MCH 32.4 MCHC 34.7 RDW 14.6 H Plt Count 189 Seg Neutrophils % 81.8 H Sodium 143.0 Potassium 4.4 Chloride 108 H Carbon Dioxide 29 Anion Gap 6 BUN 21 H Creatinine 0.88 Est GFR ( Amer) > 60 Glucose 105 Calcium 8.7 07/03/20 07/03/20 07/03/20 11:58 15:20 15:20 Creatine Kinase 576 H CK-MB (CK-2) 3.67 Troponin I 0.082 0.146 NT-Pro-B Natriuret Pep 1490 H 07/03/20 07/03/20 07/04/20 22:02 22:02 04:18 Creatine Kinase 552 H 521 H CK-MB (CK-2) 4.05 Troponin I 0.079 NT-Pro-B Natriuret Pep 07/04/20 07/09/20 07/09/20 04:18 04:30 04:30 Creatine Kinase 245 H CK-MB (CK-2) 3.54 3.00 Troponin I 0.063 0.153 NT-Pro-B Natriuret Pep Impressions: Abdomen Ultrasound 07/03/20 00:00 IMPRESSION: FATTY INFILTRATION OF THE LIVER. LARGE CORTICAL CYST IN THE RIGHT KIDNEY, SUBOPTIMALLY VISUALIZED. NO OTHER SIGNIFICANT FINDING IN THE VISUALIZED ABDOMEN. Chest/Abdomen CTA 07/03/20 13:52 IMPRESSION: 1. No pulmonary emboli. No aortic aneurysm or dissection. 2. Mild centrilobular emphysema. 3. Ground-glass opacification in both lungs. May suggest chronic interstitial changes, interstitial edema, or atypical infectious/ inflammatory process. 4. Cardiomegaly. Cannot exclude mild pulmonary edema. 5. Hepatic steatosis. Chest X-Ray 07/13/20 00:00 IMPRESSION: Grossly stable bilateral interstitial and patchy bibasilar airspace opacities. Assessment & Plan - Diagnosis (1) Acute hypoxemic respiratory failure Is this a current diagnosis for this admission?: Yes Plan: Continue present supplemental oxygen (2) COVID-19 Is this a current diagnosis for this admission?: Yes - Time Time Spent with patient: 15-24 minutes Level of Care: IMCU Medications reviewed and adjusted accordingly: Yes Anticipated discharge: Home Anticipated DC Timeframe: Other
[2020-07-14] MEDS: LATANOPROST 0.005% OPH SOLN 2.5 ML OU SCH (21:28)
[2020-07-14] MEDS: ASPIRIN 81 MG TABLET, CHEWABLE PO SCH (21:28)
[2020-07-15 06:30] LABS: BLOOD UREA NITROGEN 18 mg/dL (7-20); CALCIUM 8.3 mg/dL (8.4-10.2); CARBON DIOXIDE 28 mmol/L (22-30); CHLORIDE 106 mmol/L (98-107); GLUCOSE 76 mg/dL (75-110); POTASSIUM 3.7 mmol/L (3.6-5.0)
[2020-07-15 06:42] LABS: ANION GAP 4 (5-19)
[2020-07-15] MEDS: BUDESONIDE NEB 0.5 MG/2 ML AMPUL NEB SCH ×3 (07:40→21:39)
[2020-07-15] MEDS: IPRATROPIUM/ALBUTEROL 0.5-2.5 MG/3 ML AMPUL NEB SCH ×4 (07:40→21:39)
[2020-07-15] MEDS: INSULIN LISPRO 100 UNIT/ML 3 ML VIAL SUBCUT SCH ×4 (08:42→21:48)
[2020-07-15] MEDS: FAMOTIDINE 20 MG TABLET PO SCH ×2 (09:50→21:13)
[2020-07-15] MEDS: ENOXAPARIN SODIUM INJ 40 MG/0.4 ML DISP.SYRIN SUBCUT SCH (09:50)
[2020-07-15] MEDS: METOPROLOL SUCCINATE 50 MG TAB.SR.24H PO SCH ×2 (09:50→21:13)
[2020-07-15] MEDS: DOXYCYCLINE HYCLATE 100 MG TABLET PO SCH ×2 (09:50→21:13)
[2020-07-15] MEDS: DEXAMETHASONE SOD PHOSPHATE INJ 4 MG/1 ML VIAL IV SCH ×2 (09:51→21:12)
[2020-07-15] MEDS: LISINOPRIL 5 MG TABLET PO SCH (09:51)
--- NOTE | 2020-07-15 18:59 | PDOC PROGRESS REPORT ---
Subjective Date:: 07/15/20 Subjective:: Patient is condition about the same he alternate between confusion and lucidity Reason For Visit: SOB/COVID/LUNG CANCER Physical Exam Vital Signs: Temp Pulse Resp BP Pulse Ox 97.5 F 78 20 164/81 H 95 07/15/20 15:54 07/15/20 15:54 07/15/20 15:54 07/15/20 15:54 07/15/20 16:22 Intake & Output 07/14/20 07/15/20 07/16/20 06:59 06:59 06:59 Intake Total 874 320 597 Output Total 1050 1345 1175 Balance -176 -955 -578 Weight 76.3 kg 77.1 kg General appearance: PRESENT: no acute distress Eye exam: PRESENT: PERRLA Respiratory exam: PRESENT: clear to auscultation chad Cardiovascular exam: PRESENT: +S1, +S2 GI/Abdominal exam: PRESENT: soft Neurological exam: PRESENT: alert Results Laboratory Results: 07/14/20 05:14 07/15/20 05:55 07/15/20 05:55 Sodium 137.9 Potassium 3.7 Chloride 106 Carbon Dioxide 28 Anion Gap 4 L BUN 18 Creatinine 0.81 Est GFR ( Amer) > 60 Glucose 76 Calcium 8.3 L 07/03/20 07/03/20 07/03/20 11:58 15:20 15:20 Creatine Kinase 576 H CK-MB (CK-2) 3.67 Troponin I 0.082 0.146 NT-Pro-B Natriuret Pep 1490 H 07/03/20 07/03/20 07/04/20 22:02 22:02 04:18 Creatine Kinase 552 H 521 H CK-MB (CK-2) 4.05 Troponin I 0.079 NT-Pro-B Natriuret Pep 07/04/20 07/09/20 07/09/20 04:18 04:30 04:30 Creatine Kinase 245 H CK-MB (CK-2) 3.54 3.00 Troponin I 0.063 0.153 NT-Pro-B Natriuret Pep Impressions: Abdomen Ultrasound 07/03/20 00:00 IMPRESSION: FATTY INFILTRATION OF THE LIVER. LARGE CORTICAL CYST IN THE RIGHT KIDNEY, SUBOPTIMALLY VISUALIZED. NO OTHER SIGNIFICANT FINDING IN THE VISUALIZED ABDOMEN. Chest/Abdomen CTA 07/03/20 13:52 IMPRESSION: 1. No pulmonary emboli. No aortic aneurysm or dissection. 2. Mild centrilobular emphysema. 3. Ground-glass opacification in both lungs. May suggest chronic interstitial changes, interstitial edema, or atypical infectious/ inflammatory process. 4. Cardiomegaly. Cannot exclude mild pulmonary edema. 5. Hepatic steatosis. Chest X-Ray 07/13/20 00:00 IMPRESSION: Grossly stable bilateral interstitial and patchy bibasilar airspace opacities. Assessment & Plan - Diagnosis (1) Acute hypoxemic respiratory failure Is this a current diagnosis for this admission?: Yes Plan: Continue present supplemental oxygen (2) COVID-19 Is this a current diagnosis for this admission?: Yes - Time Time Spent with patient: 15-24 minutes Level of Care: IMCU Medications reviewed and adjusted accordingly: Yes Anticipated discharge: Home Anticipated DC Timeframe: Other
[2020-07-15] MEDS: ASPIRIN 81 MG TABLET, CHEWABLE PO SCH (21:12)
[2020-07-15] MEDS: LATANOPROST 0.005% OPH SOLN 2.5 ML OU SCH (21:13)
[2020-07-15] MEDS: HALOPERIDOL LACTATE INJ 5 MG/1 ML VIAL IV PRN (21:44)
[2020-07-16 06:51] LABS: ANION GAP 6 (5-19); BLOOD UREA NITROGEN 18 mg/dL (7-20); CALCIUM 8.8 mg/dL (8.4-10.2); CARBON DIOXIDE 26 mmol/L (22-30); CHLORIDE 104 mmol/L (98-107); GLUCOSE 145 mg/dL (75-110); POTASSIUM 4.8 mmol/L (3.6-5.0)
[2020-07-16] MEDS: IPRATROPIUM/ALBUTEROL 0.5-2.5 MG/3 ML AMPUL NEB SCH ×3 (08:35→20:15)
[2020-07-16] MEDS: BUDESONIDE NEB 0.5 MG/2 ML AMPUL NEB SCH ×2 (08:35→20:15)
[2020-07-16] MEDS: INSULIN LISPRO 100 UNIT/ML 3 ML VIAL SUBCUT SCH ×4 (10:49→21:35)
[2020-07-16] MEDS: FAMOTIDINE 20 MG TABLET PO SCH ×2 (12:05→21:35)
[2020-07-16] MEDS: ENOXAPARIN SODIUM INJ 40 MG/0.4 ML DISP.SYRIN SUBCUT SCH (12:05)
[2020-07-16] MEDS: LISINOPRIL 5 MG TABLET PO SCH (12:05)
[2020-07-16] MEDS: DOXYCYCLINE HYCLATE 100 MG TABLET PO SCH ×2 (12:05→21:35)
[2020-07-16] MEDS: DEXAMETHASONE SOD PHOSPHATE INJ 4 MG/1 ML VIAL IV SCH ×2 (12:06→21:34)
[2020-07-16] MEDS: METOPROLOL SUCCINATE 50 MG TAB.SR.24H PO SCH ×2 (12:06→21:34)
[2020-07-16] MEDS: ASPIRIN 81 MG TABLET, CHEWABLE PO SCH (21:35)
[2020-07-16] MEDS: LATANOPROST 0.005% OPH SOLN 2.5 ML OU SCH (21:36)
--- NOTE | 2020-07-16 21:46 | PDOC PROGRESS REPORT ---
Subjective Date:: 07/16/20 Subjective:: Patient seen by the bedside, more lucid today Reason For Visit: SOB/COVID/LUNG CANCER Physical Exam Vital Signs: Temp Pulse Resp BP Pulse Ox 97.7 F 85 16 159/79 H 93 07/16/20 19:41 07/16/20 19:41 07/16/20 19:41 07/16/20 19:41 07/16/20 19:41 Intake & Output 07/15/20 07/16/20 07/17/20 06:59 06:59 06:59 Intake Total 320 834 150 Output Total 1275 1875 850 Balance -571 -5541 -412 Weight 77.1 kg 79.7 kg 79.7 kg General appearance: PRESENT: no acute distress Eye exam: PRESENT: PERRLA Respiratory exam: PRESENT: clear to auscultation chad Cardiovascular exam: PRESENT: +S1, +S2 GI/Abdominal exam: PRESENT: soft Results Laboratory Results: 07/14/20 05:14 07/16/20 06:02 07/16/20 06:02 Sodium 136.4 L Potassium 4.8 Chloride 104 Carbon Dioxide 26 Anion Gap 6 BUN 18 Creatinine 0.89 Est GFR ( Amer) > 60 Glucose 145 H Calcium 8.8 07/03/20 07/03/20 07/03/20 11:58 15:20 15:20 Creatine Kinase 576 H CK-MB (CK-2) 3.67 Troponin I 0.082 0.146 NT-Pro-B Natriuret Pep 1490 H 07/03/20 07/03/20 07/04/20 22:02 22:02 04:18 Creatine Kinase 552 H 521 H CK-MB (CK-2) 4.05 Troponin I 0.079 NT-Pro-B Natriuret Pep 07/04/20 07/09/20 07/09/20 04:18 04:30 04:30 Creatine Kinase 245 H CK-MB (CK-2) 3.54 3.00 Troponin I 0.063 0.153 NT-Pro-B Natriuret Pep Impressions: Abdomen Ultrasound 07/03/20 00:00 IMPRESSION: FATTY INFILTRATION OF THE LIVER. LARGE CORTICAL CYST IN THE RIGHT KIDNEY, SUBOPTIMALLY VISUALIZED. NO OTHER SIGNIFICANT FINDING IN THE VISUALIZED ABDOMEN. Chest/Abdomen CTA 07/03/20 13:52 IMPRESSION: 1. No pulmonary emboli. No aortic aneurysm or dissection. 2. Mild centrilobular emphysema. 3. Ground-glass opacification in both lungs. May suggest chronic interstitial changes, interstitial edema, or atypical infectious/ inflammatory process. 4. Cardiomegaly. Cannot exclude mild pulmonary edema. 5. Hepatic steatosis. Chest X-Ray 07/13/20 00:00 IMPRESSION: Grossly stable bilateral interstitial and patchy bibasilar airspace opacities. Assessment & Plan - Diagnosis (1) Acute hypoxemic respiratory failure Is this a current diagnosis for this admission?: Yes Plan: Continue present supplemental oxygen (2) COVID-19 Is this a current diagnosis for this admission?: Yes - Time Time Spent with patient: 25-34 minutes Level of Care: IMCU Medications reviewed and adjusted accordingly: Yes Anticipated discharge: Home Anticipated DC Timeframe: within 72 hours
[2020-07-17] MEDS: HALOPERIDOL LACTATE INJ 5 MG/1 ML VIAL IV PRN (05:15)
[2020-07-17] MEDS: IPRATROPIUM/ALBUTEROL 0.5-2.5 MG/3 ML AMPUL NEB SCH ×3 (09:00→19:37)
[2020-07-17] MEDS: BUDESONIDE NEB 0.5 MG/2 ML AMPUL NEB SCH ×2 (09:00→19:37)
[2020-07-17] MEDS: DEXAMETHASONE SOD PHOSPHATE INJ 4 MG/1 ML VIAL IV SCH ×2 (10:47→21:18)
[2020-07-17] MEDS: INSULIN LISPRO 100 UNIT/ML 3 ML VIAL SUBCUT SCH ×4 (10:47→23:13)
[2020-07-17] MEDS: METOPROLOL SUCCINATE 50 MG TAB.SR.24H PO SCH ×2 (10:48→21:17)
[2020-07-17] MEDS: LISINOPRIL 5 MG TABLET PO SCH (10:48)
[2020-07-17] MEDS: ENOXAPARIN SODIUM INJ 40 MG/0.4 ML DISP.SYRIN SUBCUT SCH (10:48)
[2020-07-17] MEDS: DOXYCYCLINE HYCLATE 100 MG TABLET PO SCH ×2 (10:48→21:17)
[2020-07-17] MEDS: FAMOTIDINE 20 MG TABLET PO SCH ×2 (10:49→21:17)
--- NOTE | 2020-07-17 20:57 | PDOC PROGRESS REPORT ---
Subjective Date:: 07/17/20 Subjective:: Patient seen by the bedside, no new complaints today Reason For Visit: SOB/COVID/LUNG CANCER Physical Exam Vital Signs: Temp Pulse Resp BP Pulse Ox 98.2 F 82 18 156/73 H 97 07/17/20 16:05 07/17/20 16:05 07/17/20 16:05 07/17/20 16:05 07/17/20 16:05 Intake & Output 07/16/20 07/17/20 07/18/20 06:59 06:59 06:59 Intake Total 834 630 710 Output Total 1875 1150 Balance -1041 -520 710 Weight 79.7 kg 74.2 kg 74.2 kg General appearance: PRESENT: no acute distress Eye exam: PRESENT: PERRLA Respiratory exam: PRESENT: clear to auscultation chad Cardiovascular exam: PRESENT: +S1, +S2 GI/Abdominal exam: PRESENT: soft Neurological exam: PRESENT: alert Results Laboratory Results: 07/14/20 05:14 07/16/20 06:02 07/03/20 07/03/20 07/03/20 11:58 15:20 15:20 Creatine Kinase 576 H CK-MB (CK-2) 3.67 Troponin I 0.082 0.146 NT-Pro-B Natriuret Pep 1490 H 07/03/20 07/03/20 07/04/20 22:02 22:02 04:18 Creatine Kinase 552 H 521 H CK-MB (CK-2) 4.05 Troponin I 0.079 NT-Pro-B Natriuret Pep 07/04/20 07/09/20 07/09/20 04:18 04:30 04:30 Creatine Kinase 245 H CK-MB (CK-2) 3.54 3.00 Troponin I 0.063 0.153 NT-Pro-B Natriuret Pep Impressions: Abdomen Ultrasound 07/03/20 00:00 IMPRESSION: FATTY INFILTRATION OF THE LIVER. LARGE CORTICAL CYST IN THE RIGHT KIDNEY, SUBOPTIMALLY VISUALIZED. NO OTHER SIGNIFICANT FINDING IN THE VISUALIZED ABDOMEN. Chest/Abdomen CTA 07/03/20 13:52 IMPRESSION: 1. No pulmonary emboli. No aortic aneurysm or dissection. 2. Mild centrilobular emphysema. 3. Ground-glass opacification in both lungs. May suggest chronic interstitial changes, interstitial edema, or atypical infectious/ inflammatory process. 4. Cardiomegaly. Cannot exclude mild pulmonary edema. 5. Hepatic steatosis. Chest X-Ray 07/13/20 00:00 IMPRESSION: Grossly stable bilateral interstitial and patchy bibasilar airspace opacities. Assessment & Plan - Diagnosis (1) Acute hypoxemic respiratory failure Is this a current diagnosis for this admission?: Yes Plan: Continue present supplemental oxygen (2) COVID-19 Is this a current diagnosis for this admission?: Yes - Time Time Spent with patient: 15-24 minutes Level of Care: IMCU Medications reviewed and adjusted accordingly: Yes Anticipated discharge: Home - Inpatient Certification Based on my medical assessment, after consideration of the patient's comorbidities, presenting symptoms, or acuity I expect that the services needed warrant INPATIENT care.: Yes I certify that my determination is in accordance with my understanding of Medicare's requirements for reasonable and necessary INPATIENT services [42 CFR 412.3e].: Yes
[2020-07-17] MEDS: ASPIRIN 81 MG TABLET, CHEWABLE PO SCH (21:17)
[2020-07-17] MEDS: LATANOPROST 0.005% OPH SOLN 2.5 ML OU SCH (23:14)
[2020-07-18] MEDS: IPRATROPIUM/ALBUTEROL 0.5-2.5 MG/3 ML AMPUL NEB SCH ×3 (09:41→20:09)
[2020-07-18] MEDS: BUDESONIDE NEB 0.5 MG/2 ML AMPUL NEB SCH ×2 (09:41→20:09)
[2020-07-18] MEDS: INSULIN LISPRO 100 UNIT/ML 3 ML VIAL SUBCUT SCH ×3 (11:17→22:46)
[2020-07-18] MEDS: FAMOTIDINE 20 MG TABLET PO SCH ×2 (11:21→22:49)
[2020-07-18] MEDS: METOPROLOL SUCCINATE 50 MG TAB.SR.24H PO SCH ×2 (11:22→22:49)
[2020-07-18] MEDS: DEXAMETHASONE SOD PHOSPHATE INJ 4 MG/1 ML VIAL IV SCH ×2 (11:22→22:49)
[2020-07-18] MEDS: LISINOPRIL 5 MG TABLET PO SCH (11:22)
[2020-07-18] MEDS: ENOXAPARIN SODIUM INJ 40 MG/0.4 ML DISP.SYRIN SUBCUT SCH (11:23)
--- NOTE | 2020-07-18 14:34 | RADIOLOGY REPORT (SQ) ---
EXAM DESCRIPTION: CHEST SINGLE VIEW IMAGES COMPLETED DATE/TIME: 07/18/2020 2:24 pm REASON FOR STUDY: covid COMPARISON: 07/13/2020 NUMBER OF VIEWS: One view. TECHNIQUE: Single frontal radiographic image of the chest acquired. LIMITATIONS: None. FINDINGS: LUNGS AND PLEURA: Stable appearance. MEDIASTINUM AND HILAR STRUCTURES: Stable heart size and mediastinal structures. HEART AND VASCULAR STRUCTURES: Stable appearance. BONES: No acute findings. HARDWARE: None in the chest. OTHER: No other significant finding. IMPRESSION: STABLE APPEARANCE OF THE CHEST. TECHNICAL DOCUMENTATION: JOB ID: [id number] 2010 [employer]- All Rights Reserved Reading location - IP/workstation name: [email or web address]
[2020-07-18 19:06] LABS: ALBUMIN 3.2 g/dL (3.5-5.0); ALKALINE PHOSPHATASE 88 U/L (38-126); ANION GAP 8 (5-19); ASPARTATE AMINO TRANSFERASE 47 U/L (17-59); BILIRUBIN,DIRECT 0.3 mg/dL (0.0-0.4); BILIRUBIN,TOTAL 0.8 mg/dL (0.2-1.3); BLOOD UREA NITROGEN 19 mg/dL (7-20); CALCIUM 9.1 mg/dL (8.4-10.2); CARBON DIOXIDE 27 mmol/L (22-30); CHLORIDE 103 mmol/L (98-107); GLUCOSE 134 mg/dL (75-110); POTASSIUM 5.2 mmol/L (3.6-5.0); TOTAL PROTEIN 7.3 g/dL (6.3-8.2)
[2020-07-18 21:28] LABS: ABSOLUTE LYMPHOCYTES (AUTO) 0.7 10^3/uL (0.5-4.7); ABSOLUTE MONOCYTES (AUTO) 0.4 10^3/uL (0.1-1.4); ABSOLUTE NEUT (AUTO) 4.3 10^3/uL (1.7-8.2); BASOPHILS % (AUTO) 0.7 % (0-2); EOSINOPHILS % (AUTO) 0.1 % (0-6); HEMATOCRIT 45.3 % (37.9-51.0); HEMOGLOBIN 14.8 g/dL (13.5-17.0); LYMPHOCYTES % (AUTO) 13.1 % (13-45); MEAN CORPUSCULAR HEMOGLOBIN 28.5 pg (27.0-33.4); MEAN CORPUSCULAR HGB CONC 32.6 g/dL (32.0-36.0); MONOCYTES % (AUTO) 8.1 % (3-13); PLATELET COUNT 222 10^3/uL (150-450); RED BLOOD COUNT 5.19 10^6/uL (4.35-5.55); RED CELL DISTRIBUTION WIDTH 14.3 % (11.5-14.0); TOTAL CELLS COUNTED % (AUTO) 100 %; WHITE BLOOD COUNT 5.5 10^3/uL (4.0-10.5)
--- NOTE | 2020-07-18 21:28 | PDOC DISCHARGE SUMMARY ---
Impression - Admit/DC Date/PCP Admission Date/Primary Care Provider: 07/03/20 15:48 FAITH BA MD Discharge Date: 07/18/20 - Discharge Diagnosis (1) Acute hypoxemic respiratory failure Is this a current diagnosis for this admission?: Yes (2) COVID-19 Is this a current diagnosis for this admission?: Yes (3) Encephalopathy due to 2019 novel coronavirus Is this a current diagnosis for this admission?: Yes (4) Type 2 diabetes mellitus Is this a current diagnosis for this admission?: Yes (5) Elevated troponin Is this a current diagnosis for this admission?: Yes - Additional Information Referrals: FAITH BA MD [Primary Care Provider] - Follow up as needed Home Medications: Budesonide/Formoterol Fumarate [Symbicort HFA 160-4.5 mcg Inhaler 6 gm] 2 puff IH Q12 05/20/15 Metformin HCl 500 mg PO BID 05/20/15 Metoprolol Succinate [Toprol Xl 50 mg Tab.sr] 50 mg PO BID 05/20/15 Simvastatin [Zocor 40 mg Tablet] 40 mg PO DAILY 05/20/15 Bimatoprost [Lumigan 0.01% Oph Soln 2.5 ml/Bottle] 1 drop OU DAILY 07/03/20 Aspirin [Aspirin 81 mg Chewable Tablet] 81 mg PO QHS tab.chew 07/18/20 Ipratropium/Albuterol Sulfate [Duoneb 3 ml Ampul] 3 ml [facility] [id number] vial.[facility] 07/18/20 Lisinopril [Prinivil 5 mg Tablet] 2.5 mg PO DAILY #90 tablet 07/18/20 History of Present Illiness History of Present Illness: DELORES LEWIS is a 79 year old male with history of hypertension, hyperlipidemia, BPH status post TURP, COPD, lung cancer status post right lobectomy several years ago, Covid positive as of last week w. The patient was diagnosed with coronavirus approximately 1 week ago and had been doing well until yesterday when he became acutely short of breath and called EMS. the patient was found to have a very low pulse oximetry by EMS and was treated appropriately. In the emergency room his oxygen saturation came up after he was placed on BiPAP. He was also febrile but denied angina as well as angina equivalent symptoms. Hospital Course Hospital Course: Patient was admitted for the management of acute hypoxemic respiratory failure,COVID-19 positive test (U07.1, COVID-19) with Acute Pneumonia (J12.89, Other viral pneumonia)(If respiratory failure or sepsis present, add as separate assessment). He was treated with noninvasive positive pressure ventilation, BiPAP he received antiviral remdesivir, IV dexamethasone. He also had slight elevated serum troponin, he was seen in consultation by cardiology, the elevated troponin was felt to be related to the SARS-CoV-2 infection.He had episode of delirium for prolonged part of time this was also felt to be related to infection.He has a history of lung cancer years ago status post right lobectomy. Patient is not requiring any more supplemental oxygen the last couple of hours, he wants to go home ,he is getting agitated. It is safe at this point to discharge him home he does not need to go home on oxygen, he has maintained adequate oxygen saturation in ambient air Physical Exam Vital Signs: Temp Pulse Resp BP Pulse Ox 97.4 F 62 20 144/77 H 97 07/18/20 19:49 07/18/20 19:49 07/18/20 19:49 07/18/20 19:49 07/18/20 19:49 Intake & Output 07/17/20 07/18/20 07/19/20 06:59 06:59 06:59 Intake Total 630 1290 720 Output Total 1150 400 Balance -520 1290 320 Weight 74.2 kg 75.9 kg 75.9 kg General appearance: PRESENT: no acute distress Eye exam: PRESENT: PERRLA Respiratory exam: PRESENT: clear to auscultation chad Cardiovascular exam: PRESENT: +S1, +S2 GI/Abdominal exam: PRESENT: soft Neurological exam: PRESENT: alert Results Laboratory Results: WBC Cancelled 07/18/20 18:06 RBC Cancelled 07/18/20 18:06 Hgb Cancelled 07/18/20 18:06 Hct Cancelled 07/18/20 18:06 MCV Cancelled 07/18/20 18:06 MCH Cancelled 07/18/20 18:06 MCHC Cancelled 07/18/20 18:06 RDW Cancelled 07/18/20 18:06 Plt Count Cancelled 07/18/20 18:06 Lymph % (Auto) Cancelled 07/18/20 18:06 Meagher % (Auto) Cancelled 07/18/20 18:06 Eos % (Auto) Cancelled 07/18/20 18:06 Baso % (Auto) Cancelled 07/18/20 18:06 Absolute Neuts (auto) Cancelled 07/18/20 18:06 Absolute Lymphs (auto) Cancelled 07/18/20 18:06 Absolute Monos (auto) Cancelled 07/18/20 18:06 Absolute Eos (auto) Cancelled 07/18/20 18:06 Absolute Basos (auto) Cancelled 07/18/20 18:06 Total Counted 100 07/12/20 05:07 Seg Neutrophils % Cancelled 07/18/20 18:06 Seg Neuts % (Manual) 90 % (42-78) H 07/12/20 05:07 Lymphocytes % (Manual) 5 % (13-45) L 07/12/20 05:07 Atypical Lymphs % 1 % (0) 07/03/20 11:58 Monocytes % (Manual) 5 % (3-13) 07/12/20 05:07 Eosinophils % (Manual) 0 % (0-6) 07/12/20 05:07 Basophils % (Manual) 0 % (0-2) 07/12/20 05:07 Abs Neuts (Manual) 6.0 10^3/uL (1.7-8.2) 07/12/20 05:07 Abs Lymphs (Manual) 0.3 10^3/uL (0.5-4.7) L 07/12/20 05:07 Abs Monocytes (Manual) 0.3 10^3/uL (0.1-1.4) 07/12/20 05:07 Absolute Eos (Manual) 0.0 10^3/uL (0.0-0.6) 07/12/20 05:07 Abs Basophils (Manual) 0.0 10^3/uL (0.0-0.2) 07/12/20 05:07 Toxic Granulation SLIGHT 07/11/20 05:10 Toxic Vacuolation PRESENT 07/11/20 05:10 Platelet Estimate Cancelled 07/18/20 18:06 Clumped Platelets PRESENT 07/09/20 04:30 Platelet Comment ADEQUATE 07/12/20 05:07 Poikilocytosis 1+ 07/09/20 04:30 Anisocytosis SLIGHT 07/11/20 05:10 Tear Drop Cells 1+ 07/12/20 05:07 Karri Cells SLIGHT 07/09/20 04:30 Schistocytes SLIGHT 07/09/20 04:30 RBC Morph Comment NORMO-CYTIC/CHROMIC 07/03/20 11:58 PT 15.6 SEC (11.4-15.4) H 07/03/20 11:58 INR 1.22 07/03/20 11:58 APTT 35.1 SEC (23.5-35.8) 07/03/20 11:58 Carbonic Acid 1.09 mmol/L (1.05-1.35) 07/10/20 11:35 HCO3/H2CO3 Ratio 20:1 07/10/20 11:35 ABG pH 7.41 (7.35-7.45) 07/10/20 11:35 ABG pCO2 36.1 mmHg (35-45) 07/10/20 11:35 ABG pO2 65.7 mmHg (80-100) L 07/10/20 11:35 ABG HCO3 22.4 mmol/L (20-24) 07/10/20 11:35 ABG Total CO2 23.5 mmol/L (23-27) 07/10/20 11:35 ABG O2 Saturation 93.3 % (94-98) L 07/10/20 11:35 ABG Base Excess -1.7 mmol/L 07/10/20 11:35 FiO2 15L 07/10/20 11:35 Sodium 137.6 mmol/L (137-145) 07/18/20 18:06 Potassium 5.2 mmol/L (3.6-5.0) H 07/18/20 18:06 Chloride 103 mmol/L (98-107) 07/18/20 18:06 Carbon Dioxide 27 mmol/L (22-30) 07/18/20 18:06 Anion Gap 8 (5-19) 07/18/20 18:06 BUN 19 mg/dL (7-20) 07/18/20 18:06 Creatinine 0.92 mg/dL (0.52-1.25) 07/18/20 18:06 Est GFR ( Amer) > 60 (>60) 07/18/20 18:06 Est GFR (MDRD) Non-Af > 60 (>60) 07/18/20 18:06 Glucose 134 mg/dL (75-110) H 07/18/20 18:06 POC Glucose 131 mg/dL (70-110) H 07/18/20 16:51 Calcium 9.1 mg/dL (8.4-10.2) 07/18/20 18:06 Magnesium 2.5 mg/dL (1.6-2.3) H 07/06/20 05:27 Total Bilirubin 0.8 mg/dL (0.2-1.3) 07/18/20 18:06 Direct Bilirubin 0.3 mg/dL (0.0-0.4) 07/18/20 18:06 Neonat Total Bilirubin Not Reportable 07/18/20 18:06 Neonat Direct Bilirubin Not Reportable 07/18/20 18:06 Neonat Indirect Bili Not Reportable 07/18/20 18:06 AST 47 U/L (17-59) 07/18/20 18:06 ALT 60 U/L (<50) H 07/18/20 18:06 Alkaline Phosphatase 88 U/L (38-126) 07/18/20 18:06 Creatine Kinase 245 U/L (55-170) H 07/09/20 04:30 CK-MB (CK-2) 3.00 ng/mL (<4.55) 07/09/20 04:30 Troponin I 0.153 ng/mL 07/09/20 04:30 NT-Pro-B Natriuret Pep 1490 pg/mL (<450) H 07/03/20 15:20 Total Protein 7.3 g/dL (6.3-8.2) 07/18/20 18:06 Albumin 3.2 g/dL (3.5-5.0) L 07/18/20 18:06 Urine Color YELLOW 07/03/20 19:16 Urine Appearance SLIGHTLY-CLOUDY 07/03/20 19:16 Urine pH 5.0 (5.0-9.0) 07/03/20 19:16 Ur Specific [place] 1.028 07/03/20 19:16 Urine Protein 100 mg/dL (NEGATIVE) H 07/03/20 19:16 Urine Glucose (UA) NEGATIVE mg/dL (NEGATIVE) 07/03/20 19:16 Urine Ketones TRACE mg/dL (NEGATIVE) H 07/03/20 19:16 Urine Blood MODERATE (NEGATIVE) H 07/03/20 19:16 Urine Nitrite NEGATIVE (NEGATIVE) 07/03/20 19:16 Urine Bilirubin NEGATIVE (NEGATIVE) 07/03/20 19:16 Urine Urobilinogen NEGATIVE mg/dL (<2.0) 07/03/20 19:16 Ur Leukocyte Esterase NEGATIVE (NEGATIVE) 07/03/20 19:16 Urine WBC (Auto) 4 /HPF 07/03/20 19:16 Urine RBC (Auto) 1 /HPF 07/03/20 19:16 Squamous Epi Cells Auto <1 /HPF 07/03/20 19:16 Urine Mucus (Auto) OCC /LPF 07/03/20 19:16 Urine Ascorbic Acid NEGATIVE (NEGATIVE) 07/03/20 19:16 Influenza A (Rapid) Cancelled 07/03/20 16:41 Influenza A (RT-PCR) NEGATIVE (NEGATIVE) 07/03/20 16:41 Influenza B (Rapid) Cancelled 07/03/20 16:41 Influenza B (RT-PCR) NEGATIVE (NEGATIVE) 07/03/20 16:41 RSV (RT-PCR) NEGATIVE (NEGATIVE) 07/03/20 16:41 SARS-CoV-2 Rap RNA(RT-PCR) POSITIVE (NEGATIVE) 07/03/20 16:41 Slides for Path Review Cancelled 07/18/20 18:06 Blood Type O POSITIVE 07/05/20 11:20 07/03/20 07/03/20 07/03/20 11:58 15:20 22:02 CK-MB (CK-2) 3.67 4.05 Troponin I 0.082 0.146 0.079 NT-Pro-B Natriuret Pep 1490 H 07/04/20 07/09/20 04:18 04:30 CK-MB (CK-2) 3.54 3.00 Troponin I 0.063 0.153 NT-Pro-B Natriuret Pep Impressions: Abdomen Ultrasound 07/03/20 00:00 IMPRESSION: FATTY INFILTRATION OF THE LIVER. LARGE CORTICAL CYST IN THE RIGHT KIDNEY, SUBOPTIMALLY VISUALIZED. NO OTHER SIGNIFICANT FINDING IN THE VISUALIZED ABDOMEN. Chest X-Ray 07/03/20 12:03 IMPRESSION: CHRONIC APPEARING INTERSTITIAL CHANGES. NO DEFINITE ACUTE FINDINGS. Chest/Abdomen CTA 07/03/20 13:52 IMPRESSION: 1. No pulmonary emboli. No aortic aneurysm or dissection. 2. Mild centrilobular emphysema. 3. Ground-glass opacification in both lungs. May suggest chronic interstitial changes, interstitial edema, or atypical infectious/ inflammatory process. 4. Cardiomegaly. Cannot exclude mild pulmonary edema. 5. Hepatic steatosis. Chest X-Ray 07/06/20 00:00 IMPRESSION: Chronic diffuse interstitial opacities without a superimposed acute consolidation, pleural effusion or pneumothorax. Chest X-Ray 07/10/20 00:00 IMPRESSION: Slight improvement. Chest X-Ray 07/13/20 00:00 IMPRESSION: Grossly stable bilateral interstitial and patchy bibasilar airspace opacities. Chest X-Ray 07/18/20 00:00 IMPRESSION: STABLE APPEARANCE OF THE CHEST. Stroke Is this a Stroke Patient?: No Acute Heart Failure Is this a Heart Failure Patient?: No
[2020-07-18 21:29] LABS: MEAN CORPUSCULAR VOLUME 87 fl (80-97)
[2020-07-18] MEDS: LATANOPROST 0.005% OPH SOLN 2.5 ML OU SCH (22:48)
[2020-07-18] MEDS: ASPIRIN 81 MG TABLET, CHEWABLE PO SCH (22:49)
[2020-07-19] MEDS: IPRATROPIUM/ALBUTEROL 0.5-2.5 MG/3 ML AMPUL NEB SCH (08:40)
[2020-07-19] MEDS: BUDESONIDE NEB 0.5 MG/2 ML AMPUL NEB SCH (08:41)
[2020-07-19] MEDS: DEXAMETHASONE SOD PHOSPHATE INJ 4 MG/1 ML VIAL IV SCH (10:32)
[2020-07-19] MEDS: METOPROLOL SUCCINATE 50 MG TAB.SR.24H PO SCH (10:33)
[2020-07-19] MEDS: ENOXAPARIN SODIUM INJ 40 MG/0.4 ML DISP.SYRIN SUBCUT SCH (10:33)
[2020-07-19] MEDS: FAMOTIDINE 20 MG TABLET PO SCH (10:33)
[2020-07-19] MEDS: LISINOPRIL 5 MG TABLET PO SCH (10:33)
[2020-07-19] MEDS: INSULIN LISPRO 100 UNIT/ML 3 ML VIAL SUBCUT SCH (10:43)
[2020-07-19 11:19] VITALS: BP 141/74
== END 2020-07-19 11:53 | disposition home or self-care (01) | DRG 177 ==
LOC: ER 11:41 → EH 15:48 → 3W 20:35 → 3N 07-05 23:27
PROVIDERS: ADMIT Family Medicine; ATTEND Family Medicine
PROC: 5A09557 Assistance with Respiratory Ventilation, Greater than 96 Consecutive Hours, Continuous Positive Airway Pressure (ICD-10-PCS; 2020-07-03)
PROC: XW033E5 Introduction of Remdesivir Anti-infective into Peripheral Vein, Percutaneous Approach, New Technology Group 5 (ICD-10-PCS; principal; 2020-07-04)
PROC: XW13325 Transfusion of Convalescent Plasma (Nonautologous) into Peripheral Vein, Percutaneous Approach, New Technology Group 5 (ICD-10-PCS; 2020-07-05)
DX: U07.1 COVID-19 (principal); J12.89 Other viral pneumonia; J96.01 Acute respiratory failure with hypoxia; G93.40 Encephalopathy, unspecified; J44.1 Chronic obstructive pulmonary disease with (acute) exacerbation; C34.91 Malignant neoplasm of unspecified part of right bronchus or lung; J44.0 Chronic obstructive pulmonary disease with (acute) lower respiratory infection; E11.9 Type 2 diabetes mellitus without complications; I10 Essential (primary) hypertension; G47.30 Sleep apnea, unspecified; R77.8 Other specified abnormalities of plasma proteins; E78.5 Hyperlipidemia, unspecified; F43.9 Reaction to severe stress, unspecified; M19.90 Unspecified osteoarthritis, unspecified site; K21.9 Gastro-esophageal reflux disease without esophagitis; Z87.891 Personal history of nicotine dependence; Z90.2 Acquired absence of lung [part of]; Z79.84 Long term (current) use of oral hypoglycemic drugs; Z78.1 Physical restraint status; Z79.899 Other long term (current) drug therapy
CPT/HCPCS: 36415; 36430; 36600; 71045; 71046; 71275; 76705; 80048; 80053; 80076; 81001; 82550; 82553; 82803; 82962; 83735; 83880; 84484; 85025; 85610; 85730; 86900; 86901; 87040; 87086; 93005; 93010; 93306; 94640; 94660; 96361; 96365; 96375; 99285; 0241U; C9803; J0456; J0696; J1100; J1630; J1650; J1815; J3490; J7040; J7050; J7060; S0028